=== PATIENT | female | born 1975 ===

== ENCOUNTER 2020-03-14 12:31 | Outpatient (REF) | payer OTHER, MEDICAID, SELFPAY ==
[2020-03-14 14:11] LABS: Basophils Absolute Auto 0.1 X10*3/uL (0.0-0.2); Basophils Percent Auto 1.1 % (0-2); Eosinophils Absolute Auto 0.4 X10*3/uL (0.0-0.4); Hematocrit 39.8 % (37-47); Hemoglobin 12.6 g/dl (12.0-16.0); Imm Gran Abs Auto 0.01 X10*3/uL (0.00-0.03); Imm Gran Pct Auto 0.1 % (0.0-0.4); Lymphocytes Absolute Auto 2.7 X10*3/uL (1.2-4.9); MANUAL DIFF FLAG NO; Mean Corpuscular HGB Conc 31.7 g/dl (31.0-35.0); Mean Corpuscular Hemoglobin 27.7 pg (27.0-33.0); Mean Corpuscular Volume 87.5 fL (80-98); Mean Platelet Volume 11.7 fL (9.4-12.3); Monocytes Absolute Auto 0.7 X10*3/uL (0.1-1.2); Monocytes Percent Auto 9.3 % (2-11); Neutrophils Percent Auto 50.5 % (45-73); Platelet Count 292 X10*3/uL (160-400); Red Blood Count 4.55 X10*6/uL (4.20-5.50); Red Cell Distribution Width 14.6 % (11.0-16.0)
[2020-03-14 14:32] LABS: Estimated Average Glucose 114 mg/dL; Hemoglobin A1c % 5.6 %
[2020-03-14 14:35] LABS: Glucose Urine UA NEG (NEG); Leukocyte Esterase Urine NEG (NEG); Nitrite Urine NEG (NEG); Urine Blood NEG (NEG); Urine Ketones 15 MG/DL (NEG); Urine Protein NEG (NEG-TRACE)
[2020-03-14 14:42] LABS: Appearance Urine HAZY; Color Urine YELLOW
[2020-03-14 14:53] LABS: Alanine Aminotransferase 29 U/L (0-31); Albumin Level 4.5 g/dL (3.5-5.0); Alkaline Phosphatase 71 U/L (39-117); Anion Gap 13 (12-20); Aspartate Amino Transferase 34 U/L (5-31); Bilirubin Total 0.4 mg/dL (0.0-1.0); Blood Urea Nitrogen 17 mg/dL (9-16); Carbon Dioxide 26 mmol/L (22-29); Chloride 104 mmol/L (96-108); Cholesterol 171 mg/dL; Estimated Glomerular Filt Rate > 60; Glucose Fasting 81 mg/dL (60-99); HDL Cholesterol 48 mg/dL; LDL Cholesterol Calculated 111 mg/dl; Potassium 4.1 mmol/l (3.3-5.1); Sodium 139 mmol/L (135-145); Total Protein 7.2 g/dL (6.5-8.0); Triglycerides 61 mg/dL
[2020-03-14 15:16] LABS: TSH reflex Free T4 1.75 mIU/mL (0.32-4.0); Vitamin D 25-OH Total 28.1 ng/mL (>30)
== END 2020-03-14 12:32 | disposition home or self-care (01) ==
LOC: HO.HMGCLDS 12:31
PROVIDERS: PCP Internal Medicine; Visit Provider Internal Medicine
DX: E55.9 Vitamin D deficiency, unspecified (principal); I10 Essential (primary) hypertension; N39.0 Urinary tract infection, site not specified; E66.9 Obesity, unspecified; E78.00 Pure hypercholesterolemia, unspecified; R53.83 Other fatigue; R42 Dizziness and giddiness; F17.200 Nicotine dependence, unspecified, uncomplicated; R73.01 Impaired fasting glucose
CPT/HCPCS: 36415; 80053; 80061; 81003; 82306; 83036; 84443; 85025

== ENCOUNTER 2020-09-14 09:54 | Outpatient (REF) | payer OTHER, MEDICAID, SELFPAY ==
[2020-09-14 11:14] LABS: MANUAL DIFF FLAG NO
[2020-09-14 11:25] LABS: Basophils Absolute Auto 0.1 X10*3/uL (0.0-0.2); Basophils Percent Auto 1.3 % (0-2); Eosinophils Absolute Auto 0.5 X10*3/uL (0.0-0.4); Hematocrit 38.5 % (37-47); Hemoglobin 11.8 g/dl (12.0-16.0); Imm Gran Abs Auto 0.03 X10*3/uL (0.00-0.03); Imm Gran Pct Auto 0.4 % (0.0-0.4); Lymphocytes Absolute Auto 2.5 X10*3/uL (1.2-4.9); Lymphocytes Percent Auto 30.8 % (20-40); Mean Corpuscular HGB Conc 30.6 g/dl (31.0-35.0); Mean Corpuscular Hemoglobin 26.3 pg (27.0-33.0); Mean Corpuscular Volume 85.9 fL (80-98); Mean Platelet Volume 11.9 fL (9.4-12.3); Monocytes Absolute Auto 0.8 X10*3/uL (0.1-1.2); Monocytes Percent Auto 9.8 % (2-11); Neutrophils Absolute Auto 4.1 X10*3/uL (2.0-8.3); Neutrophils Percent Auto 51.7 % (45-73); Platelet Count 270 X10*3/uL (160-400); Red Blood Count 4.48 X10*6/uL (4.20-5.50); Red Cell Distribution Width 15.6 % (11.0-16.0)
[2020-09-14 11:31] LABS: Estimated Average Glucose 117 mg/dL; Glucose Urine UA NEG (NEG); Hemoglobin A1c % 5.7 %; Leukocyte Esterase Urine NEG (NEG); Nitrite Urine NEG (NEG); PH 7.5 (5.0-8.0); Specific Gravity - Urine 1.015 (1.005-1.025); Urine Blood NEG (NEG); Urine Ketones NEG (NEG); Urine Protein NEG (NEG-TRACE)
[2020-09-14 11:43] LABS: Appearance Urine HAZY; Color Urine YELLOW
[2020-09-14 12:17] LABS: Alanine Aminotransferase 20 U/L (0-31); Alkaline Phosphatase 67 U/L (39-117); Anion Gap 13 (12-20); Aspartate Amino Transferase 20 U/L (5-31); Bilirubin Total 0.3 mg/dL (0.0-1.0); Blood Urea Nitrogen 11 mg/dL (9-16); Calcium 8.7 mg/dL (8.4-10.2); Carbon Dioxide 25 mmol/L (22-29); Chloride 108 mmol/L (96-108); Cholesterol 188 mg/dL; Estimated Glomerular Filt Rate > 60; Glucose Fasting 102 mg/dL (60-99); HDL Cholesterol 45 mg/dL; LDL Cholesterol Calculated 125 mg/dl; Potassium 5.1 mmol/L (3.3-5.1); Sodium 141 mmol/L (135-145); Total Protein 6.4 g/dL (6.5-8.0); Triglycerides 94 mg/dL
[2020-09-14 12:25] LABS: TSH reflex Free T4 1.69 uIU/mL (0.32-4.0); Vitamin D 25-OH Total 20.4 ng/mL (>30)
[2020-09-15 23:26] LABS: Insulin Level Total 12.2 uIU/mL
== END 2020-09-14 09:55 | disposition home or self-care (01) ==
LOC: HO.HMGCLDS 09:54
PROVIDERS: PCP Internal Medicine; Visit Provider Internal Medicine
DX: Z00.00 Encounter for general adult medical examination without abnormal findings (principal); E66.01 Morbid (severe) obesity due to excess calories; Z68.42 Body mass index [BMI] 45.0-49.9, adult; E16.2 Hypoglycemia, unspecified; K21.9 Gastro-esophageal reflux disease without esophagitis; E78.00 Pure hypercholesterolemia, unspecified; E55.9 Vitamin D deficiency, unspecified
CPT/HCPCS: 36415; 80053; 80061; 81003; 82306; 83036; 83525; 84443; 85025

== ENCOUNTER 2020-12-01 08:55 | Outpatient (REF) | payer OTHER, MEDICAID, SELFPAY ==
--- NOTE | ~2020-12-01 | XR_ITS ---
EXAMINATION: XR CHEST CLINICAL INFORMATION: Unspecified asthma with acute exacerbation COMPARISON: None TECHNIQUE: 2 views of the chest were obtained. FINDINGS: No significant abnormality is noted involving the heart, lungs, mediastinum, bony thorax or soft tissues. XR/XR chest 2V IMPRESSION: Unremarkable examination.
== END 2020-12-01 08:56 | disposition home or self-care (01) ==
LOC: HO.HMGCX 08:55
PROVIDERS: PCP Internal Medicine; Visit Provider Nurse Practitioner Family
DX: Z13.89 Encounter for screening for other disorder (principal)
CPT/HCPCS: 71046

== ENCOUNTER 2021-06-28 10:54 | Outpatient (REF) | payer OTHER, MEDICAID, SELFPAY ==
[2021-06-28 13:46] LABS: MANUAL DIFF FLAG NO
[2021-06-28 13:48] LABS: Basophils Absolute Auto 0.1 X10*3/uL (0.0-0.2); Basophils Percent Auto 0.3 % (0-2); Eosinophils Percent Auto 0.1 % (0-4); Hematocrit 38.3 % (37.0-47.0); Imm Gran Pct Auto 0.7 % (0.0-0.4); Lymphocytes Absolute Auto 3.5 X10*3/uL (1.2-4.9); Lymphocytes Percent Auto 23.1 % (20-40); Mean Corpuscular HGB Conc 31.3 g/dl (31.0-35.0); Mean Corpuscular Volume 86.3 fL (80.0-98.0); Mean Platelet Volume 12.1 fL (9.4-12.3); Monocytes Percent Auto 6.4 % (2-11); Neutrophils Absolute Auto 10.4 x10*3/uL (2.0-8.3); Neutrophils Percent Auto 69.4 % (45-73); Platelet Count 255 X10*3/uL (160-400); Red Blood Count 4.44 X10*6/uL (4.20-5.50); Red Cell Distribution Width 15.1 % (11.0-16.0)
[2021-06-28 14:08] LABS: Alanine Aminotransferase 28 U/L (0-31); Albumin Level 3.9 g/dL (3.5-5.0); Alkaline Phosphatase 68 U/L (39-117); Anion Gap 11 (12-20); Aspartate Amino Transferase 20 U/L (5-31); Bilirubin Total 0.4 mg/dL (0.0-1.0); Blood Urea Nitrogen 12 mg/dL (9-16); Calcium 9.3 mg/dL (8.4-10.2); Carbon Dioxide 29 mmol/L (22-29); Chloride 104 mmol/L (96-108); Cholesterol 208 mg/dL; Estimated Glomerular Filt Rate > 60; Glucose Fasting 86 mg/dL (60-99); HDL Cholesterol 58 mg/dL; LDL Cholesterol Calculated 134 mg/dl; Sodium 140 mmol/L (135-145); Total Protein 6.5 g/dL (6.5-8.0); Triglycerides 84 mg/dL
[2021-06-28 14:26] LABS: Appearance Urine HAZY; Color Urine YELLOW; Glucose Urine UA NEG (NEG); Leukocyte Esterase Urine NEG (NEG); Nitrite Urine NEG (NEG); PH 6.5 (5.0-8.0); Specific Gravity - Urine >= 1.030 (1.005-1.025); Urine Blood NEG (NEG); Urine Ketones NEG (NEG); Urine Protein NEG (NEG-TRACE)
[2021-06-28 14:30] LABS: TSH reflex Free T4 1.19 uIU/mL (0.32-4.0); Vitamin D 25-OH Total 22.8 ng/mL (>30)
== END 2021-06-28 10:55 | disposition home or self-care (01) ==
LOC: HO.HMGCLDS 10:54
PROVIDERS: PCP Internal Medicine; Visit Provider Internal Medicine
DX: I10 Essential (primary) hypertension (principal); E55.9 Vitamin D deficiency, unspecified; E78.00 Pure hypercholesterolemia, unspecified
CPT/HCPCS: 36415; 80053; 80061; 81003; 82306; 84443; 85025

== ENCOUNTER 2022-01-30 11:11 | Outpatient (REF) | payer OTHER, MEDICAID, SELFPAY ==
[2022-01-30 15:10] LABS: Alanine Aminotransferase 36 U/L (0-31); Albumin Level 4.4 g/dL (3.5-5.0); Alkaline Phosphatase 72 U/L (39-117); Anion Gap 11 (12-20); Aspartate Amino Transferase 33 U/L (5-31); Bilirubin Total 0.4 mg/dL (0.0-1.0); Blood Urea Nitrogen 17 mg/dL (9-16); Calcium 9.4 mg/dL (8.4-10.2); Carbon Dioxide 27 mmol/L (22-29); Chloride 103 mmol/L (96-108); Cholesterol 212 mg/dL; Estimated Glomerular Filt Rate > 60; Glucose Fasting 88 mg/dL (60-99); HDL Cholesterol 57 mg/dL; LDL Cholesterol Calculated 138 mg/dl; Potassium 4.5 mmol/L (3.3-5.1); Sodium 136 mmol/L (135-145); TSH reflex Free T4 2.26 uIU/mL (0.32-4.0); Triglycerides 85 mg/dL; Vitamin D 25-OH Total 25.7 ng/mL (>30)
== END 2022-01-30 11:12 | disposition home or self-care (01) ==
LOC: HO.HMGCLDS 11:11
PROVIDERS: PCP Internal Medicine; Visit Provider Internal Medicine
DX: E55.9 Vitamin D deficiency, unspecified (principal); E78.00 Pure hypercholesterolemia, unspecified
CPT/HCPCS: 36415; 80053; 80061; 82306; 84443

== ENCOUNTER → 2022-02-20 14:09 | Outpatient (BNVA) | payer OTHER, SELFPAY | PROVIDERS: PCP Internal Medicine; Visit Provider Physician Assistant Medical | DX: Z77.21 Contact with and (suspected) exposure to potentially hazardous body fluids (principal) | CPT/HCPCS: 36415; 84450; 84460; 86706; 86803; 87389; 99203 ==

== ENCOUNTER → 2022-03-20 13:18 | Outpatient (REF) | payer OTHER, MEDICAID, SELFPAY ==
--- NOTE | 2022-03-20 13:21 | CA_ITS ---
Transthoracic Echocardiogram Patient (Last, First, Middle): Kimberly Arthur, Gender: Female Date of : 1975 Age: 46 Procedure Date: 03/20/2022 Procedure Type: Transthoracic Echocardiogram Location: OP Height: 170.18 cm Weight: 127.01 kg BSA: 2.33 m2 Heart Rate: bpm BP: 140 / 92 mmHg Feeder/Folder: TO Referring MD: Jermaine Waldron MD Computerized [place] Recorder: Lj Sargent MD Symptoms: R00.2 - Palpitations Study Quality: Adequate ECG Rhythm: Sinus Conclusions: - Essentially normal study Findings Left Ventricle Normal left ventricular size, thickness, and systolic function. The visually estimated ejection fraction is between 60-65%. Spectral Doppler is indicative of a normal filling pattern. Right Ventricle Normal right ventricular cavity size and systolic function. Atria Both atria are normal in size. Interatrial shunt cannot be excluded. Aortic Valve Normal aortic valve structure and function. There is no aortic valve stenosis. There is no aortic valve regurgitation. Mitral Valve Normal mitral valve structure and function. There is trace mitral valve regurgitation. There is no mitral valve stenosis. Pulmonic Valve The pulmonic valve is likely normal. Tricuspid Valve Normal tricuspid valve structure. There is no tricuspid valve regurgitation. The right ventricular systolic pressure is normal. Normal right atrial pressure. There is no evidence of pulmonary hypertension. Great Vessels All visible segments of the aorta are normal in size. The pulmonary artery was not well visualized. Venous The inferior vena cava is normal in size and collapses greater than 50% with inspiration. Pericardium/Pleural There is no evidence of pericardial effusion. Prior Study Comparison No prior study available for comparison. Measurements 2D Linear Measurements IVSd: 1.02 0.6-0.9/0.6-1.0 cm LVIDd: 5.05 3.9-5.3/4.2-5.9 cm LVIDd Index: 2.17 2.4-3.2/2.2-3.1 cm/m2 LVIDs: 2.97 2.0-3.6 cm LVPWd: 0.86 0.7-1.1 cm LA Diam: 4.00 2.7-3.8/3.0-4.0 cm LAIDs Index: 1.72 1.5-2.3 cm/m2 LV Mass: 211.44 67-162/88-224 g LV Mass Index: 90.75 43-95/49-115 g/m2 LVOT Diam: 2.10 3.0+(-)1.3 cm 2D Systolic Function EF 4C: 62.60 >55% EF 2C: 66.60 >55% EF BiP: 64.80 >55% Mitral Valve MV Pk E: 0.90 MV PK A: 0.82 MV Decel Time: 166.00 E/A: 1.10 E'Lateral: 10.30 E'Medial: 8.27 E/E' Med: 10.90 E/E' Lat: 8.70 PHT: 49.00 MVA PHT: 4.49 Decel Nicholas: 5.42 Aortic Valve AoV Pk Cody: 2.05 AoV Mn Cody: 1.43 AoV VTI: 0.42 AoV Pk Grad: 17.00 Aov Mn Grad: 9.00 FREDERICK Cont.VTI: 2.41 LVOT LVOT Pk Cody: 1.43 LVOT Mn Cody: 1.00 LVOT VTI: 0.30 LVOT Pk Grad: 8.00 LVOT Mn Grad: 4.00 LVOT Diam: 2.10 LVOT Area: 3.46 Diastolic Function MV Pk E: 0.90 MV Pk A: 0.82 E/A: 1.10 E'Medial: 8.27 E/E' Med: 10.90 E' Laterial: 10.30 E/E' Lat: 8.70 Right Ventricle TAPSE (mm): 24.80 TVS' Cody: 17.70 Tricuspid Valve TR Pk Cody: 2.67 TR Pk Grad: 29.00 RA Press: 3.00 RVSP: 32.00 Great Vessels Aorta Sinus of Valsalva: 3.19 2.0-3.[address] [place]: 2.40 1.7-3.4 cm Ao Asc: 3.00 2.1-3.4 cm Updated in Other Vendor System with Status of Final Lj Sargent MD electronically signed on 03/20/2022 4:34:57 PM with status of Final
--- NOTE | 2022-03-20 13:21 | HM_ITS ---
* Total monitoring time approximately 3 days. * Underlying rhythm is sinus. Average ventricular rate 83/Min. Range 51 to 132/Min. * Very rare PVCs/PACs. * No significant pauses or AV blocks. * No patient marker or diary. MTDD
== END ==
LOC: HO.CARD 13:18
PROVIDERS: PCP Internal Medicine; Visit Provider Internal Medicine
DX: R06.09 Other forms of dyspnea (principal); R00.2 Palpitations
CPT/HCPCS: 93242; 93306

== ENCOUNTER → 2022-04-03 12:23 | Outpatient (BNVA) | payer OTHER, SELFPAY | PROVIDERS: PCP Internal Medicine | DX: Z77.21 Contact with and (suspected) exposure to potentially hazardous body fluids (principal) | CPT/HCPCS: 36415; 84450; 84460; 87389 ==

== ENCOUNTER → 2022-04-03 12:42 | Outpatient (REF) | payer OTHER, SELFPAY ==
--- NOTE | 2022-04-03 13:16 | HM_ITS ---
* Total monitoring time 3 days. * Underlying rhythm is sinus. Average ventricular rate 82/Min. Range 65 to 136/Min. * Minimal PAC/PVC burden. 6 PACs and 1 PVC. * No sustained arrhythmias. * No significant pauses or AV block. * Palpitations in diary correlates with sinus rhythm and artifact. MTDD
== END ==
LOC: HO.CARD 12:42
PROVIDERS: Visit Provider Internal Medicine
DX: R00.2 Palpitations (principal)
CPT/HCPCS: 93242

== ENCOUNTER → 2022-06-04 10:55 | Outpatient (BNVA) | payer OTHER, SELFPAY | PROVIDERS: PCP Internal Medicine | DX: Z77.21 Contact with and (suspected) exposure to potentially hazardous body fluids (principal) | CPT/HCPCS: 36415; 80053; 80061; 86706; 86803; 87389; 99211 ==

== ENCOUNTER 2022-07-05 10:50 | Outpatient (REF) | payer OTHER, MEDICAID, SELFPAY ==
[2022-07-05 11:04] LABS: MANUAL DIFF FLAG NO
[2022-07-05 11:53] LABS: Basophils Absolute Auto 0.1 X10*3/uL (0.0-0.2); Basophils Percent Auto 1.3 % (0-2); Eosinophils Absolute Auto 0.4 X10*3/uL (0.0-0.4); Eosinophils Percent Auto 4.8 % (0-4); Hematocrit 41.5 % (37.0-47.0); Hemoglobin 12.8 g/dl (12.0-16.0); Imm Gran Abs Auto 0.03 X10*3/uL (0.00-0.03); Imm Gran Pct Auto 0.4 % (0.0-0.4); Lymphocytes Absolute Auto 2.7 X10*3/uL (1.2-4.9); Lymphocytes Percent Auto 35.4 % (20-40); Mean Corpuscular HGB Conc 30.8 g/dl (31.0-35.0); Mean Corpuscular Hemoglobin 27.1 pg (27.0-33.0); Mean Corpuscular Volume 87.9 fL (80.0-98.0); Mean Platelet Volume 12.3 fL (9.4-12.3); Monocytes Absolute Auto 0.7 X10*3/uL (0.1-1.2); Monocytes Percent Auto 9.2 % (2-11); Neutrophils Absolute Auto 3.8 x10*3/uL (2.0-8.3); Neutrophils Percent Auto 48.9 % (45-73); Platelet Count 250 X10*3/uL (160-400); Red Blood Count 4.72 X10*6/uL (4.20-5.50); Red Cell Distribution Width 14.9 % (11.0-16.0); White Blood Count 7.8 X10*3/uL (4.8-10.8)
[2022-07-05 12:30] LABS: Alanine Aminotransferase 36 U/L (0-31); Aspartate Amino Transferase 32 U/L (5-31)
[2022-07-05 12:37] LABS: Alanine Aminotransferase 37 U/L (0-31); Albumin Level 4.1 g/dL (3.5-5.0); Alkaline Phosphatase 63 U/L (39-117); Anion Gap 13 (12-20); Aspartate Amino Transferase 32 U/L (5-31); Bilirubin Total 0.4 mg/dL (0.0-1.0); Blood Urea Nitrogen 13 mg/dL (9-16); Calcium 9.3 mg/dL (8.4-10.2); Carbon Dioxide 24 mmol/L (22-29); Chloride 107 mmol/L (96-108); Estimated Glomerular Filt Rate > 60; Glucose Random 86 mg/dL (60-115); Lipase 22 U/L (8-78); Potassium 4.5 mmol/L (3.3-5.1); Sodium 139 mmol/L (135-145); Total Protein 6.7 g/dL (6.5-8.0)
== END 2022-07-05 10:51 | disposition home or self-care (01) ==
LOC: HO.LAB 10:50
PROVIDERS: Internal Medicine; PCP Internal Medicine; Visit Provider Internal Medicine
DX: R79.89 Other specified abnormal findings of blood chemistry (principal); Z77.21 Contact with and (suspected) exposure to potentially hazardous body fluids
CPT/HCPCS: 36415; 80053; 83690; 84450; 84460; 85025

== ENCOUNTER → 2022-08-22 10:53 | Outpatient (BNVA) | payer OTHER, SELFPAY | PROVIDERS: PCP Internal Medicine | DX: Z77.21 Contact with and (suspected) exposure to potentially hazardous body fluids (principal) | CPT/HCPCS: 36415; 80053; 80061; 81003; 82306; 84443; 84450; 84460; 85025; 86803; 87389; 99211 ==

== ENCOUNTER 2022-11-14 09:57 | Outpatient (AMB) | payer OTHER, MEDICAID, SELFPAY ==
[2022-11-14 09:58] VITALS: BP 142/86; PULSE 84; O2SAT 100; BMI 46.4
--- NOTE | 2022-11-14 09:58 | A.OFFPC_ITS ---
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 Allergies atorvastatin Allergy (Unknown, Verified 11/14/22 10:22) chest pain Medication List - Last Reconciled 11/14/22 by JOVI Ochoa albuterol sulfate 90 mcg/actuation (ProAir HFA) 2 puffs inhalation Q4-6H PRN 30 days budesonide-formoterol 160-4.5 mcg/actuation (Symbicort) 2 puffs inhalation BID 30 days bupropion HCl 300 mg PO QAM bupropion HCl 150 mg PO QAM cholecalciferol (vitamin D3) 50 mcg PO DAILY 90 days clonazepam 1/2 to 1 tablet orally once a day as needed for anxiety; 30 days fluoxetine 20 mg PO QAM 90 days loratadine 10 mg PO DAILY PRN 90 days metoprolol succinate ER 25 mg PO DAILY 90 days Mounjaro (tirzepatide) 2.5 mg (0.5 mL) subcut QWEEK 4 weeks NS omeprazole 40 mg PO DAILY rosuvastatin 5 mg PO DAILY 90 days semaglutide (weight loss) (Wegovy) 0.25 mg (0.5 mL) subcut QWEEK Tobacco use date assessed: 11/14/22 Dental Screening Dental Screen Date: 11/14/22 Did you have a dental visit in the last 12 months?: Yes Did you have a dental problem in the last 6 months where you did not have access to dental care?: No Was dental information given to patient?: Patient has dentist HPI ED f/u for palpitations HPI Details Patient is a 47-year-old female presents today to follow-up after emergency department visit [facility] 11/13/2022 due to palpitations for the past [address] Waldron. Medical history significant for hypercholesterolemia, asthma, GERD, insomnia, smoker, anxiety, depression, intermittent palpitations among others. In ED on monitor her heart rate is normal. X-ray, EKG, troponin, CBC and electrolytes are all normal. Patient has been normal sinus rhythm. Patient was instructed to follow-up with her PCP for another Holter monitor. Today, patient reports almost constant palpitations, she reports them in the past as well. Reports intermittent lightheadedness. She reports drinking coffee and smoking 3-5 cigarettes per day. No shortness of breath or chest pain. 03/2022 * Total monitoring time 3 days. * Underlying rhythm is sinus. Average ventricular rate 82/Min. Range 65 to 136/Min. * Minimal PAC/PVC burden. 6 PACs and 1 PVC. * No sustained arrhythmias. * No significant pauses or AV block. * Palpitations in diary correlates with sinus rhythm and artifact. [facility] Medical History Elevated LFTs Morbid obesity with BMI of 40.0-44.9, adult Depression Anxiety Morbid obesity with BMI of 45.0-49.9, adult Hypoglycemia Recurrent urinary tract infection Smoker Insomnia Fatigue GERD without esophagitis Vitamin D deficiency Asthma Pure hypercholesterolemia Dizziness Surgical History History of use of contraceptive intrauterine device (IUD) Family History Father Hypertension Mother Diabetes Sister Cervical cancer Social History Housing: House Alcohol intake: current Alcohol intake frequency: holidays/special occasions only Patient Tobacco Use Status: Current everyday Tobacco user Tobacco use type: Cigarette Cigarettes Per Day: 4 e-Cigarette/Vaping Use: Never Used Second Hand Smoke Exposure: Yes service: No Current occupational status: employed Cognitive needs: No Hearing needs: No Vision needs: No Questionnaire Thrive Questionnaire Date Thrive assessed: 07/05/22 AUDIT C Alcohol Use Questionnaire (AUDIT-C) 1. How often do you have a drink containing alcohol?: Never 3. How often do you have six or more drinks on one occasion?: Never Total Score: 0 Score Reviewed/Action Taken: No CHARO-7 AMB Questionnaire CHARO-7 Date CHARO - 7 assessed: 07/05/22 Source: Developed by Kathy KayeW. Simeon, Jason Harper and colleagues, with an educational mani from [employer]. Review of Systems Const Denies body aches, Denies chills, Denies fever(s) and Denies headache(s) Eyes Denies change in vision ENT Denies dizziness, Denies otalgia, Denies headache(s), Denies nasal discharge, Denies sinus pain and Denies sore throat Card Details: Palpitations Denies chest pain, Denies edema, Denies lightheadedness and Denies dyspnea Resp Denies cough, Denies dyspnea and Denies wheezing GI Denies abdominal pain Denies dysuria Musc Denies myalgias Skin/Breast Denies rash Neuro Denies dizziness and Denies headache(s) Aller/Immun Denies wheezing Physical exam (Primary Care) Vital Signs: Last Vital Signs Pulse 84 11/14/22 09:58 BP 142/86 H 11/14/22 09:58 Pulse Ox 100 11/14/22 09:58 Oxygen Delivery Method Room Air 11/14/22 09:58 BMI result Body Mass Index 46.4 Tobacco/Smoking Status: Tobacco use Status Tobacco use date assessed 11/14/22 11/14/22 10:00 Patient Tobacco Use Status Current everyday Tobacco 11/14/22 09:59 Tobacco use type Cigarette 11/14/22 09:59 e-Cigarette/Vaping Use Never Used 11/14/22 09:59 Thrive Assessment: Date of Thrive Assessment Date Thrive assessed 07/05/22 11/14/22 09:59 Const General: cooperative and no acute distress Orientation/consciousness: patient oriented x3 HENMT Head: Yes normocephalic and Yes atraumatic Face and sinus: Yes sinuses nontender Mouth: oropharynx normal and moist mucous membranes Throat: Yes posterior oropharynx normal Eyes General: appearance normal, both eyes and all related structures Pupils: Equal, round and reactive pupils present Neck Neck: Yes normal visual inspection, Yes full ROM and Yes no lymphadenopathy Thyroid: Thyroid normal Resp Effort & Inspection: normal respiratory effort and able to speak in complete sentences Auscultation: clear to auscultation bilaterally, no crackles, no rales, no rhonchi and no wheezes Cardio Rate: regular rate Rhythm: regular rhythm Heart sounds: S1 normal heart sound present, S2 normal heart sound present and no murmurs GI Auscultation: normal bowel sounds Skin General skin exam: no rashes or lesions noted Neuro General: patient oriented x3 Cranial nerves: Yes Equal, round and reactive pupils present Gait exam (Neuro): Normal gait present Extrem General: Yes full ROM Assessment and Plan Assessment & Plan (1) Intermittent palpitations: Code(s): R00.2 - Palpitations Plan: Patient with almost constant palpitations for the past 4 days. Was seen in the emergency department no acute findings. Will check thyroid blood work. Will obtain Holter monitor. Will refer to Cardiology for an evaluation and treat ment. Signs and symptoms reviewed to notify provider or go to the emergency department. Patient agreed with the plan. Orders: Orders TSH reflex Free T4 Today R00.2 - Palpitations ECG 3 day holter monitor Today R00.2 - Palpitations Referrals Cardiology Referral R00.2 - Palpitations Coding Level of Care Code Est Pt Level 3 (46771) Diagnoses Intermittent palpitations R00.2
[2022-11-14 10:39] VITALS: BP 126/84
== END 2022-11-14 10:41 | disposition home or self-care (01) ==
PROVIDERS: PCP Internal Medicine; Visit Provider Nurse Practitioner Family
DX: R00.2 Palpitations (principal)
CPT/HCPCS: 99213

== ENCOUNTER → 2022-11-19 09:23 | Outpatient (REF) | payer OTHER, SELFPAY ==
--- NOTE | 2022-11-19 09:26 | HM_ITS ---
Conclusion: 1. Patient was monitored for total period of 2 days and 12 hours 2. Baseline was normal sinus rhythm with average heart of 84 beats per minute 3. No significant pauses noted 4. No significant arrhythmias noted 5. No patient reported events MTDD
== END ==
LOC: HO.CARD 09:23
PROVIDERS: PCP Internal Medicine; Visit Provider Nurse Practitioner Family
DX: R00.2 Palpitations (principal)
CPT/HCPCS: 93242

== ENCOUNTER → 2022-11-19 09:26 | Outpatient (BNV) | payer OTHER, SELFPAY | PROVIDERS: PCP Internal Medicine; Visit Provider Internal Medicine Cardiovascular Disease | DX: R00.2 Palpitations (principal) | CPT/HCPCS: 93244 ==

== ENCOUNTER → 2022-11-22 08:47 | Outpatient (BNVA) | payer OTHER, SELFPAY | PROVIDERS: PCP Internal Medicine | DX: Z77.21 Contact with and (suspected) exposure to potentially hazardous body fluids (principal) | CPT/HCPCS: 99211 ==

== ENCOUNTER → 2022-12-21 10:41 | Outpatient (BNVA) | payer OTHER, SELFPAY | PROVIDERS: PCP Internal Medicine; Visit Provider Physician Assistant Surgical ==

== ENCOUNTER 2022-12-27 11:19 | Outpatient (AMB) | payer OTHER, MEDICAID, SELFPAY ==
[2022-12-27 11:21] VITALS: BP 118/80; PULSE 87; O2SAT 98
--- NOTE | 2022-12-27 11:21 | MHC.PC.OV ---
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 Required: No Accompanied by: Self / Same As Patient Allergies atorvastatin Allergy (Unknown, Verified 12/27/22 11:37) chest pain Medication List - Last Reconciled 12/27/22 by Jermaine Waldron MD albuterol sulfate 90 mcg/actuation (ProAir HFA) 2 puffs inhalation Q4-6H PRN 30 days budesonide-formoterol 160-4.5 mcg/actuation (Symbicort) 2 puffs inhalation BID 30 days bupropion HCl 300 mg PO QAM bupropion HCl 150 mg PO QAM cholecalciferol (vitamin D3) 50 mcg PO DAILY 90 days clonazepam 1/2 to 1 tablet orally once a day as needed for anxiety; 30 days fluoxetine 20 mg PO QAM 90 days loratadine 10 mg PO DAILY PRN 90 days metoprolol succinate ER 25 mg PO DAILY 90 days omeprazole 40 mg PO DAILY rosuvastatin 5 mg PO DAILY 90 days semaglutide (weight loss) (Wegovy) 0.25 mg (0.5 mL) subcut QWEEK Tobacco use date assessed: 12/27/22 Dental Screening Dental Screen Date: 12/27/22 Did you have a dental visit in the last 12 months?: No Did you have a dental problem in the last 6 months where you did not have access to dental care?: No Was dental information given to patient?: No HPI Papitations HPI Details Patient comes in today for her follow up visit States that she is still experiencing on and off palpitations Patient went to the ER last month when she started feeling sensations of palpitations again - recalls feeling like her heart was beating irregularly and was going to come out of her chest at the time Work ups done in the ER again all came out negative She had an echocardiogram done back in March that came out completely normal She also had a 3 day Holter done back in November that came out normal - baseline was normal sinus rhythm with an average heart rate of 84 beats per minute, with no significant pauses or arrhythmias noted She has been referred to Cardiology and is scheduled to be seen in February 2023 States that she went to [place] and was seen by a fan blade truer there recently as she could not wait until February to get seen - was advised that she may need to get at least a 7-day Holter monitor to hopefully catch her arrhythmia when it is ongoing She currently denies any dizziness or headaches but reports feeling fatigued often for a few months now, irregardless of how much sleep she gets States that she also often feels like she can use a nap during the day due to her increased fatigue Has been told that she snores heavily when sleeping at night Denies any chest pains, no shortness of breath No nausea/vomiting, no abdominal pain No change in bowel habits noted Adds that she has been experiencing increased pain in her right shoulder lately; does not recall any recent injury or trauma to her shoulder States that her weight was at 293 lbs when she checked it yesterday and did not want to be weighed again today [facility] Medical History (Updated 12/27/22 @ 22:56 by Jermaine Waldron MD) Elevated LFTs Morbid obesity with BMI of 40.0-44.9, adult Depression Anxiety Morbid obesity with BMI of 45.0-49.9, adult Hypoglycemia Recurrent urinary tract infection Smoker Insomnia Fatigue GERD without esophagitis Vitamin D deficiency Asthma Pure hypercholesterolemia Dizziness Surgical History History of use of contraceptive intrauterine device (IUD) Family History Father Hypertension Mother Diabetes Sister Cervical cancer Social History Housing: House Alcohol intake: current Alcohol intake frequency: holidays/special occasions only Patient Tobacco Use Status: Current everyday Tobacco user Tobacco use type: Cigarette Cigarettes Per Day: 4 e-Cigarette/Vaping Use: Never Used Second Hand Smoke Exposure: Yes service: No Current occupational status: employed Cognitive needs: No Hearing needs: No Vision needs: No Questionnaire PHQ-9 Over the last 2 weeks, how often have you been bothered by any of the following problems? 1. Little interest or pleasure in doing things: several days 2. Feeling down, depressed, or hopeless: several days 3. Trouble falling or staying asleep, or sleeping too much: several days 4. Feeling tired or having little energy: several days 5. Poor appetite or overeating: several days 6. Feeling bad about yourself - or that you are a failure or have let yourself or your family down: not at all 7. Trouble concentrating on things, such as reading the newspaper or watching television: not at all 8. Moving or speaking so slowly that other people could have noticed. Or the opposite - being so fidgety or restless that you have been moving around a lot more than usual: not at all 9. Thoughts that you would be better off or of hurting yourself in some way: not at all Total score: 5 Depression Screening Interpretation: Positive Depression Screening Follow-up: Existing condition and In treatment Depression Screening Done: Yes 59526 - PHQ-9 Billing: Yes Source: Developed by Drs. Froylan Marie, Kathy Hendrix, Jason Harper and colleagues, with an educational mani from [employer]. Thrive Questionnaire Date Thrive assessed: 12/27/22 I am a: Patient What is your living situation today?: I have a steady place to live Within the past 12 months, did the food you bought not last and you didn't have the money to get more?: Never true Within the past 12 months, did you worry whether your food would run out before you got money to buy more?: Never true Do you have trouble paying for medicines?: No Do you have trouble getting transportation to medical appointments?: No Do you have trouble paying your heating and electricity bill?: No Do you have trouble taking care of your child, family member or friend?: No Do you have trouble with day-to-day activities such as bathing, preparing meals, shopping, managing finances, etc.?: No Are you currently unemployed and looking for a job?: No Are you interested in more education?: No Please select the resources that you would like help with: None Currently or been in a relationship where the following occur: no concerns reported AUDIT C Alcohol Use Questionnaire (AUDIT-C) 1. How often do you have a drink containing alcohol?: Never 3. How often do you have six or more drinks on one occasion?: Never Total Score: 0 Score Reviewed/Action Taken: Yes CHARO-7 AMB Questionnaire CHARO-7 Date CHARO - 7 assessed: 12/27/22 Feeling nervous, anxious, or on edge: 0 = Not at all Not being able to stop or control worryin = Not at all Worrying too much about different things: 0 = Not at all Trouble relaxin = Not at all Being so restless that it is hard to sit still: 0 = Not at all Becoming easily annoyed or irritable: 0 = Not at all Feeling afraid as if something awful might happen: 0 = Not at all Total CHARO-7 score (0-4 normal; 5-9 mild; 10-14 moderate; 15-21 severe): 0 Source: Developed by Drs. Froylan Marie, Kathy Hendrix, Jason Harper and colleagues, with an educational mani from [employer]. Review of Systems Const Reports daytime sleepiness, Reports fatigue (increased lately), Denies fever(s), Denies headache(s) and Reports snoring (heavily) ENT Denies dysphagia, Denies dizziness, Denies otalgia, Denies headache(s), Denies odynophagia and Denies sore throat Card Details: occasional palpitations Denies chest pain, Reports palpitations (on and off) and Denies dyspnea Resp Denies cough, Denies dyspnea and Reports snoring (heavily) GI Denies abdominal pain, Denies constipation, Denies dysphagia, Denies heartburn, Denies diarrhea, Denies nausea, Denies odynophagia and Denies vomiting Denies difficulty voiding, Denies nocturia and Denies dysuria Musc Reports arthralgias (in the right shoulder) Neuro Denies dizziness and Denies headache(s) Psych Reports anxiety Endo Reports fatigue (increased lately) and Reports palpitations (on and off) Physical exam (Primary Care) Vital Signs: Last Vital Signs Pulse 87 12/27/22 11:21 BP 118/80 12/27/22 11:21 Pulse Ox 98 12/27/22 11:21 Oxygen Delivery Method Room Air 12/27/22 11:21 Tobacco/Smoking Status: Tobacco use Status Tobacco use date assessed 12/27/22 12/27/22 11:26 Patient Tobacco Use Status Current everyday Tobacco 12/27/22 11:26 Tobacco use type Cigarette 12/27/22 11:26 e-Cigarette/Vaping Use Never Used 12/27/22 11:26 PHQ-9: PHQ-9 Score PHQ-9: Total score 5 12/27/22 11:43 Depression Screening Interpretation: Positive Depression Screening Follow-up: Existing condition and In treatment Thrive Assessment: Date of Thrive Assessment Date Thrive assessed 12/27/22 12/27/22 11:26 Currently or been in a relationship where the following occur: no concerns reported Const General: no acute distress and alert HENMT Throat: Yes posterior oropharynx normal and Yes tonsils normal (no TP congestion) Neck Neck: Yes no lymphadenopathy and Yes supple Resp Auscultation: clear to auscultation bilaterally, no rales and no wheezes Cardio Rate: regular rate Rhythm: regular rhythm Heart sounds: no murmurs GI Palpation (GI): Soft to palpation and nontender Auscultation: normal bowel sounds Skin Rashes: no rashes Extrem General: Yes no clubbing, cyanosis or edema Right upper extremity: shoulder/upper arm Details: tenderness Location: of the A-C joint Assessment and Plan Assessment & Plan (1) Heart palpitations: Code(s): R00.2 - Palpitations Plan: Continue Metoprolol ER 25 mg QD for now Patient had an echocardiogram done earlier this year that came out normal 3-day Holter monitor done last month also came out normal She is scheduled to see Cardiology in February 2023 for further evaluation but she went out on her own and so a fan blade truer in [place] recently as she did not want to wait until February - was reportedly advised that she should try to get at least a 7 day Holter monitor to hopefully catch her arrhythmia when it occurs Will go ahead and send her for a 7 day Holter monitor for further evaluation Will also send her for some additional labs MARIELENA for further evaluation She is advised to keep her cardiology appointment in February 2023 (2) Fatigue: Code(s): R53.83 - Other fatigue Qualifiers: Fatigue type: unspecified Qualified Code(s): R53.83 - Other fatigue Plan: Due to her recently increased fatigue, daytime somnolence, and other ongoing symptoms, will refer her to Sleep Medicine MARIELENA for further evaluation Discussed with patient that a sleep study might be in order to further evaluate her symptoms and to check her out for potential sleep apnea, which if she has, should be treated (3) Pure hypercholesterolemia: Code(s): E78.00 - Pure hypercholesterolemia, unspecified Plan: Reinforced low cholesterol diet Continue Rosuvastatin 5 mg QD (4) Asthma: Code(s): J45.909 - Unspecified asthma, uncomplicated Qualifiers: Asthma severity: mild Asthma persistence: intermittent Asthma complication type: uncomplicated Qualified Code(s): J45.20 - Mild intermittent asthma, uncomplicated Plan: Continue Symbicort 160-4.5 mcg 2 inhalations BID and Albuterol HFA 2 inhalations every 6 hours as needed (5) Right shoulder pain: Code(s): M25.511 - Pain in right shoulder Qualifiers: Chronicity: unspecified Qualified Code(s): M25.511 - Pain in right shoulder Plan: Will send her for right shoulder x-rays for further evaluation (6) Anxiety: Code(s): F41.9 - Anxiety disorder, unspecified Plan: Continue Clonazepam 0.5 mg 1/2 to 1 tablet once a day as needed and Fluoxetine 20 mg QD She has been referred to psychiatry and also for counseling and therapy (7) Depression: Code(s): F32.9 - Major depressive disorder, single episode, unspecified Qualifiers: Depression Type: unspecified Qualified Code(s): F32.9 - Major depressive disorder, single episode, unspecified Plan: Continue Bupropion ER 450 mg once a day and Fluoxetine 20 mg QD She has been referred to psychiatry for further evaluation and management (8) Smoker: Code(s): F17.200 - Nicotine dependence, unspecified, uncomplicated Plan: Counseled again on smoking cessation (9) Morbid obesity with BMI of 45.0-49.9, adult: Code(s): E66.01 - Morbid (severe) obesity due to excess calories; Z68.42 - Body mass index [BMI] 45.0-49.9, adult Plan: Reinforced diet/exercise as tolerated/lose weight Plan Follow up as scheduled in February 2023 Orders: Orders XR shoulder RT min 2V Today M25.511 - Pain in right shoulder Magnesium Today E83.42 - Hypomagnesemia, M25.511 - Pain in right shoulder, R00.2 - Palpitations ECG 7 day holter monitor Today R00.2 - Palpitations Complete Blood Count Auto Diff Today I10 - Essential (primary) hypertension, M25.511 - Pain in right shoulder, R00.2 - Palpitations Comprehensive Met. Panel Today M25.511 - Pain in right shoulder, R00.2 - Palpitations TSH reflex Free T4 Today E78.00 - Pure hypercholesterolemia, unspecified, M25.511 - Pain in right shoulder, R00.2 - Palpitations Erythrocyte Sedimentation Rate Today M25.511 - Pain in right shoulder, M79.7 - Fibromyalgia, R00.2 - Palpitations C Reactive Protein Today M25.511 - Pain in right shoulder, R00.2 - Palpitations Referrals Sleep Medicine Referral E66.01 - Morbid (severe) obesity due to excess calories, R00.2 - Palpitations, R06.83 - Snoring, R40.0 - Somnolence, R53.83 - Other fatigue, Z68.42 - Body mass index [BMI] 45.0-49.9, adult Coding Level of Care Code Est Pt Level 4 (46373) Diagnoses Heart palpitations R00.2 Fatigue, unspecified type R53.83 Fatigue type: unspecified Pure hypercholesterolemia E78.00 Mild intermittent asthma without complication J45.20 Asthma severity: mild Asthma persistence: intermittent Asthma complication type: uncomplicated Right shoulder pain, unspecified chronicity M25.511 Chronicity: unspecified Anxiety F41.9 Depression, unspecified depression type F32.9 Depression Type: unspecified Smoker F17.200 Morbid obesity with BMI of 45.0-49.9, adult E66.01; Z68.42
== END 2022-12-27 11:52 | disposition home or self-care (01) ==
PROVIDERS: PCP Internal Medicine; Visit Provider Internal Medicine
DX: R00.2 Palpitations (principal); R53.83 Other fatigue; E66.01 Morbid (severe) obesity due to excess calories; Z68.42 Body mass index [BMI] 45.0-49.9, adult; J45.20 Mild intermittent asthma, uncomplicated; E78.00 Pure hypercholesterolemia, unspecified; M25.511 Pain in right shoulder; F41.9 Anxiety disorder, unspecified; F32.9 Major depressive disorder, single episode, unspecified; F17.210 Nicotine dependence, cigarettes, uncomplicated
CPT/HCPCS: 99214

== ENCOUNTER 2023-01-18 08:14 | Outpatient (AMB) | payer OTHER, MEDICAID, SELFPAY ==
--- NOTE | 2023-01-18 11:10 | MHC.OFFVISWM ---
Intake VS Expanded 01/18/23 11:27 Height 5 ft 7.5 in Weight 293 lb BMI 45.2 Body Fat % 51.1 Body Fat Mass 149.6 Fat Free Mass 143.4 Visceral Fat Rating 17 Body Water % 34.9 Body Water Mass 102.2 Basal Metabolic Rate/Score 2,070 Intake Visit Reasons: TV [facility] BMI 45.2 Allergies atorvastatin Allergy (Unknown, Verified 01/18/23 11:10) chest pain Medication List - Last Reconciled 01/18/23 by Marin Beal MD albuterol sulfate 90 mcg/actuation (ProAir HFA) 2 puffs inhalation Q4-6H PRN 30 days budesonide-formoterol 160-4.5 mcg/actuation (Symbicort) 2 puffs inhalation BID 30 days bupropion HCl 300 mg PO QAM bupropion HCl 150 mg PO QAM cholecalciferol (vitamin D3) 50 mcg PO DAILY 90 days clonazepam 1/2 to 1 tablet orally once a day as needed for anxiety; 30 days fluoxetine 20 mg PO QAM 90 days loratadine 10 mg PO DAILY PRN 90 days metoprolol succinate ER 25 mg PO DAILY 90 days omeprazole 40 mg PO DAILY rosuvastatin 5 mg PO DAILY 90 days HPI TV [facility] BMI 45.2 HPI Details Start time: 11.07am, End time: 11.52am ?I spent 40 minutes speaking with the patient on the phone plus an additional 5 minutes reviewing and updating records for a total of 45 minutes HPI Comments History of Present Illness Details Previous weight loss efforts: low carb diet, [employer] protein shakes Wakes up: 6am, Sleeps: 11pm Breakfast: skips Lunch: 12-1pm (fast food) Dinner: 6pm (rice, meat, vegetables) Snacks: Donut occasionally at 10am, 2-3 times after dinner and even in the middle of the night (donuts, chips Exercise: none, has a treadmill Fluids: Coffee: 2 cups per day (sugar and cream), tea: none, soda: Coke regular (2 cans), juice: none, ETOH: a few times per year PFS Medical History (Updated 01/18/23 @ 11:18 by Marin Beal MD) Hyperlipidemia Hypertension Morbid obesity Elevated LFTs Morbid obesity with BMI of 40.0-44.9, adult Depression Anxiety Morbid obesity with BMI of 45.0-49.9, adult Hypoglycemia Recurrent urinary tract infection Smoker Insomnia Fatigue GERD without esophagitis Vitamin D deficiency Asthma Pure hypercholesterolemia Dizziness Surgical History History of use of contraceptive intrauterine device (IUD) Family History Father Hypertension Mother Diabetes Sister Cervical cancer Social History Housing: House Alcohol intake: current Alcohol intake frequency: holidays/special occasions only Patient Tobacco Use Status: Current everyday Tobacco user Tobacco use type: Cigarette Cigarettes Per Day: 4 e-Cigarette/Vaping Use: Never Used Second Hand Smoke Exposure: Yes service: No Current occupational status: employed Cognitive needs: No Hearing needs: No Vision needs: No Assessment & Plan Assessment & Plan (1) Heart palpitations: Code(s): R00.2 - Palpitations (2) GERD without esophagitis: Code(s): K21.9 - Gastro-esophageal reflux disease without esophagitis (3) Asthma: Code(s): J45.909 - Unspecified asthma, uncomplicated Qualifiers: Asthma severity: mild Asthma persistence: intermittent Asthma complication type: uncomplicated Qualified Code(s): J45.20 - Mild intermittent asthma, uncomplicated (4) Morbid obesity: Code(s): E66.01 - Morbid (severe) obesity due to excess calories Plan: 1.? Plan for lap sleeve gastrectomy. If diaphragmatic or ventral hernias are present at time of surgery, these will be repaired laparoscopically as well. Risks and complications were discussed in detail including possible conversion to an open procedure, anastomotic leak, bleeding requiring transfusion, small bowel obstruction, , DVT and pulmonary embolism, cardiac, or pulmonary complications, as custodial complications such as anastomotic ulcer, insufficient weight loss and vitamin deficiencies. I emphasized the importance of close follow-up, adherence to instructions and good communication. 2. Nutritional counseling. Start with 2 CELEBRATE REBUILD protein (buy at [facility]) shakes (ONE scoop EACH in 8oz low fat unsweetened almond milk each) at 7am-9am and 10am-12pm, 2 protein bars (CELEBRATE protein bars, buy at [facility]) at 1pm-3pm and 4pm-6pm, dinner at 7pm (10 forks of protein and 10 forks of salad/vegetables) AND one more protein bar after dinner at 9pm-11pm. So you do 2 protein shakes, 3 protein bars and one meal per day. Meal to include lean meat (beef, fish, pork, turkey, chicken), or [place] yogurt, or egg whites, or beans with a salad with olive oil and fruits (berries, pears, apples, kiwi). Avoid salt, breads, potatoes, rice, pasta, desserts. 3. Each shake would be drunk slowly, like coffee in a period of 2 hours. May add your coffee into your shakes, if flavors match. 4. Cut each bar in 4 pieces and eat each piece in 30min ?to make each bar last 2 hours. 5. I emphasized the importance of measuring accurately the food portion and measure it when serving the food in plate 6. The meal portions include 10 full-size forks of meat and 10 full-size forks of salad. You always eat the meat portion but you can replace up to 5 forks for salad/vegetables with rice, potatoes or pasta, or a fruit ?if you like. The less you do it the better weight loss will be. 7. One full-size fork is what it can be scooped on the fork without falling aside and not what can be bit with the fork. Use regular forks like those you find in a typical restaurant. 8.? Please send me weight measurements as soon as possible and then once a week. Always include your diet and exercise plan. 9. Start treadmill with an incline of 2.0 and speed of 3.0. Increase incline by 1 every 3 min to a max incline of 8.0, stay 3min at 8.0 and then return to 2.0 and repeat same steps until calorie goal is met. Goal is to burn 2000 calories per week on exercise, which means either 300 calories daily, or 400 calories 5 days per week, or 500 calories 4 days per week, or 650 calories 3 days per week. 10.?It is important of avoiding and for at least 18 months postoperatively and has been discussed at the infosession. 11. Goal is to lose at least 1.5-2lbs per week 12. Goal to lose 10% of your weight before surgery, which is about 29lbs. Ultimate weight goal: 264lbs before surgery 13. Please follow the diet plan exactly without any change. If you don't like something about the plan or you feel hungry you need to communicate with me so I can help you revise the plan. You should not change the plan yourself. (5) Hypertension: Code(s): I10 - Essential (primary) hypertension (6) Hyperlipidemia: Code(s): E78.5 - Hyperlipidemia, unspecified (7) Depression: Code(s): F32.9 - Major depressive disorder, single episode, unspecified Qualifiers: Depression Type: unspecified Qualified Code(s): F32.9 - Major depressive disorder, single episode, unspecified (8) Anxiety: Code(s): F41.9 - Anxiety disorder, unspecified Orders: Orders Insulin Today E66.01 - Morbid (severe) obesity due to excess calories, E78.5 - Hyperlipidemia, unspecified, I10 - Essential (primary) hypertension, J45.909 - Unspecified asthma, uncomplicated, K21.9 - Gastro-esophageal reflux disease without esophagitis, R00.2 - Palpitations Complete Blood Count Auto Diff Today E66.01 - Morbid (severe) obesity due to excess calories, E78.5 - Hyperlipidemia, unspecified, I10 - Essential (primary) hypertension, J45.909 - Unspecified asthma, uncomplicated, K21.9 - Gastro-esophageal reflux disease without esophagitis, R00.2 - Palpitations Vitamin B12 and Folate Today E66.01 - Morbid (severe) obesity due to excess calories, E78.5 - Hyperlipidemia, unspecified, I10 - Essential (primary) hypertension, J45.909 - Unspecified asthma, uncomplicated, K21.9 - Gastro-esophageal reflux disease without esophagitis, R00.2 - Palpitations Zinc Today E66.01 - Morbid (severe) obesity due to excess calories, E78.5 - Hyperlipidemia, unspecified, I10 - Essential (primary) hypertension, J45.909 - Unspecified asthma, uncomplicated, K21.9 - Gastro-esophageal reflux disease without esophagitis, R00.2 - Palpitations Vitamin A Today E66.01 - Morbid (severe) obesity due to excess calories, E78.5 - Hyperlipidemia, unspecified, I10 - Essential (primary) hypertension, J45.909 - Unspecified asthma, uncomplicated, K21.9 - Gastro-esophageal reflux disease without esophagitis, R00.2 - Palpitations C Reactive Protein Today E66.01 - Morbid (severe) obesity due to excess calories, E78.5 - Hyperlipidemia, unspecified, I10 - Essential (primary) hypertension, J45.909 - Unspecified asthma, uncomplicated, K21.9 - Gastro-esophageal reflux disease without esophagitis, R00.2 - Palpitations PTHI Today E66.01 - Morbid (severe) obesity due to excess calories, E78.5 - Hyperlipidemia, unspecified, I10 - Essential (primary) hypertension, J45.909 - Unspecified asthma, uncomplicated, K21.9 - Gastro-esophageal reflux disease without esophagitis, R00.2 - Palpitations TSH reflex Free T4 Today E66.01 - Morbid (severe) obesity due to excess calories, E78.5 - Hyperlipidemia, unspecified, I10 - Essential (primary) hypertension, J45.909 - Unspecified asthma, uncomplicated, K21.9 - Gastro-esophageal reflux disease without esophagitis, R00.2 - Palpitations H Pylori Breath Test Today E66.01 - Morbid (severe) obesity due to excess calories, E78.5 - Hyperlipidemia, unspecified, I10 - Essential (primary) hypertension, J45.909 - Unspecified asthma, uncomplicated, K21.9 - Gastro-esophageal reflux disease without esophagitis, R00.2 - Palpitations Vitamin D 25-OH Total Today E66.01 - Morbid (severe) obesity due to excess calories, E78.5 - Hyperlipidemia, unspecified, I10 - Essential (primary) hypertension, J45.909 - Unspecified asthma, uncomplicated, K21.9 - Gastro-esophageal reflux disease without esophagitis, R00.2 - Palpitations Hemoglobin A1c Today E66.01 - Morbid (severe) obesity due to excess calories, E78.5 - Hyperlipidemia, unspecified, I10 - Essential (primary) hypertension, J45.909 - Unspecified asthma, uncomplicated, K21.9 - Gastro-esophageal reflux disease without esophagitis, R00.2 - Palpitations XR chest 2V Today E66.01 - Morbid (severe) obesity due to excess calories, E78.5 - Hyperlipidemia, unspecified, I10 - Essential (primary) hypertension, J45.909 - Unspecified asthma, uncomplicated, K21.9 - Gastro-esophageal reflux disease without esophagitis, R00.2 - Palpitations ECG 12 lead EKG Today E66.01 - Morbid (severe) obesity due to excess calories, E78.5 - Hyperlipidemia, unspecified, I10 - Essential (primary) hypertension, J45.909 - Unspecified asthma, uncomplicated, K21.9 - Gastro-esophageal reflux disease without esophagitis, R00.2 - Palpitations FL upper GI w air Today E66.01 - Morbid (severe) obesity due to excess calories, E78.5 - Hyperlipidemia, unspecified, I10 - Essential (primary) hypertension, J45.909 - Unspecified asthma, uncomplicated, K21.9 - Gastro-esophageal reflux disease without esophagitis, R00.2 - Palpitations Lipid Panel Today E66.01 - Morbid (severe) obesity due to excess calories, E78.5 - Hyperlipidemia, unspecified, I10 - Essential (primary) hypertension, J45.909 - Unspecified asthma, uncomplicated, K21.9 - Gastro-esophageal reflux disease without esophagitis, R00.2 - Palpitations IRON PROFILE Today E66.01 - Morbid (severe) obesity due to excess calories, E78.5 - Hyperlipidemia, unspecified, I10 - Essential (primary) hypertension, J45.909 - Unspecified asthma, uncomplicated, K21.9 - Gastro-esophageal reflux disease without esophagitis, R00.2 - Palpitations Comprehensive Met. Panel Today E66.01 - Morbid (severe) obesity due to excess calories, E78.5 - Hyperlipidemia, unspecified, I10 - Essential (primary) hypertension, J45.909 - Unspecified asthma, uncomplicated, K21.9 - Gastro-esophageal reflux disease without esophagitis, R00.2 - Palpitations Vitamin B1 Today E66.01 - Morbid (severe) obesity due to excess calories, E78.5 - Hyperlipidemia, unspecified, I10 - Essential (primary) hypertension, J45.909 - Unspecified asthma, uncomplicated, K21.9 - Gastro-esophageal reflux disease without esophagitis, R00.2 - Palpitations Ferritin Today E66.01 - Morbid (severe) obesity due to excess calories, E78.5 - Hyperlipidemia, unspecified, I10 - Essential (primary) hypertension, J45.909 - Unspecified asthma, uncomplicated, K21.9 - Gastro-esophageal reflux disease without esophagitis, R00.2 - Palpitations US abdomen comp w elastography Today E66.01 - Morbid (severe) obesity due to excess calories, E78.5 - Hyperlipidemia, unspecified, I10 - Essential (primary) hypertension, J45.909 - Unspecified asthma, uncomplicated, K21.9 - Gastro-esophageal reflux disease without esophagitis, R00.2 - Palpitations Referrals Nutrition/Dietitian Referral E66.01 - Morbid (severe) obesity due to excess calories, E78.5 - Hyperlipidemia, unspecified, I10 - Essential (primary) hypertension, J45.909 - Unspecified asthma, uncomplicated, K21.9 - Gastro-esophageal reflux disease without esophagitis, R00.2 - Palpitations Behavioral Health Referral E66.01 - Morbid (severe) obesity due to excess calories, E78.5 - Hyperlipidemia, unspecified, I10 - Essential (primary) hypertension, J45.909 - Unspecified asthma, uncomplicated, K21.9 - Gastro-esophageal reflux disease without esophagitis, R00.2 - Palpitations Telehealth Telehealth Location of provider rendering services: practice address Location of patient: address on file Patient Identification confirmed using: Name, : Yes Telehealth method: voice only Patient verbally consented to treatment: Yes Patient verbally consented to billing insurance company: Yes Patient informed of any privacy concerns related to visit: Yes Minutes spent on Phone/Video with Pt.: 45 Coding Level of Care Code Tele [facility] Pt Level 4 (17153) Diagnoses Heart palpitations R00.2 GERD without esophagitis K21.9 Mild intermittent asthma without complication J45.20 Asthma severity: mild Asthma persistence: intermittent Asthma complication type: uncomplicated Morbid obesity E66.01 Hypertension I10 Hyperlipidemia E78.5 Depression, unspecified depression type F32.9 Depression Type: unspecified Anxiety F41.9 Time Spent (min) 45
[2023-01-18 11:27] VITALS: BMI 45.2
== END 2023-01-18 11:53 | disposition home or self-care (01) ==
PROVIDERS: PCP Internal Medicine; Visit Provider Surgery
DX: E66.01 Morbid (severe) obesity due to excess calories (principal); Z68.42 Body mass index [BMI] 45.0-49.9, adult; R00.2 Palpitations; K21.9 Gastro-esophageal reflux disease without esophagitis
CPT/HCPCS: 99443

== ENCOUNTER → 2023-01-18 08:14 | Outpatient (BNVA) | payer OTHER, MEDICAID, SELFPAY | PROVIDERS: PCP Internal Medicine; Visit Provider Surgery ==

== ENCOUNTER → 2023-02-20 10:36 | Outpatient (REF) | payer OTHER, MEDICAID, SELFPAY ==
--- NOTE | 2023-02-20 10:50 | HM_ITS ---
* Total monitoring time 4 days. * Underlying rhythm is sinus with an average rate of 87/Min. Range 50 to 135/Min. * About 20% the time, rate > 100/Min- Sinus tachycardia. * Rare supraventricular and ventricular ectopy. * No significant pauses or AV blocks. * No patient markers or events in diary. MTDD
[2023-02-20 11:04] LABS: MANUAL DIFF FLAG NO
[2023-02-20 13:03] LABS: Basophils Absolute Auto 0.1 X10*3/uL (0.0-0.2); Basophils Percent Auto 1.1 % (0-2); Eosinophils Absolute Auto 0.4 X10*3/uL (0.0-0.4); Eosinophils Percent Auto 5.6 % (0-4); Hematocrit 41.2 % (37.0-47.0); Hemoglobin 12.8 g/dl (12.0-16.0); Imm Gran Abs Auto 0.01 X10*3/uL (0.00-0.03); Imm Gran Pct Auto 0.1 % (0.0-0.4); Lymphocytes Absolute Auto 2.2 X10*3/uL (1.2-4.9); Mean Corpuscular HGB Conc 31.1 g/dl (31.0-35.0); Mean Corpuscular Hemoglobin 25.9 pg (27.0-33.0); Mean Corpuscular Volume 83.2 fL (80.0-98.0); Monocytes Absolute Auto 0.7 X10*3/uL (0.1-1.2); Monocytes Percent Auto 9.9 % (2-11); Neutrophils Absolute Auto 3.8 x10*3/uL (2.0-8.3); Neutrophils Percent Auto 52.3 % (45-73); Platelet Count 268 X10*3/uL (160-400); Red Blood Count 4.95 X10*6/uL (4.20-5.50); Red Cell Distribution Width 16.4 % (11.0-16.0); White Blood Count 7.2 X10*3/uL (4.8-10.8)
[2023-02-20 13:40] LABS: Erythrocyte Sedimentation Rate 8 MM/HR (0-20)
[2023-02-20 13:45] LABS: Appearance Urine Turbid; Color Urine Yellow; Glucose Urine UA Negative (Negative); Leukocyte Esterase Urine Small (1+) (Negative); Nitrite Urine Negative (Negative); PH 5.5 (5.0-9.0); Specific Gravity - Urine >= 1.030 (1.005-1.025); UMIC TRIGGER UACC YES; Urine Blood Negative (Negative); Urine Ketones Negative (Negative); Urine Protein Trace mg/dL (Neg-Trace)
[2023-02-20 13:55] LABS: Alanine Aminotransferase 50 U/L (0-31); Albumin Level 4.4 g/dL (3.5-5.0); Alkaline Phosphatase 64 U/L (39-117); Anion Gap 13 (12-20); Aspartate Amino Transferase 45 U/L (5-31); Bilirubin Total 0.4 mg/dL (0.0-1.0); Blood Urea Nitrogen 13 mg/dL (9-16); C Reactive Protein 0.78 mg/dL (< or = 0.50); Calcium 9.3 mg/dL (8.4-10.2); Carbon Dioxide 23 mmol/L (22-29); Chloride 106 mmol/L (96-108); Cholesterol 186 mg/dL (<200); Estimated Glomerular Filt Rate > 60; Glucose Fasting 103 mg/dL (60-99); Glucose Random 102 mg/dL (60-115); HDL Cholesterol 54 mg/dL (>40); LDL Cholesterol Calculated 118 mg/dL (<100); Magnesium 2.1 mg/dL (1.6-2.6); Potassium 4.1 mmol/L (3.3-5.1); Sodium 138 mmol/L (135-145); Total Protein 7.5 g/dL (6.5-8.0); Triglycerides 73 mg/dL (<150)
[2023-02-20 14:10] LABS: Bacteria Urine 4+ (None Seen); Squamous Epithelial Cell Urine >20 /HPF (0-2); UACC Culture Trigger YES
[2023-02-20 14:16] LABS: TSH reflex Free T4 1.27 uIU/mL (0.32-4.0); Vitamin D 25-OH Total 23.4 ng/mL (>30)
== END ==
LOC: HO.CARD 10:36
PROVIDERS: Visit Provider Internal Medicine
DX: R00.2 Palpitations (principal); E55.9 Vitamin D deficiency, unspecified; I10 Essential (primary) hypertension; M25.511 Pain in right shoulder; M79.7 Fibromyalgia; E78.00 Pure hypercholesterolemia, unspecified; R82.90 Unspecified abnormal findings in urine
CPT/HCPCS: 36415; 80053; 80061; 81001; 82306; 83735; 84443; 85025; 85652; 86140; 87086; 93242

== ENCOUNTER → 2023-02-20 10:50 | Outpatient (BNV) | payer OTHER, MEDICAID, SELFPAY | PROVIDERS: Visit Provider Internal Medicine | DX: I47.10 Supraventricular tachycardia, unspecified (principal) | CPT/HCPCS: 93244 ==

== ENCOUNTER 2023-03-01 15:48 | Outpatient (AMB) | payer OTHER, MEDICAID, SELFPAY ==
--- NOTE | 2023-03-01 15:58 | MHC.PC.OV ---
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 Accompanied by: Self / Same As Patient Allergies atorvastatin Allergy (Unknown, Verified 03/01/23 16:30) chest pain Medication List - Last Reconciled 03/01/23 by Jermaine Waldron MD albuterol sulfate 90 mcg/actuation (ProAir HFA) 2 puffs inhalation Q4-6H PRN 30 days budesonide-formoterol 160-4.5 mcg/actuation (Symbicort) 2 puffs inhalation BID 30 days bupropion HCl 300 mg PO QAM bupropion HCl 150 mg PO QAM cholecalciferol (vitamin D3) 50 mcg PO DAILY 90 days clonazepam 1/2 to 1 tablet orally once a day as needed for anxiety; 30 days fluoxetine 20 mg PO QAM 90 days loratadine 10 mg PO DAILY PRN 90 days metoprolol succinate ER 25 mg PO DAILY 90 days omeprazole 40 mg PO DAILY rosuvastatin 5 mg PO DAILY 90 days Tobacco use date assessed: 12/27/22 Dental Screening Dental Screen Date: 03/01/23 Did you have a dental visit in the last 12 months?: Yes Did you have a dental problem in the last 6 months where you did not have access to dental care?: No Was dental information given to patient?: Patient has dentist HPI 6 month f/u HPI Details Patient comes in today for her follow up visit States that she feels okay She denies any headaches or dizziness Denies any chest pains, no shortness of breath No nausea/vomiting, no abdominal pain No change in bowel habits noted Had her follow-up labs done last week - to discuss her results States that she was seen by weight management recent - states that her original intent was to just see the medical weight management program but somehow ended up being seen by Dr. Beal and he has discussed the option of a sleeve gastrectomy with her and wanted her to schedule this as soon as possible States that she felt quite scared by what Dr. Beal explained to her and is leaning towards holding off on this and going back to just the medical side of weight management for now [facility] Medical History Hyperlipidemia Hypertension Morbid obesity Elevated LFTs Morbid obesity with BMI of 40.0-44.9, adult Depression Anxiety Morbid obesity with BMI of 45.0-49.9, adult Hypoglycemia Recurrent urinary tract infection Smoker Insomnia Fatigue GERD without esophagitis Vitamin D deficiency Asthma Pure hypercholesterolemia Dizziness Surgical History History of use of contraceptive intrauterine device (IUD) Family History Father Hypertension Mother Diabetes Sister Cervical cancer Social History Housing: House Alcohol intake: current Alcohol intake frequency: holidays/special occasions only Patient Tobacco Use Status: Current everyday Tobacco user Tobacco use type: Cigarette Cigarettes Per Day: 4 e-Cigarette/Vaping Use: Never Used Second Hand Smoke Exposure: Yes service: No Current occupational status: employed Cognitive needs: No Hearing needs: No Vision needs: No Questionnaire Thrive Questionnaire Date Thrive assessed: 12/27/22 CHARO-7 AMB Questionnaire CHARO-7 Date CHARO - 7 assessed: 12/27/22 Source: Developed by Drs. Froylan Marie, Kathy Hendrix, Jason Harper and colleagues, with an educational mani from [employer]. Review of Systems Const Denies chills, Reports fatigue, Denies fever(s) and Denies headache(s) ENT Denies dysphagia, Denies dizziness, Denies otalgia, Denies headache(s), Denies odynophagia and Denies sore throat Card Details: occasional palpitations Denies chest pain, Reports palpitations (occasional) and Denies dyspnea Resp Denies cough and Denies dyspnea GI Denies abdominal pain, Denies constipation, Denies dysphagia, Denies heartburn, Denies diarrhea, Denies nausea, Denies odynophagia and Denies vomiting Denies difficulty voiding, Denies nocturia and Denies dysuria Musc Denies arthralgias Skin/Breast Denies rash Neuro Denies dizziness and Denies headache(s) Psych Reports anxiety Endo Reports fatigue and Reports palpitations (occasional) Physical exam (Primary Care) Vital Signs: Last Vital Signs Pulse 81 03/01/23 15:59 BP 140/90 H 03/01/23 16:49 Pulse Ox 96 03/01/23 15:59 Oxygen Delivery Method Room Air 03/01/23 15:59 BMI result Body Mass Index 46.1 Tobacco/Smoking Status: Tobacco use Status Tobacco use date assessed 12/27/22 03/01/23 15:59 Patient Tobacco Use Status Current everyday Tobacco 03/01/23 15:59 Tobacco use type Cigarette 03/01/23 15:59 e-Cigarette/Vaping Use Never Used 03/01/23 15:59 Thrive Assessment: Date of Thrive Assessment Date Thrive assessed 12/27/22 03/01/23 15:59 Const General: no acute distress and alert HENMT Ears: TM's normal bilaterally and EAC's normal Throat: Yes posterior oropharynx normal and Yes tonsils normal (no TP congestion) Neck Neck: Yes no lymphadenopathy and Yes supple Thyroid: Thyroid normal Resp Auscultation: clear to auscultation bilaterally, no rales and no wheezes Cardio Rate: regular rate Rhythm: regular rhythm Heart sounds: no murmurs GI Palpation (GI): Soft to palpation and nontender Auscultation: normal bowel sounds Skin Rashes: no rashes Extrem General: Yes no clubbing, cyanosis or edema Results Reviewed Results Reviewed: Laboratory Tests 07/05/22 02/20/23 11:02 11:02 WBC 7.8 7.2 Hgb 12.8 12.8 Hct 41.5 41.2 Plt Count 250 268 ESR 8 Sodium 139 138 Potassium 4.5 4.1 Creatinine 0.75 0.80 Estimated GFR > 60 > 60 Random Glucose 86 Fasting Glucose 103 H Calcium 9.3 9.3 Magnesium 2.1 AST 32 H 45 H ALT 37 H 50 H C-Reactive Protein 0.78 H Triglycerides 73 Cholesterol 186 LDL Cholesterol, Calc 118 H HDL Cholesterol 54 Lipase 22 25-OH Vitamin D Total 23.4 L TSH 1.27 Urine pH 5.5 Ur Specific [place] >= 1.030 H Urine Protein Trace Urine Glucose (UA) Negative Urine Blood Negative Urine Nitrite Negative Ur Leukocyte Esterase Small (1+) H Assessment and Plan Assessment & Plan (1) Heart palpitations: Code(s): R00.2 - Palpitations Plan: Continue Metoprolol ER 25 mg QD for now Patient had an echocardiogram and 3-day Holter monitor done a few months ago that came out normal She was scheduled to see Cardiology at [facility] in February 2023 for further evaluation but she went out on her own and saw a licensed club manager in [place] a couple of months ago as she did not want to wait until February - was reportedly advised that she should try to get at least a 7 day Holter monitor to hopefully catch her arrhythmia when it occurs She just had her 7 day Holter monitoring done and turned in her monitor a few days ago - report is not yet available at this time Follow up with cardiology as scheduled (2) Fatigue: Code(s): R53.83 - Other fatigue Qualifiers: Fatigue type: unspecified Qualified Code(s): R53.83 - Other fatigue Plan: She was previously referred to Sleep Medicine for further evaluation and to help r/o KATINA but she has not yet been seen (3) Pure hypercholesterolemia: Code(s): E78.00 - Pure hypercholesterolemia, unspecified Plan: Results of her labs done last week reviewed and discussed with patient Reinforced low cholesterol diet Continue Rosuvastatin 5 mg QD Will recheck her labs and fasting lipids in 4 months for follow up (4) Asthma: Code(s): J45.909 - Unspecified asthma, uncomplicated Qualifiers: Asthma complication type: uncomplicated Asthma persistence: intermittent Asthma severity: mild Qualified Code(s): J45.20 - Mild intermittent asthma, uncomplicated Plan: Continue Symbicort 160-4.5 mcg 2 inhalations BID and Albuterol HFA 2 inhalations every 6 hours as needed (5) Elevated LFTs: Code(s): R79.89 - Other specified abnormal findings of blood chemistry Plan: Have advised patient that her LFTs are again elevated on her recent labs and is most likely due to her weight Will continue to monitor her LFTs regularly/closely (6) Anxiety: Code(s): F41.9 - Anxiety disorder, unspecified Plan: Continue Clonazepam 0.5 mg 1/2 to 1 tablet once a day as needed and Fluoxetine 20 mg QD She has been referred to psychiatry and also for counseling and therapy (7) Depression: Code(s): F32.9 - Major depressive disorder, single episode, unspecified Qualifiers: Depression Type: unspecified Qualified Code(s): F32.9 - Major depressive disorder, single episode, unspecified Plan: Continue Bupropion ER 450 mg once a day and Fluoxetine 20 mg QD She has been referred to psychiatry for further evaluation and management (8) Smoker: Code(s): F17.200 - Nicotine dependence, unspecified, uncomplicated Plan: Counseled again on smoking cessation (9) Morbid obesity with BMI of 45.0-49.9, adult: Code(s): E66.01 - Morbid (severe) obesity due to excess calories; Z68.42 - Body mass index [BMI] 45.0-49.9, adult Plan: Reinforced diet/exercise as tolerated/lose weight She was referred to Weight Management previously - was only interested in the medical side of weight management before but she somehow ended up being seen and considered for bariatric surgery Was seen via telehealth by Dr. Beal recently and recommended sleeve gastrectomy, which she feels anxious about at this time Have advised patient that she should speak again to weight management and let them know about her fears and concerns and as to whether she plans to proceed with gastric bypass surgery or not Plan Follow up in 4 months Orders: Orders Complete Blood Count Auto Diff 4 Months I10 - Essential (primary) hypertension Comprehensive Grant. Panel Fast 4 Months E78.00 - Pure hypercholesterolemia, unspecified UA CC w/rflx Micro + Cult 4 Months R30.0 - Dysuria Vitamin D 25-OH Total 4 Months E55.9 - Vitamin D deficiency, unspecified Lipid Panel 4 Months E78.00 - Pure hypercholesterolemia, unspecified TSH reflex Free T4 4 Months E78.00 - Pure hypercholesterolemia, unspecified Liver Fibrosis Pnl 4 Months R79.89 - Other specified abnormal findings of blood chemistry Coding Level of Care Code Est Pt Level 4 (38244) Diagnoses Heart palpitations R00.2 Fatigue, unspecified type R53.83 Fatigue type: unspecified Pure hypercholesterolemia E78.00 Mild intermittent asthma without complication J45.20 Asthma complication type: uncomplicated Asthma persistence: intermittent Asthma severity: mild Elevated LFTs R79.89 Anxiety F41.9 Depression, unspecified depression type F32.9 Depression Type: unspecified Smoker F17.200 Morbid obesity with BMI of 45.0-49.9, adult E66.01; Z68.42
[2023-03-01 15:59] VITALS: BP 140/88; PULSE 81; O2SAT 96; BMI 46.1
[2023-03-01 16:49] VITALS: BP 140/90
== END 2023-03-01 16:50 | disposition home or self-care (01) ==
PROVIDERS: PCP Internal Medicine; Visit Provider Internal Medicine
DX: R00.2 Palpitations (principal); R53.83 Other fatigue; Z68.42 Body mass index [BMI] 45.0-49.9, adult; E66.01 Morbid (severe) obesity due to excess calories; E78.00 Pure hypercholesterolemia, unspecified; J45.20 Mild intermittent asthma, uncomplicated; R79.89 Other specified abnormal findings of blood chemistry; F41.9 Anxiety disorder, unspecified; F32.9 Major depressive disorder, single episode, unspecified; F17.200 Nicotine dependence, unspecified, uncomplicated
CPT/HCPCS: 99214

== ENCOUNTER 2023-06-25 12:55 | Outpatient (AMB) | payer OTHER, MEDICAID, SELFPAY ==
[2023-06-25 13:08] VITALS: BP 126/80; PULSE 73; BMI 45.9
--- NOTE | 2023-06-25 13:08 | A.OFFVIS_ITS ---
Vital Signs 06/25/23 13:08 Height 5 ft 7.5 in Weight 297 lb 9.985 oz BMI 45.9 BP 126/80 Blood Pressure Location Lt brachial Position Sitting Pulse 73 Intake Visit Reasons: new patient dx palpitations Content Producer Required: No Accompanied by: Self / Same As Patient Allergies atorvastatin Allergy (Unknown, Verified 03/01/23 16:30) chest pain Medication List - Last Reconciled 06/25/23 by Shravan Bolton MD albuterol sulfate 90 mcg/actuation (ProAir HFA) 2 puffs inhalation Q4-6H PRN 30 days budesonide-formoterol 160-4.5 mcg/actuation (Symbicort) 2 puffs inhalation BID 30 days bupropion HCl XL 150 mg PO QAM bupropion HCl XL 300 mg PO QAM clonazepam 1/2 to 1 tablet orally once a day as needed for anxiety; 30 days fluoxetine 20 mg PO QAM 90 days loratadine 10 mg PO DAILY PRN 90 days metoprolol succinate ER 25 mg PO DAILY 90 days omeprazole 40 mg PO DAILY HPI Comments Details: Kimberly is here for consultation regarding palpitations. She has been having palpitations for quite some time. She states that she used to weigh only around 180 lb or so but over time has gained almost 100 lb or so. Her palpitations are more frequent some days but not otherwise. She has had numerous Holter but essentially unremarkable apart from some sinus tachycardia. Rare ectopy. No other cardiac complaints. No known coronary disease or myocardial infarction or cardiomyopathy. [facility] Medical History Hyperlipidemia Hypertension Morbid obesity Elevated LFTs Morbid obesity with BMI of 40.0-44.9, adult Depression Anxiety Morbid obesity with BMI of 45.0-49.9, adult Hypoglycemia Recurrent urinary tract infection Smoker Insomnia Fatigue GERD without esophagitis Vitamin D deficiency Asthma Pure hypercholesterolemia Dizziness Surgical History History of use of contraceptive intrauterine device (IUD) Family History Father Hypertension Mother Diabetes Sister Cervical cancer Social History Housing: House Alcohol intake: current Alcohol intake frequency: holidays/special occasions only Patient Tobacco Use Status: Current everyday Tobacco user Tobacco use type: Cigarette Cigarettes Per Day: 4 e-Cigarette/Vaping Use: Never Used Second Hand Smoke Exposure: Yes service: No Current occupational status: employed Cognitive needs: No Hearing needs: No Vision needs: No Review of Systems Const Denies chills, Denies fatigue, Denies fever(s), Denies frequent falls, Denies weakness, Denies weight gain and Denies weight loss ENT Denies dizziness Card Denies chest pain, Denies leg edema, Denies lightheadedness, Denies palpitations, Denies dyspnea, Denies dyspnea on exertion and Denies orthopnea Resp Denies cough, Denies dyspnea and Denies dyspnea on exertion GI Denies bloating and Denies change in bowel habits Musc Denies muscle weakness, Denies numbness and Denies tingling Neuro Denies dizziness, Denies frequent falls, Denies numbness, Denies tingling and Denies weakness Endo Denies fatigue and Denies palpitations Physical Exam Vital Signs: Last Vital Signs Pulse 73 06/25/23 13:08 BP 126/80 06/25/23 13:08 BMI result Body Mass Index 45.9 Const General: comfortable and no acute distress Orientation/consciousness: patient oriented x3 HEENT Other: Unremarkable Head: Yes normal to inspection Neck Neck: Yes normal visual inspection Chest Chest palpation & inspection: normal inspection of the chest Resp Auscultation: clear to auscultation bilaterally Cardio Palpation: normal PMI Heart sounds: S1 normal heart sound present, S2 normal heart sound present, no gallops, no murmurs and no rubs GI Palpation (GI): Soft to palpation Back/Spine/Pelvis Other: unremarkable Skin General skin exam: no rashes or lesions noted Neuro General: patient oriented x3 Extrem General: Yes normal to inspection Psych Mental Status: mental status grossly normal Office Procedures EKG Details: EKG with sinus rhythm at 73/Min; no significant ST-T changes and otherwise unremarkable. [place]. [id number], Complete Assessment & Plan Assessment & Plan (1) Intermittent palpitations: Code(s): R00.2 - Palpitations Category: Medical (2) PVC (premature ventricular contraction): Code(s): I49.3 - Ventricular premature depolarization Category: Medical Plan Echocardiogram with normal LVEF, 60-65% and otherwise unremarkable. She has had numerous Holter monitors. Essentially, underlying sinus rhythm with rare ectopy. Some sinus tachycardia. Also reviewed tracing from her phone during palpitations and that shows isolated PVCs. Symptoms could be related to the PVCs. Overall, main issue seems to be obesity. Strongly advised to lose that and palpitations should improve. She also has obstructive sleep apnea and that also contributes palpitations. Otherwise, PCP had given her beta-blockers to try. If palpitations too bothersome, may take as needed. Otherwise, they would likely improve once she started losing weight. Coding Level of Care Code New Pt Level 3 (70754) Diagnoses Intermittent palpitations R00.2 PVC (premature ventricular contraction) I49.3 CPT Codes EKG - CPT: [id number], Complete ([id number])
== END 2023-06-25 13:34 | disposition home or self-care (01) ==
PROVIDERS: PCP Internal Medicine; Visit Provider Internal Medicine
DX: R00.2 Palpitations (principal); I49.3 Ventricular premature depolarization
CPT/HCPCS: 93010; 99213

== ENCOUNTER → 2023-06-25 12:55 | Outpatient (BNVA) | payer OTHER, MEDICAID, SELFPAY | PROVIDERS: PCP Internal Medicine; Visit Provider Internal Medicine | DX: R00.2 Palpitations (principal); I49.3 Ventricular premature depolarization | CPT/HCPCS: 93005 ==

== ENCOUNTER 2023-07-05 16:00 | Outpatient (AMB) | payer OTHER, MEDICAID, SELFPAY ==
--- NOTE | 2023-07-05 16:01 | A.OFFPC_ITS ---
Vital Signs 07/05/23 16:03 Height 5 ft 7.5 in Weight 292 lb 2 oz BMI 45.1 BP 122/72 Blood Pressure Location Lt brachial Position Sitting Pulse 85 Pulse Source Pulse Oximeter Pulse Oximetry (%) 98 Oxygen Delivery Method Room Air Intake Visit Reasons: 4M follow up Intake Note: Patient is here to follow up on HTN, HLD, Asthma. Registered Respiratory Therapist Required: No Hvac Technician Residential: Present Accompanied by: Daughter Allergies atorvastatin Allergy (Unknown, Verified 07/05/23 16:26) chest pain Medication List - Last Reconciled 07/05/23 by Jermaine Waldron MD albuterol sulfate 90 mcg/actuation (ProAir HFA) 2 puffs inhalation Q4-6H PRN 30 days budesonide-formoterol 160-4.5 mcg/actuation (Symbicort) 2 puffs inhalation BID 30 days bupropion HCl XL 300 mg PO QAM bupropion HCl XL 150 mg PO QAM clonazepam 1/2 to 1 tablet orally once a day as needed for anxiety; 30 days fluoxetine 20 mg PO QAM 90 days loratadine 10 mg PO DAILY PRN 90 days metoprolol succinate ER 25 mg PO DAILY 90 days omeprazole 40 mg PO DAILY Tobacco use date assessed: 07/05/23 Dental Screening Dental Screen Date: 07/05/23 Did you have a dental visit in the last 12 months?: No Did you have a dental problem in the last 6 months where you did not have access to dental care?: No Was dental information given to patient?: No HPI 4M follow up HPI Details Patient comes in today for his follow up visit States that was able to lose some weight (about 5 pounds) on her own in the past month or so Was seen at the weight management clinic a few weeks ago but she is very scared about going for bariatric surgery to help her lose weight Adds that she stopped taking her Rosuvastatin about a month ago - states that she became very concerned after reading the potential side effects associated with the Rx, including the risk for liver problems, myalgia and possible dementia risks for those taking statins She continues to feel fatigued and short-winded constantly and states that she can hardly do anything lately as she gets tired easily States that she can also hardly walk or do any exercises as she gets SOB even with just minimal exertion She denies any headaches or dizziness Denies any exertional chest pains She was seen by cardiology for follow up last week and advised that her recent cardiac work ups were all mostly normal for her palpitations and that she can just take her Metoprolol ER as needed if she wants to help control her palpitations better She recalls taking Propranolol in the past and is wondering if she can be prescribed Propranolol instead of Metoprolol ER as she is concerned about how Metoprolol ER can affect her (again) after reading the potential side effects of Metoprolol ER No nausea/vomiting but relates that her stomach feels bloated sometimes as she continues to struggle with constipation Recalls that she used to take a combination of Senna and Colace (Senokot) that used to work well for her and would like to try being prescribed this She needs several of her Rx refilled today Was not able to get her follow up labs done prior to her visit today [facility] Medical History (Updated 07/07/23 @ 06:33 by Jermaine Waldron MD) Constipation Hyperlipidemia Hypertension Morbid obesity Elevated LFTs Morbid obesity with BMI of 40.0-44.9, adult Depression Anxiety Morbid obesity with BMI of 45.0-49.9, adult Hypoglycemia Recurrent urinary tract infection Smoker Insomnia Fatigue GERD without esophagitis Vitamin D deficiency Asthma Pure hypercholesterolemia Dizziness Surgical History History of use of contraceptive intrauterine device (IUD) Family History Father Hypertension Mother Diabetes Sister Cervical cancer Social History Housing: House Alcohol intake: current Alcohol intake frequency: holidays/special occasions only Patient Tobacco Use Status: Current everyday Tobacco user Tobacco use type: Cigarette Cigarette Packs Per Day: 0.25 Cigarettes Per Day: 5 e-Cigarette/Vaping Use: Never Used Second Hand Smoke Exposure: Yes service: No Current occupational status: employed Cognitive needs: No Hearing needs: No Vision needs: No Questionnaire PHQ-9 Over the last 2 weeks, how often have you been bothered by any of the following problems? 1. Little interest or pleasure in doing things: nearly every day 2. Feeling down, depressed, or hopeless: several days 3. Trouble falling or staying asleep, or sleeping too much: nearly every day 4. Feeling tired or having little energy: nearly every day 5. Poor appetite or overeating: several days 6. Feeling bad about yourself - or that you are a failure or have let yourself or your family down: not at all 7. Trouble concentrating on things, such as reading the newspaper or watching television: several days 8. Moving or speaking so slowly that other people could have noticed. Or the opposite - being so fidgety or restless that you have been moving around a lot more than usual: not at all 9. Thoughts that you would be better off or of hurting yourself in some way: not at all Total score: 12 Depression Screening Interpretation: Positive Depression Screening Follow-up: Existing condition and In treatment Depression Screening Done: Yes 80344 - PHQ-9 Billing: Yes Source: Developed by Drs. Froylan Marie, Kathy Hendrix, Jason Harper and colleagues, with an educational mani from [employer]. Thrive Questionnaire Date Thrive assessed: 07/05/23 I am a: Patient What is your living situation today?: I have a steady place to live Within the past 12 months, did the food you bought not last and you didn't have the money to get more?: Never true Within the past 12 months, did you worry whether your food would run out before you got money to buy more?: Never true Do you have trouble paying for medicines?: No Do you have trouble getting transportation to medical appointments?: No Do you have trouble paying your heating and electricity bill?: No Do you have trouble taking care of your child, family member or friend?: No Do you have trouble with day-to-day activities such as bathing, preparing meals, shopping, managing finances, etc.?: No Are you currently unemployed and looking for a job?: No Are you interested in more education?: No Currently or been in a relationship where the following occur: no concerns reported THRIVE Score: 0 AUDIT C Alcohol Use Questionnaire (AUDIT-C) 1. How often do you have a drink containing alcohol?: Never 3. How often do you have six or more drinks on one occasion?: Never Total Score: 0 Score Reviewed/Action Taken: Yes CHARO-7 AMB Questionnaire CHARO-7 Date CHARO - 7 assessed: 07/05/23 Feeling nervous, anxious, or on edge: 3 = Nearly every day Not being able to stop or control worryin = Several days Worrying too much about different things: 1 = Several days Trouble relaxin = Several days Being so restless that it is hard to sit still: 0 = Not at all Becoming easily annoyed or irritable: 3 = Nearly every day Feeling afraid as if something awful might happen: 1 = Several days Total CHARO-7 score (0-4 normal; 5-9 mild; 10-14 moderate; 15-21 severe): 10 Source: Developed by Drs. Froylan Marie, Kathy Hendrix, Jason Harper and colleagues, with an educational mani from [employer]. Review of Systems Const Denies chills, Reports fatigue, Denies fever(s) and Denies headache(s) ENT Denies dysphagia, Denies dizziness, Denies otalgia, Denies headache(s), Denies odynophagia and Denies sore throat Card Details: occasional palpitations Denies chest pain, Reports palpitations (occasionally) and Reports dyspnea on exertion Resp Denies cough and Reports dyspnea on exertion GI Denies abdominal pain, Reports constipation, Denies dysphagia, Denies heartburn, Denies diarrhea, Denies nausea, Denies odynophagia and Denies vomiting Denies difficulty voiding, Denies nocturia, Denies dysuria and Denies urinary urgency Musc Reports back pain (on and off) and Denies arthralgias Skin/Breast Denies rash Neuro Denies dizziness and Denies headache(s) Psych Reports anxiety Endo Reports fatigue and Reports palpitations (occasionally) Physical exam (Primary Care) Vital Signs: Last Vital Signs Pulse 85 07/05/23 16:03 BP 122/72 07/05/23 16:03 Pulse Ox 98 07/05/23 16:03 Oxygen Delivery Method Room Air 07/05/23 16:03 BMI result Body Mass Index 45.1 Tobacco/Smoking Status: Tobacco use Status Tobacco use date assessed 07/05/23 07/05/23 16:05 Patient Tobacco Use Status Current everyday Tobacco 07/05/23 16:05 Tobacco use type Cigarette 07/05/23 16:05 e-Cigarette/Vaping Use Never Used 07/05/23 16:05 PHQ-9: PHQ-9 Score PHQ-9: Total score 12 07/05/23 16:27 Depression Screening Interpretation: Positive Depression Screening Follow-up: Existing condition and In treatment Thrive Assessment: Date of Thrive Assessment Date Thrive assessed 07/05/23 07/05/23 16:05 Currently or been in a relationship where the following occur: no concerns reported Const General: no acute distress and alert Nutritional Appearance: obese morbidly obese HENMT Ears: TM's normal bilaterally and EAC's normal Throat: Yes posterior oropharynx normal and Yes tonsils normal (no TP congestion) Neck Neck: Yes no lymphadenopathy and Yes supple Thyroid: Thyroid normal Resp Auscultation: clear to auscultation bilaterally, no rales and no wheezes Cardio Rate: regular rate Rhythm: regular rhythm Heart sounds: no murmurs GI Palpation (GI): Soft to palpation and nontender Auscultation: normal bowel sounds General: Yes no CVA tenderness Back/Spine/Pelvis Back: no CVA tenderness Thoracic/Lumbar Spine: No lumbar spinal tenderness Skin Rashes: no rashes Extrem General: Yes no clubbing, cyanosis or edema Assessment and Plan Assessment & Plan (1) Heart palpitations: Code(s): R00.2 - Palpitations Plan: Continue Metoprolol ER 25 mg QD Have discussed with patient that with her asthma, Metoprolol ER is a better option for her than Propranolol as Metoprolol is a more cardioselective beta carissa compared to Propranolol and should have very little impact on her asthma compared to Propranolol Patient had cardiac work ups done recently, including echocardiogram, 3-day Holter monitor and 7 day Holter monitor, all of which came back normal She was scheduled to see Cardiology at [facility] in February 2023 for further evaluation but she went out on her own and saw a industrial service technician in [place] a couple of months ago as she did not want to wait until February - was reportedly advised that she should try to get at least a 7 day Holter monitor to hopefully catch her arrhythmia when it occurs She was eventually seen by cardiology here at [facility] and was advised that all of her tests came out okay Was advised to continue Metoprolol ER (can take PRN) for symptomatic control/relief and reminded that losing weight can help alleviate or address her symptoms as well (2) Fatigue: Code(s): R53.83 - Other fatigue Qualifiers: Fatigue type: unspecified Qualified Code(s): R53.83 - Other fatigue Plan: She was previously referred to Sleep Medicine for further evaluation and to help r/o KATINA but it looks like she was never scheduled for an appointment Have offered to redo her referral but patient requested to hold off on this for now (3) Pure hypercholesterolemia: Code(s): E78.00 - Pure hypercholesterolemia, unspecified Plan: She was not able to get her follow up labs done prior to her visit today To make matters worse, she also stopped taking her Rx (Rosuvastatin 5 mg) a month ago, as she supposedly got very worried about the medication after reading all of the potential side effects associated with the Rx Have advised her to try getting her follow up labs done MARIELENA to see how her cholesterol numbers are currently since she has been off her Rx Reinforced low cholesterol diet Will recheck her labs and fasting lipids again in 4 months for follow up (4) Asthma: Code(s): J45.909 - Unspecified asthma, uncomplicated Qualifiers: Asthma severity: mild Asthma persistence: intermittent Asthma complication type: uncomplicated Qualified Code(s): J45.20 - Mild intermittent asthma, uncomplicated Plan: Continue Symbicort 160-4.5 mcg 2 inhalations BID and Albuterol HFA 2 inhalations every 6 hours as needed (5) Vitamin D deficiency: Code(s): E55.9 - Vitamin D deficiency, unspecified Plan: Will start her on Vitamin D3 2000 units QD Patient states that she does not recall ever being prescribed Vitamin D supplements in the past - advised that as this is available OTC, it is likely that her insurance did not cover the Rx (6) Elevated LFTs: Code(s): R79.89 - Other specified abnormal findings of blood chemistry Plan: Have reminded patient that her LFTs were elevated on her previous labs (most likely due to her weight) and she should get her follow up labs done MARIELENA Will continue to monitor her LFTs regularly/closely (7) Constipation: Code(s): K59.00 - Constipation, unspecified Qualifiers: Constipation type: unspecified constipation type Qualified Code(s): K59.00 - Constipation, unspecified Plan: Reinforced increased oral fluids and dietary fiber Per request, will start her on Senokot-S Q HS PRN (8) Anxiety: Code(s): F41.9 - Anxiety disorder, unspecified Plan: Continue Clonazepam 0.5 mg 1/2 to 1 tablet once a day as needed and Fluoxetine 20 mg QD She has been referred to psychiatry and also for counseling and therapy (9) Depression: Code(s): F32.9 - Major depressive disorder, single episode, unspecified Qualifiers: Depression Type: unspecified Qualified Code(s): F32.9 - Major depressive disorder, single episode, unspecified Plan: Continue Bupropion ER 450 mg once a day and Fluoxetine 20 mg QD She has been referred to psychiatry for further evaluation and management (10) Smoker: Code(s): F17.200 - Nicotine dependence, unspecified, uncomplicated Plan: Counseled again on smoking cessation (11) Morbid obesity with BMI of 45.0-49.9, adult: Code(s): E66.01 - Morbid (severe) obesity due to excess calories; Z68.42 - Body mass index [BMI] 45.0-49.9, adult Plan: Reinforced diet/exercise as tolerated/lose weight She was referred to Weight Management previously - was only interested in the medical side of weight management before but she somehow ended up being seen and considered for bariatric surgery Was seen via telehealth by Dr. Beal recently and recommended sleeve gastrectomy, which she continues to feel anxious about She has since been able to lose 5 pounds in the past month and expressed interest in continuing with her current attempts to lose weight on her own for now Plan Follow up in 4 months Orders: Orders UA CC w/rflx Micro + Cult 4 Months R30.0 - Dysuria Vitamin D 25-OH Total 4 Months E55.9 - Vitamin D deficiency, unspecified Comprehensive [place]. Panel Fast 4 Months E78.00 - Pure hypercholesterolemia, unspecified Lipid Panel 4 Months E78.00 - Pure hypercholesterolemia, unspecified Complete Blood Count Auto Diff 4 Months D64.9 - Anemia, unspecified TSH reflex Free T4 4 Months E78.00 - Pure hypercholesterolemia, unspecified Medications: New cholecalciferol (vitamin D3) 50 mcg PO DAILY 90 days 90 caps 3RF E55.9 - Vitamin D deficiency, unspecified sennosides-docusate sodium 8.6-50 mg (Senokot-S) 1 tab-cap PO BEDTIME 90 days 90 tabs 1RF Refilled clonazepam 1/2 to 1 tablet orally once a day as needed for anxiety; 30 days 30 tabs 0RF anxiety bupropion HCl XL 150 mg PO QAM 90 tabs 1RF loratadine 10 mg PO DAILY 90 days PRN 90 tabs 3RF allergy symptoms metoprolol succinate ER 25 mg PO DAILY 90 days 90 tabs 1RF omeprazole 40 mg PO DAILY 90 caps 1RF Coding Level of Care Code Est Pt Level 4 (03318) Diagnoses Heart palpitations R00.2 Fatigue, unspecified type R53.83 Fatigue type: unspecified Pure hypercholesterolemia E78.00 Mild intermittent asthma without complication J45.20 Asthma severity: mild Asthma persistence: intermittent Asthma complication type: uncomplicated Vitamin D deficiency E55.9 Elevated LFTs R79.89 Constipation, unspecified constipation type K59.00 Constipation type: unspecified constipation type Anxiety F41.9 Depression, unspecified depression type F32.9 Depression Type: unspecified Smoker F17.200 Morbid obesity with BMI of 45.0-49.9, adult E66.01; Z68.42
[2023-07-05 16:03] VITALS: BP 122/72; PULSE 85; O2SAT 98; BMI 45.1
== END 2023-07-05 16:43 | disposition home or self-care (01) ==
PROVIDERS: PCP Internal Medicine; Visit Provider Internal Medicine
DX: R00.2 Palpitations (principal); R53.83 Other fatigue; E78.00 Pure hypercholesterolemia, unspecified; J45.20 Mild intermittent asthma, uncomplicated; E55.9 Vitamin D deficiency, unspecified; R79.89 Other specified abnormal findings of blood chemistry; K59.00 Constipation, unspecified; F41.9 Anxiety disorder, unspecified; F32.9 Major depressive disorder, single episode, unspecified; F17.200 Nicotine dependence, unspecified, uncomplicated
CPT/HCPCS: 99214

== ENCOUNTER 2023-07-11 09:42 | Outpatient (REF) | payer OTHER, MEDICAID, SELFPAY ==
[2023-07-11 13:26] LABS: Appearance Urine Cloudy; Color Urine Yellow; Glucose Urine UA Negative (Negative); Leukocyte Esterase Urine Moderate (2+) (Negative); Nitrite Urine Negative (Negative); PH 6.5 (5.0-9.0); UMIC TRIGGER UACC YES; Urine Blood Negative (Negative); Urine Ketones Negative (Negative); Urine Protein Trace mg/dL (Neg-Trace)
[2023-07-11 13:40] LABS: MANUAL DIFF FLAG NO
[2023-07-11 13:46] LABS: Bacteria Urine 3+ (None Seen); Hyaline Casts Urine 0-2 /LPF (0-2); RBC Urine 0-2 /HPF (0-2); UACC Culture Trigger YES
[2023-07-11 13:49] LABS: Basophils Absolute Auto 0.1 X10*3/uL (0.0-0.2); Basophils Percent Auto 1.2 % (0-2); Eosinophils Absolute Auto 0.4 X10*3/uL (0.0-0.4); Eosinophils Percent Auto 5.1 % (0-4); Hematocrit 38.9 % (37.0-47.0); Hemoglobin 12.5 g/dl (12.0-16.0); Imm Gran Abs Auto 0.01 X10*3/uL (0.00-0.03); Imm Gran Pct Auto 0.1 % (0.0-0.4); Lymphocytes Absolute Auto 2.6 X10*3/uL (1.2-4.9); Lymphocytes Percent Auto 37.5 % (20-40); Mean Corpuscular HGB Conc 32.1 g/dl (31.0-35.0); Mean Corpuscular Hemoglobin 26.3 pg (27.0-33.0); Mean Corpuscular Volume 81.9 fL (80.0-98.0); Mean Platelet Volume 11.9 fL (9.4-12.3); Monocytes Absolute Auto 0.6 X10*3/uL (0.1-1.2); Monocytes Percent Auto 9.2 % (2-11); Neutrophils Absolute Auto 3.2 x10*3/uL (2.0-8.3); Neutrophils Percent Auto 46.9 % (45-73); Platelet Count 237 X10*3/uL (160-400); Red Blood Count 4.75 X10*6/uL (4.20-5.50); White Blood Count 6.8 X10*3/uL (4.8-10.8)
[2023-07-11 14:25] LABS: Alanine Aminotransferase 32 U/L (0-31); Albumin Level 4.1 g/dL (3.5-5.0); Alkaline Phosphatase 58 U/L (39-117); Anion Gap 14 (12-20); Aspartate Amino Transferase 29 U/L (5-31); Bilirubin Total 0.3 mg/dL (0.0-1.0); Blood Urea Nitrogen 12 mg/dL (9-16); Calcium 9.1 mg/dL (8.4-10.2); Carbon Dioxide 22 mmol/L (22-29); Chloride 107 mmol/L (96-108); Cholesterol 235 mg/dL (<200); Estimated Glomerular Filt Rate > 60; Glucose Fasting 108 mg/dL (60-99); HDL Cholesterol 45 mg/dL (>40); LDL Cholesterol Calculated 172 mg/dL (<100); Sodium 139 mmol/L (135-145); Total Protein 7.1 g/dL (6.5-8.0); Triglycerides 92 mg/dL (<150); Vitamin D 25-OH Total 22.9 ng/mL (>30)
[2023-07-23 17:17] LABS: FIB-ALT 29 U/L (6-29); FIB-Alpha-2-Macroglobulin 131 mg/dL (106-279); FIB-Apolipoprotein A1 131 mg/dL (101-198); FIB-GGT 19 U/L (3-55); FIB-Haptoglobin 153 mg/dL (43-212); FIB-Total Bilirubin 0.3 mg/dL (0.2-1.2); Liver Fibrosis Score 0.05; Liver Fibrosis Stage F0; Nec Inflam Act Grade A0
== END 2023-07-11 09:43 | disposition home or self-care (01) ==
LOC: HO.HMGCLDS 09:42
PROVIDERS: PCP Internal Medicine; Visit Provider Internal Medicine
DX: I10 Essential (primary) hypertension (principal); E55.9 Vitamin D deficiency, unspecified; E78.00 Pure hypercholesterolemia, unspecified; R79.89 Other specified abnormal findings of blood chemistry; R30.0 Dysuria
CPT/HCPCS: 36415; 80053; 80061; 81001; 81596; 82306; 84443; 85025; 87086

== ENCOUNTER 2023-11-11 09:33 | Outpatient (REF) | payer OTHER, MEDICAID, SELFPAY ==
[2023-11-11 13:19] LABS: MANUAL DIFF FLAG NO
[2023-11-11 13:25] LABS: Basophils Absolute Auto 0.1 X10*3/uL (0.0-0.2); Basophils Percent Auto 1.5 % (0-2); Eosinophils Absolute Auto 0.4 X10*3/uL (0.0-0.4); Eosinophils Percent Auto 5.6 % (0-4); Hematocrit 39.8 % (37.0-47.0); Hemoglobin 12.8 g/dl (12.0-16.0); Imm Gran Abs Auto 0.02 X10*3/uL (0.00-0.03); Imm Gran Pct Auto 0.3 % (0.0-0.4); Lymphocytes Absolute Auto 2.4 X10*3/uL (1.2-4.9); Lymphocytes Percent Auto 31.6 % (20-40); Mean Corpuscular HGB Conc 32.2 g/dl (31.0-35.0); Mean Corpuscular Hemoglobin 26.5 pg (27.0-33.0); Mean Corpuscular Volume 82.4 fL (80.0-98.0); Mean Platelet Volume 12.5 fL (9.4-12.3); Monocytes Absolute Auto 0.7 X10*3/uL (0.1-1.2); Monocytes Percent Auto 9.3 % (2-11); Neutrophils Absolute Auto 3.9 x10*3/uL (2.0-8.3); Neutrophils Percent Auto 51.7 % (45-73); Platelet Count 242 X10*3/uL (160-400); Red Blood Count 4.83 X10*6/uL (4.20-5.50); Red Cell Distribution Width 15.3 % (11.0-16.0); White Blood Count 7.4 X10*3/uL (4.8-10.8)
[2023-11-11 13:26] LABS: Appearance Urine Cloudy; Color Urine Yellow; Glucose Urine UA Negative (Negative); Leukocyte Esterase Urine Negative (Negative); Nitrite Urine Negative (Negative); Specific Gravity - Urine 1.025 (1.005-1.025); Urine Blood Negative (Negative); Urine Ketones Negative (Negative); Urine Protein Trace mg/dL (Neg-Trace)
[2023-11-11 13:50] LABS: Alanine Aminotransferase 39 U/L (0-31); Alkaline Phosphatase 60 U/L (39-117); Anion Gap 11 (12-20); Aspartate Amino Transferase 35 U/L (5-31); Bilirubin Total 0.4 mg/dL (0.0-1.0); Blood Urea Nitrogen 11 mg/dL (9-16); Calcium 9.2 mg/dL (8.4-10.2); Carbon Dioxide 25 mmol/L (22-29); Chloride 108 mmol/L (96-108); Cholesterol 207 mg/dL (<200); Estimated Glomerular Filt Rate > 60; Glucose Fasting 107 mg/dL (60-99); HDL Cholesterol 43 mg/dL (>40); LDL Cholesterol Calculated 147 mg/dL (<100); Potassium 4.2 mmol/L (3.3-5.1); Sodium 140 mmol/L (135-145); Total Protein 6.9 g/dL (6.5-8.0); Triglycerides 85 mg/dL (<150)
[2023-11-11 14:07] LABS: TSH reflex Free T4 2.17 uIU/mL (0.32-4.0); Vitamin D 25-OH Total 34.6 ng/mL (>30)
== END 2023-11-11 09:34 | disposition home or self-care (01) ==
LOC: HO.HMGCLDS 09:33
PROVIDERS: PCP Internal Medicine; Visit Provider Internal Medicine
DX: R30.0 Dysuria (principal); E78.00 Pure hypercholesterolemia, unspecified; D64.9 Anemia, unspecified; E55.9 Vitamin D deficiency, unspecified
CPT/HCPCS: 36415; 80053; 80061; 81003; 82306; 84443; 85025

== ENCOUNTER 2023-11-15 15:32 | Outpatient (AMB) | payer OTHER, MEDICAID, SELFPAY ==
--- NOTE | 2023-11-15 15:35 | MHC.PC.OV ---
Vital Signs 11/15/23 15:36 Height 5 ft 7.5 in Weight 291 lb BMI 44.9 BP 114/80 Blood Pressure Location Lt brachial Position Sitting Pulse 75 Pulse Source Pulse Oximeter Pulse Oximetry (%) 98 Oxygen Delivery Method Room Air Intake Visit Reasons: hyperlipidemia, elevated LFTs, palpitations [employer] Required: No Accompanied by: Self / Same As Patient Allergies atorvastatin Allergy (Unknown, Verified 11/15/23 15:59) chest pain Medication List - Last Reconciled 11/15/23 by Jermaine Waldron MD albuterol sulfate 90 mcg/actuation (ProAir HFA) 2 puffs inhalation Q4-6H PRN 30 days budesonide-formoterol 160-4.5 mcg/actuation (Symbicort) 2 puffs inhalation BID 30 days bupropion HCl XL 300 mg PO QAM bupropion HCl XL 150 mg PO QAM cholecalciferol (vitamin D3) 50 mcg PO DAILY 90 days clonazepam 1/2 to 1 tablet orally once a day as needed for anxiety; 30 days fluoxetine 20 mg PO QAM 90 days loratadine 10 mg PO DAILY PRN 90 days metoprolol succinate ER 25 mg PO DAILY 90 days omeprazole 40 mg PO DAILY sennosides-docusate sodium 8.6-50 mg (Senokot-S) 1 tab-cap PO BEDTIME 90 days Tobacco use date assessed: 11/15/23 Dental Screening Dental Screen Date: 11/15/23 Did you have a dental visit in the last 12 months?: No Did you have a dental problem in the last 6 months where you did not have access to dental care?: No Was dental information given to patient?: No HPI hyperlipidemia, elevated LFTs, palpitations HPI Details Patient comes in today for her follow up visit States that she feels okay She denies any headaches or dizziness Denies any chest pains; still has occasional palpitations but feels that her current Rx (Metoprolol) is helping to keep these in check She denies any increased SOB but still has COLLAZO that is likely related to her weight She also still feels bloated at times but states that Senokot-S has been working better for her with regards to her constipation Denies any nausea/vomiting or abdominal pain lately Feels that she has been doing as much as she can in terms of watching her diet and staying active and is frustrated that she has not lost more than a couple of pounds on her weight since her last visit Needs a few of her Rx refilled She had her follow up labs done a few days ago - to discuss her results [facility] Medical History Constipation Hyperlipidemia Hypertension Morbid obesity Elevated LFTs Morbid obesity with BMI of 40.0-44.9, adult Depression Anxiety Morbid obesity with BMI of 45.0-49.9, adult Hypoglycemia Recurrent urinary tract infection Smoker Insomnia Fatigue GERD without esophagitis Vitamin D deficiency Asthma Pure hypercholesterolemia Dizziness Surgical History History of use of contraceptive intrauterine device (IUD) Family History Father Hypertension Mother Diabetes Sister Cervical cancer Social History Housing: House Alcohol intake: current Alcohol intake frequency: holidays/special occasions only Patient Tobacco Use Status: Current everyday Tobacco user Tobacco use type: Cigarette Cigarette Packs Per Day: 0.25 Cigarettes Per Day: 5 e-Cigarette/Vaping Use: Never Used Second Hand Smoke Exposure: Yes service: No Current occupational status: employed Cognitive needs: No Hearing needs: No Vision needs: No Questionnaire PHQ-9 Over the last 2 weeks, how often have you been bothered by any of the following problems? 1. Little interest or pleasure in doing things: nearly every day 2. Feeling down, depressed, or hopeless: several days 3. Trouble falling or staying asleep, or sleeping too much: nearly every day 4. Feeling tired or having little energy: nearly every day 5. Poor appetite or overeating: several days 6. Feeling bad about yourself - or that you are a failure or have let yourself or your family down: not at all 7. Trouble concentrating on things, such as reading the newspaper or watching television: several days 8. Moving or speaking so slowly that other people could have noticed. Or the opposite - being so fidgety or restless that you have been moving around a lot more than usual: not at all 9. Thoughts that you would be better off or of hurting yourself in some way: not at all Total score: 12 Depression Screening Interpretation: Positive Depression Screening Follow-up: Existing condition and In treatment Depression Screening Done: Yes 16836 - PHQ-9 Billing: Yes Source: Developed by Drs. Froylan Marie, Kathy Hendrix, Jason Harper and colleagues, with an educational mani from [employer]. Thrive Questionnaire Date Thrive assessed: 11/15/23 I am a: Patient What is your living situation today?: I have a steady place to live Within the past 12 months, did the food you bought not last and you didn't have the money to get more?: Never true Within the past 12 months, did you worry whether your food would run out before you got money to buy more?: Never true Do you have trouble paying for medicines?: No Do you have trouble getting transportation to medical appointments?: No Do you have trouble paying your heating and electricity bill?: No Do you have trouble taking care of your child, family member or friend?: No Do you have trouble with day-to-day activities such as bathing, preparing meals, shopping, managing finances, etc.?: No Are you currently unemployed and looking for a job?: No Are you interested in more education?: No Please select the resources that you would like help with: None Currently or been in a relationship where the following occur: No concerns reported THRIVE Score: 0 AUDIT C Alcohol Use Questionnaire (AUDIT-C) 1. How often do you have a drink containing alcohol?: Never 3. How often do you have six or more drinks on one occasion?: Never Total Score: 0 Score Reviewed/Action Taken: Yes CHARO-7 AMB Questionnaire CHARO-7 Date CHARO - 7 assessed: 11/15/23 Feeling nervous, anxious, or on edge: 3 = Nearly every day Not being able to stop or control worryin = Several days Worrying too much about different things: 1 = Several days Trouble relaxin = Several days Being so restless that it is hard to sit still: 0 = Not at all Becoming easily annoyed or irritable: 3 = Nearly every day Feeling afraid as if something awful might happen: 1 = Several days Total CHARO-7 score (0-4 normal; 5-9 mild; 10-14 moderate; 15-21 severe): 10 Source: Developed by Drs. Froylan Marie, Kathy Hendrix, Jason Harper and colleagues, with an educational mani from [employer]. Review of Systems Const Denies chills, Reports fatigue, Denies fever(s) and Denies headache(s) ENT Denies dysphagia, Denies dizziness, Denies otalgia, Denies headache(s), Denies neck pain, Denies odynophagia and Denies sore throat Card Details: occasional palpitations Denies chest pain, Denies chest pain with activity, Reports palpitations (occasionally) and Reports dyspnea on exertion (mild) Resp Denies chest congestion, Denies cough and Reports dyspnea on exertion (mild) GI Denies abdominal pain, Reports bloating (occasionally), Reports constipation (better controlled lately with Rx), Denies dysphagia, Denies heartburn, Denies diarrhea, Denies nausea, Denies odynophagia and Denies vomiting Denies difficulty voiding, Denies nocturia, Denies dysuria and Denies urinary urgency Musc Reports back pain (on and off), Denies arthralgias and Denies neck pain Skin/Breast Denies rash Neuro Denies dizziness and Denies headache(s) Psych Reports anxiety Endo Reports fatigue and Reports palpitations (occasionally) Physical exam (Primary Care) Vital Signs: Last Vital Signs Pulse 75 11/15/23 15:36 BP 114/80 11/15/23 15:36 Pulse Ox 98 11/15/23 15:36 Oxygen Delivery Method Room Air 11/15/23 15:36 BMI result Body Mass Index 44.9 Tobacco/Smoking Status: Tobacco use Status Tobacco use date assessed 11/15/23 11/15/23 15:42 Patient Tobacco Use Status Current everyday Tobacco 11/15/23 15:36 Tobacco use type Cigarette 11/15/23 15:36 e-Cigarette/Vaping Use Never Used 11/15/23 15:36 PHQ-9: PHQ-9 Score PHQ-9: Total score 12 11/15/23 16:02 Depression Screening Interpretation: Positive Depression Screening Follow-up: Existing condition and In treatment Thrive Assessment: Date of Thrive Assessment Date Thrive assessed 11/15/23 11/15/23 15:42 Currently or been in a relationship where the following occur: No concerns reported Const General: no acute distress and alert Nutritional Appearance: obese morbidly obese [facility] Ears: TM's normal bilaterally and EAC's normal Throat: Yes posterior oropharynx normal and Yes tonsils normal (no TP congestion) Neck Neck: Yes no lymphadenopathy and Yes supple Thyroid: Thyroid normal Resp Auscultation: clear to auscultation bilaterally, no rales and no wheezes Cardio Rate: regular rate Rhythm: regular rhythm Heart sounds: no murmurs GI Palpation (GI): Soft to palpation and nontender Auscultation: normal bowel sounds General: Yes no CVA tenderness Back/Spine/Pelvis Back: no CVA tenderness Thoracic/Lumbar Spine: No lumbar spinal tenderness Skin Rashes: no rashes Extrem General: Yes no clubbing, cyanosis or edema Results Reviewed Results Reviewed: Laboratory Tests 11/11/23 11/11/23 09:40 09:50 WBC 7.4 Hgb 12.8 Hct 39.8 Plt Count 242 Sodium 140 Potassium 4.2 Creatinine 0.72 Estimated GFR > 60 Fasting Glucose 107 H Calcium 9.2 AST 35 H ALT 39 H Triglycerides 85 Cholesterol 207 H LDL Cholesterol, Calc 147 H HDL Cholesterol 43 25-OH Vitamin D Total 34.6 TSH 2.17 Ur Specific [place] 1.025 Urine Protein Trace Urine Glucose (UA) Negative Urine Blood Negative Urine Nitrite Negative Ur Leukocyte Esterase Negative Assessment and Plan Assessment & Plan (1) Heart palpitations: Code(s): R00.2 - Palpitations Plan: Cardiac work ups done, including echocardiogram, 3-day Holter monitor and 7 day Holter monitor, were all normal She was seen by cardiology and was advised to continue Metoprolol ER 25 mg QD (can take PRN) for symptomatic control/relief and reminded that losing weight can help alleviate or address her symptoms as well (2) Fatigue: Code(s): R53.83 - Other fatigue Qualifiers: Fatigue type: unspecified Qualified Code(s): R53.83 - Other fatigue Plan: She was previously referred to Sleep Medicine for further evaluation and to help r/o KATINA but it looks like she was never scheduled for an appointment Have offered to redo her referral but patient requested to hold off on this for now Have also advised patient that her fatigue can improve if she is able to eventually lose some weight (3) Pure hypercholesterolemia: Code(s): E78.00 - Pure hypercholesterolemia, unspecified Plan: Results of her labs done a few days ago reviewed and discussed with patient - is advised that her total and LDL cholesterol levels have improved slightly from previous and they are now down to 207 mg/dl (previously at 235 mg/dl) and 147 mg/dl (previously at 172 mg/dl) respectively She was supposed to be on Rosuvastatin 5 mg QD but she self-discontinued her Rx a few months ago as she supposedly was very worried about the potential side effects associated with the Rx Reinforced low cholesterol diet Patient would like to continue with diet modification for now as she has been able to get her numbers better over the past few months without any Rx Will recheck her labs and fasting lipids again in 4 months for follow up (4) Elevated LFTs: Code(s): R79.89 - Other specified abnormal findings of blood chemistry Plan: Have advised patient that her LFTs were still slightly elevated on her recent labs, most likely due to her weight Will continue to monitor her LFTs regularly/closely (5) Asthma: Code(s): J45.909 - Unspecified asthma, uncomplicated Qualifiers: Asthma complication type: uncomplicated Asthma persistence: intermittent Asthma severity: mild Qualified Code(s): J45.20 - Mild intermittent asthma, uncomplicated Plan: Continue Symbicort 160-4.5 mcg 2 inhalations BID and Albuterol HFA 2 inhalations every 6 hours as needed (6) Constipation: Code(s): K59.00 - Constipation, unspecified Qualifiers: Constipation type: unspecified constipation type Qualified Code(s): K59.00 - Constipation, unspecified Plan: Reinforced increased oral fluids and dietary fiber Continue Senokot-S Q HS PRN - states that this seems to be working better for her than any other Rx that she has tried in the past to help with her bowel movements (7) Vitamin D deficiency: Code(s): E55.9 - Vitamin D deficiency, unspecified Plan: Corrected - continue Vitamin D3 2000 units QD (8) Anxiety: Code(s): F41.9 - Anxiety disorder, unspecified Plan: Continue Clonazepam 0.5 mg 1/2 to 1 tablet once a day as needed and Fluoxetine 20 mg QD She has been referred to psychiatry and also for counseling and therapy (9) Depression: Code(s): F32.9 - Major depressive disorder, single episode, unspecified Qualifiers: Depression Type: unspecified Qualified Code(s): F32.9 - Major depressive disorder, single episode, unspecified Plan: Continue Bupropion ER 450 mg QD and Fluoxetine 20 mg QD - Rx refilled She has been referred to psychiatry for further evaluation and management (10) Smoker: Code(s): F17.200 - Nicotine dependence, unspecified, uncomplicated Plan: Counseled again on smoking cessation (11) Morbid obesity with BMI of 40.0-44.9, adult: Code(s): E66.01 - Morbid (severe) obesity due to excess calories; Z68.41 - Body mass index [BMI] 40.0-44.9, adult Plan: Reinforced diet/exercise as tolerated/lose weight She was referred to Weight Management previously - states that she was only interested in the medical weight management aspect but she somehow ended up being seen and considered for bariatric surgery She was recommended to undergo sleeve gastrectomy, which she continues to feel anxious about and has now decided that she does not want to have bariatric surgery done States that she would like to continue with her current attempts to lose weight on her own for now Plan Follow up in 4 months Orders: Orders Complete Blood Count Auto Diff 4 Months D64.9 - Anemia, unspecified TSH reflex Free T4 4 Months E78.00 - Pure hypercholesterolemia, unspecified Vitamin D 25-OH Total 4 Months E55.9 - Vitamin D deficiency, unspecified Vitamin B12 and Folate 4 Months E53.8 - Deficiency of other specified B group vitamins Hemoglobin A1c 4 Months R73.9 - Hyperglycemia, unspecified Comprehensive [place]. Panel Fast 4 Months E78.00 - Pure hypercholesterolemia, unspecified Lipid Panel 4 Months E78.00 - Pure hypercholesterolemia, unspecified UA CC w/rflx Micro + Cult 4 Months R30.0 - Dysuria Medications: Changed From albuterol sulfate 90 mcg/actuation (ProAir HFA) 2 puffs inhalation Q4-6H 30 days PRN 8.5 grams 5RF shortness of breath or wheezing J45.909 - Unspecified asthma, uncomplicated To albuterol sulfate 90 mcg/actuation 2 puffs inhalation Q4-6H 30 days PRN 8.5 grams 5RF shortness of breath or wheezing J45.909 - Unspecified asthma, uncomplicated Refilled sennosides-docusate sodium 8.6-50 mg (Senokot-S) 1 tab-cap PO BEDTIME 90 days 90 tabs 1RF fluoxetine 20 mg PO QAM 90 days 90 caps 1RF clonazepam 1/2 to 1 tablet orally once a day as needed for anxiety; 30 days 30 tabs 0RF anxiety bupropion HCl XL 150 mg PO QAM 90 tabs 1RF bupropion HCl XL 300 mg PO QAM 90 tabs 1RF omeprazole 40 mg PO DAILY 90 caps 1RF metoprolol succinate ER 25 mg PO DAILY 90 days 90 tabs 1RF Coding Level of Care Code Est Pt Level 4 (64946) Diagnoses Heart palpitations R00.2 Fatigue, unspecified type R53.83 Fatigue type: unspecified Pure hypercholesterolemia E78.00 Elevated LFTs R79.89 Mild intermittent asthma without complication J45.20 Asthma complication type: uncomplicated Asthma persistence: intermittent Asthma severity: mild Constipation, unspecified constipation type K59.00 Constipation type: unspecified constipation type Vitamin D deficiency E55.9 Anxiety F41.9 Depression, unspecified depression type F32.9 Depression Type: unspecified Smoker F17.200 Morbid obesity with BMI of 40.0-44.9, adult E66.01; Z68.41
[2023-11-15 15:36] VITALS: BP 114/80; PULSE 75; O2SAT 98; BMI 44.9
== END 2023-11-15 16:19 | disposition home or self-care (01) ==
PROVIDERS: PCP Internal Medicine; Visit Provider Internal Medicine
DX: R00.2 Palpitations (principal); R53.83 Other fatigue; E78.00 Pure hypercholesterolemia, unspecified; R79.89 Other specified abnormal findings of blood chemistry; J45.20 Mild intermittent asthma, uncomplicated; K59.00 Constipation, unspecified; E55.9 Vitamin D deficiency, unspecified; F41.9 Anxiety disorder, unspecified; F32.9 Major depressive disorder, single episode, unspecified; F17.200 Nicotine dependence, unspecified, uncomplicated
CPT/HCPCS: 99214

== ENCOUNTER → 2024-03-18 10:50 | Outpatient (REF) | payer OTHER, MEDICAID, SELFPAY ==
--- OUTSIDE RECORDS SUMMARY | 2024-03-18 12:45 | XMS_ITS | Continuity of Care Document ---
Author Organization [facility] Address [address] [place] [address] Phone Care Team Providers Care Web Consultant Name Role Phone Dimitrios Galvan MD Unavailable Unavailable Allergies, Adverse Reactions, Alerts Substance Reaction Status Criticality No Known Allergies Active No Inform ation Medications Medication Instructions Dosage Effective Dates (start - stop) Status Comments No Drug Therapy Prescribed Problems Condition Type Effective Dates (start - stop) Clini kina Status Comments No Known Problems Procedures Procedure Date OV, Estab Pt, Level III Diagnostic Nasal Endoscopy Tympanometry Comp Audiometry Threshold Eval 20 Diagnostic Nasal Endoscopy Removal Impacted Cerumen Req Instrumenta tion OV, Estab Pt, Level III Consult, Level III / Office Removal Impacted Cerumen Req Instrumenta tion Advance Directives Directive Yes / No Effective Date File Name No Information Encounters Encounter Description Practice Location Reason(s) For Visit Diagnoses Date Provider Providers Copied on Encounter OV, Estab Pt, Level III [facility], [address], [place], [place], [id number] , [place] tel:[phone] [facility] Follow-up on throat symptoms (chief complaint)S inus infection (chief complaint)e ar fullness (chief complaint) Laryngopharyngeal reflux (LPR)Chronic rhinitisAcute maxillary sinusitis, unspecifiedNasal congestionEncounter for exam of ears and hearing w/o abnormal findings 0 Cole Plunkett. [address] [facility] [facility], [place], [place], [id number], [place]. tel:[phone] OV, Estab Pt, Level III [facility], [address], [place], [place], [id number] , [place] tel: [phone] [facility] Evaluation of throat (chief complaint)n vashti congestion (chief complaint) Laryngopharyngeal reflux (LPR)Chronic rhinitisImpacted cerumen, bilateralDeviated nasal septum 0 Cole Plunkett. [address] [facility] [facility], [place], [place], [id number], [place]. tel:[phone] Consult, Level III / Office [facility], [address], [place], [place], [id number] , [place] tel: [phone] [facility] ear fullness (chief complaint) Impacted cerumen, left ear 8 Flori Gann. [address], [place], [place], [id number], [place]. tel:[phone] Family History Family Member Type Diagnosis Age At Onset Mother Problem (finding) diabetes melli tus in first degree relative Mother Problem (finding) Allergies Immunizations Vaccine Date Status Comments Influenza unspecified formulation completed Note: patient only r eported on this date, was given elsewhere ; Source: Source Unspecified Payers Payer name Insurance type Covered alliance [id number] Social History Type Description Quantity Date Captured Comments Alcohol Use Details No Caffeine Use Details Tobacco Use Status No Information Smoking Status Never smoker Non-Smoking Tobacco Use Details : No Details Available : No Details Available Sex Female Chief Complaint And Reason For Visit From encounter dated '04/13/2019 16:30'. Follow-up on throat symptoms (chief complaint). Description: Notes from March 16, 2019 - She is [id number] female who comes in today for evaluation of her throat. She is complaining of a globus sensation. She does have a history of reflux. She reports on Saturday she opened up a disposable knifefork and straw packet that was wrapped in plastic. She feels that some of the plastic from the wrapper was on the straw and that she swallowed some of the plastic. She is not having any throat pain but she does have a globus, or foreign body sensation in her throat. Her voice is normal. She is not having any dysphasia. She used to take Nexium for reflux but she is not currently taking anything.Notes from April 13, 2019 - I saw her last visit I felt that her throat symptoms were likely related to reflux. She is been working on reflux behavior modifications and her throat is feeling much better. The globus sensation and the foreign body sensation has greatly improved. Sinus infection (chief complaint). Description: She has a history of allergic rhinitis and nasal congestion. About 2 weeks ago she developed a upper restaurant tract infection which was followed by facial pressure and purulent drainage. She was seen in urgent care and treated with amoxicillin for 10 days for an acute sinus infection. She feels that the antibiotic has helped. I did place her on a nasal steroid spray last visit but she stopped using this. ear fullness (chief complaint). Description: Associated symptoms include fullness in ears. Additional information: Her ear fullness resolved removal of cerumen impaction. She had a normal audiogram today. Reason For Referral Reason For Referral No Information History Of Present Illness Encounter Date Complaint History Of Prese nt Illness ear fullness Associated sympt oms include fullness in ears. Additional information: Her ear fullness resolved removal of cerumen impaction. She had a normal audiogram today. Follow-up on throat symptoms Not es from March 16, 2019 - She is a 43-year-old female who comes in today for evaluation of her throat. She is complaining of a globus sensation. She does have a history of reflux. She reports on Saturday she opened up a disposable knife fork and straw packet that was wrapped in plastic. She feels that some of the plastic from the wrapper was on the straw and that she swallowed some of the plastic. She is not having any throat pain but she does have a globus, or foreign body sensation in her throat. Her voice is normal. She is not having any dysphasia. She used to take Nexium for reflux but she is not currently taking anything.Notes from April 13, 2019 - I saw her last visit I felt that her throat symptoms were likely related to reflux. She is been working on reflux behavior modifications and her throat is feeling much better. The globus sensation and the foreign body sensation has greatly improved. Sinus infection She has a histor y of allergic rhinitis and nasal congestion. About 2 weeks ago she developed a upper restaurant tract infection which was followed by facial pressure and purulent drainage. She was seen in urgent care and treated with amoxicillin for 10 days for an acute sinus infection. She feels that the antibiotic has helped. I did place her on a nasal steroid spray last visit but she stopped using this. Evaluation of throat She is a 43 -year-old female who comes in today for evaluation of her throat. She is complaining of a globus sensation. She does have a history of reflux. She reports on Saturday she opened up a disposable knife fork and straw packet that was wrapped in plastic. She feels that some of the plastic from the wrapper was on the straw and that she swallowed some of the plastic. She is not having any throat pain but she does have a globus, or foreign body sensation in her throat. Her voice is normal. She is not having any dysphasia. She used to take Nexium for reflux but she is not currently taking anything. nasal congestion Onset: gradual. It occurs in both nostrils. The patient describes it as partial. It occurs continuously. The problem fluctuates. Context: seasonal and with allergies. Relieving factors include antihistamines. Associated symptoms include nasal congestion, nasal drainage (clear) and seasonal allergies. Additional information: She has a history of seasonal allergies. Worse in the spring. She takes Kathie which helps. ear fullness Onset: 1 month a go. Severity level is moderate. Duration: 1 Month. The patient states it is in both ears and L>R. Associated symptoms include fullness in ears and hearing deficit. Pertinent negatives include congestion (nasal), cough, ear pain, fever, nausea and vomiting. Functional Status Date Functional Assessmen t No Information Medications Administered Medication Instructions Dosage Effective Dates (start - stop) Status Comments No Drug Therapy Prescribed Instructions Date Instruction Additional Infor sheila I suspect that your throat problems are likely at least partially secondary to Laryngopharyngeal Acid Reflux (LPR) which is also known as silent reflux because patients are often not aware that they have acid reflux. Reflux to the throat can often cause one or more of the following symptoms; a lump or foreign body sensation, frequent throat clearing, throat irritation or discomfort, trouble swallowing, and a hoarse voice. You should avoid caffeine, tomato based products, chocolate, fatty foods, skipping meals, and eating within 3 hours of going to bed. Related to Laryngopharyngeal reflux (LPR) Debrox, 6 drops each ear weekly Related to Impacted cerumen, left ear Assessments Type Assessment Date assessment Laryngopharyngeal reflux (LPR) F assessment Chronic rhinitis impression Her throat symptoms are greatly improved with reflux Behavioral modifications. She has less posterior laryngeal edema on today's Laryngoscopy. Recommend she continue to follow reflux Behavioral modifications. impression The sinus infection has resolved with antibiotics. Recommend she continue to use a nasal steroid spray daily when congested. Mental Status Date Cognitive Assessment Orientation - [place] ed to time, place, person, situation. Patient Care Teams Name Effective Dates (start - stop) Status Members No Information
== END ==
LOC: HO.CARD 10:50
PROVIDERS: PCP Internal Medicine
DX: R00.2 Palpitations (principal)
CPT/HCPCS: 93242

== ENCOUNTER → 2024-03-18 10:53 | Outpatient (BNV) | payer OTHER, MEDICAID, SELFPAY | PROVIDERS: PCP Internal Medicine; Visit Provider Internal Medicine Cardiovascular Disease | DX: I49.3 Ventricular premature depolarization (principal) | CPT/HCPCS: 93244 ==

== ENCOUNTER 2024-03-27 08:06 | Outpatient (AMB) | payer OTHER, MEDICAID, SELFPAY ==
--- NOTE | 2024-03-27 13:58 | A.OFFVIS_ITS ---
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 [facility] Allergies atorvastatin Allergy (Unknown, Verified 03/27/24 13:58) chest pain Medication List - Last Reconciled 03/27/24 by Marin Beal MD albuterol sulfate 90 mcg/actuation 2 puffs inhalation Q4-6H PRN 30 days budesonide-formoterol 160-4.5 mcg/actuation (Symbicort) 2 puffs inhalation BID 30 days bupropion HCl XL 150 mg PO QAM bupropion HCl XL 300 mg PO QAM cholecalciferol (vitamin D3) 50 mcg PO DAILY 90 days clonazepam 1/2 to 1 tablet orally once a day as needed for anxiety; 30 days fluoxetine 20 mg PO QAM 90 days loratadine 10 mg PO DAILY PRN 90 days metoprolol succinate ER 25 mg PO DAILY 90 days omeprazole 40 mg PO DAILY sennosides-docusate sodium 8.6-50 mg (Senokot-S) 1 tab-cap PO BEDTIME 90 days HPI HPI 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 [facility]: Details: Start time: 1.45pm, End time: 2.40pm ?I spent 50 minutes speaking with the patient on the phone plus an additional 5 minutes reviewing and updating records for a total of 55 minutes HPI Comments Details: Previous weight loss efforts: Herbalife shakes (20lbs) Wakes up: 6.30am, Sleeps: 11pm Breakfast: skips Lunch: skips Dinner: 6pm (rice, meat, chicken, pork) Snacks: 12pm (cheese and crackers), 3pm (chips), 8pm (chips, sweets) Exercise: has stationary bike and elliptical Fluids: Coffee: 1-2 large Chance Donuts, tea: none, soda: Regular Coke (1-2 cans/day), juice: none, ETOH: none PFSH Medical History Constipation Hyperlipidemia Hypertension Morbid obesity Elevated LFTs Morbid obesity with BMI of 40.0-44.9, adult Depression Anxiety Morbid obesity with BMI of 45.0-49.9, adult Hypoglycemia Recurrent urinary tract infection Smoker Insomnia Fatigue GERD without esophagitis Vitamin D deficiency Asthma Pure hypercholesterolemia Dizziness Surgical History History of use of contraceptive intrauterine device (IUD) Family History Father Hypertension Mother Diabetes Sister Cervical cancer Social History Housing: House Alcohol intake: current Alcohol intake frequency: holidays/special occasions only Patient Tobacco Use Status: Current everyday Tobacco user Tobacco use type: Cigarette Cigarette Packs Per Day: 0.25 Cigarettes Per Day: 5 e-Cigarette/Vaping Use: Never Used Second Hand Smoke Exposure: Yes service: No Current occupational status: employed Cognitive needs: No Hearing needs: No Vision needs: No Telehealth Telehealth Telehealth Platform: Telephone Location of provider rendering services: practice address Location of patient: address on file Patient Identification confirmed using: Name, : Yes Telehealth method: voice only Patient verbally consented to treatment: Yes Patient verbally consented to billing insurance company: Yes Patient informed of any privacy concerns related to visit: Yes Minutes spent on Phone/Video with Pt.: 55 Assessment & Plan Assessment & Plan (1) Morbid obesity with BMI of 45.0-49.9, adult: Code(s): E66.01 - Morbid (severe) obesity due to excess calories; Z68.42 - Body mass index [BMI] 45.0-49.9, adult Category: Medical Plan: 1. You will receive a link of our software abelino to generate an individualized nutritional and exercise plan specific for you. Please send me a screenshot of the plans you will generate Meal to include lean meat (beef, fish, pork, turkey, chicken), or maori yogurt, or egg whites, or beans with a salad with olive oil and fruits (berries, pears, apples, kiwi). Avoid salt, breads, potatoes, rice, pasta, desserts. ?2. If you choose shakes, each shake would be drunk slowly, like coffee in a period of 2 hours. ?3. If you choose bars, cut each bar in 4 pieces and eat each piece in 30min ?to make each bar last 2 hours. ?4. I emphasized the importance of measuring accurately the food portion and measure it when serving the food in plate ?5. The meal portions include a specific number of forks of meat and salad. You always eat the meat portion but you can replace up to half of salad/vegetables portion with rice, potatoes or pasta, or a fruit ?if you like. The less you do it the better weight loss will be. ?6. One full-size fork is what it can be scooped on the fork without falling aside and not what can be bit with the fork. Use regular forks like those you find in a typical restaurant. ?7.? Please send me weight measurements as soon as possible and then once a week. Always include your diet and exercise plan. ?8. Goal is to lose at least 1.5-2lbs per week ?9. Goal to lose 10% at least of your weight, which is about 30lbs. Ultimate weight goal: 270lbs before surgery 10. Please follow the diet plan exactly without any change. If you don't like something about the plan or you feel hungry you need to communicate with me so I can help you revise the plan. You should not change the plan yourself.
[2024-03-27 14:22] VITALS: BMI 46.3
== END 2024-03-27 14:40 | disposition home or self-care (01) ==
LOC: HO.HBS 08:06
PROVIDERS: PCP Internal Medicine; Visit Provider Surgery
DX: E66.01 Morbid (severe) obesity due to excess calories (principal); Z68.42 Body mass index [BMI] 45.0-49.9, adult
CPT/HCPCS: 98014

== ENCOUNTER 2024-04-22 11:47 | Outpatient (AMB) | payer OTHER, MEDICAID, SELFPAY ==
--- NOTE | 2024-04-22 11:53 | A.OFFPC_ITS ---
Vital Signs 04/22/24 11:54 Height 5 ft 7.5 in BP 130/88 Blood Pressure Location Lt brachial Position Sitting Pulse 98 Pulse Source Pulse Oximeter Temp 97.8 F Temp Source Temporal Artery Scan Pulse Oximetry (%) 97 Oxygen Delivery Method Room Air Intake Visit Reasons: she is having a hard time breathing Allergies atorvastatin Allergy (Unknown, Verified 04/22/24 12:01) chest pain Medication List - Last Reconciled 04/22/24 by Chris Herbert PA-C albuterol sulfate 90 mcg/actuation 2 puffs inhalation Q4-6H PRN 30 days budesonide-formoterol 160-4.5 mcg/actuation (Symbicort) 2 puffs inhalation BID 30 days bupropion HCl XL 150 mg PO QAM bupropion HCl XL 300 mg PO QAM cholecalciferol (vitamin D3) 50 mcg PO DAILY 90 days clonazepam 1/2 to 1 tablet orally once a day as needed for anxiety; 30 days fluoxetine 20 mg PO QAM 90 days loratadine 10 mg PO DAILY PRN 90 days metoprolol succinate ER 25 mg PO DAILY 90 days omeprazole 40 mg PO DAILY sennosides-docusate sodium 8.6-50 mg (Senokot-S) 1 tab-cap PO BEDTIME 90 days Tobacco use date assessed: 11/15/23 Dental Screening Dental Screen Date: 11/15/23 HPI she is having a hard time breathing HPI Details The patient is a 48-year-old female presenting with breathing difficulty and chronic cough exacerbation. She reports a persistent cough that has been troubling her for several days, particularly exacerbating at night when lying down. This has been accompanied by severe discomfort in the lungs, described as a feeling of pain and a fear of coughing up blood due to the severity. The patient has a history of asthma and describes the current symptoms as aligned with previous asthma exacerbations. She has visited urgent care where lungs were reported clear, and she was prescribed Tessalon Perles, nasal spray, and an inhaler, none of which provided symptom relief. Despite possessing a nebulizer, the treatment has not improved her condition. She acknowledges a decreased smoking frequency, ceasing entirely four days prior to the visit. No prior hospitalization for asthma exacerbations was noted. [facility]LY [facility], [facility] Medical History Constipation Hyperlipidemia Hypertension Morbid obesity Elevated LFTs Morbid obesity with BMI of 40.0-44.9, adult Depression Anxiety Morbid obesity with BMI of 45.0-49.9, adult Hypoglycemia Recurrent urinary tract infection Smoker Insomnia Fatigue GERD without esophagitis Vitamin D deficiency Asthma Pure hypercholesterolemia Dizziness Surgical History History of use of contraceptive intrauterine device (IUD) Family History Father Hypertension Mother Diabetes Sister Cervical cancer Social History Housing: House Alcohol intake: current Alcohol intake frequency: holidays/special occasions only Patient Tobacco Use Status: Current everyday Tobacco user Tobacco use type: Cigarette Cigarette Packs Per Day: 0.25 Cigarettes Per Day: 5 e-Cigarette/Vaping Use: Never Used Second Hand Smoke Exposure: Yes service: No Current occupational status: employed Cognitive needs: No Hearing needs: No Vision needs: No Questionnaire PHQ-9 Over the last 2 weeks, how often have you been bothered by any of the following problems? 14128 - PHQ-9 Billing: Patient declined-do not bill Source: Developed by Drs. Froylan Marie, Kathy Hendrix, Jason Harper and colleagues, with an educational mani from [employer]. Thrive Questionnaire Date Thrive assessed: 04/22/24 I am a: Patient What is your living situation today?: I have a steady place to live Within the past 12 months, did the food you bought not last and you didn't have the money to get more?: Never true Within the past 12 months, did you worry whether your food would run out before you got money to buy more?: Never true Do you have trouble paying for medicines?: No Do you have trouble getting transportation to medical appointments?: No Do you have trouble paying your heating and electricity bill?: No Do you have trouble taking care of your child, family member or friend?: No Do you have trouble with day-to-day activities such as bathing, preparing meals, shopping, managing finances, etc.?: No Are you currently unemployed and looking for a job?: No Are you interested in more education?: No Please select the resources that you would like help with: None Currently or been in a relationship where the following occur: No concerns reported THRIVE Score: 0 CHARO-7 AMB Questionnaire CHARO-7 Date CHARO - 7 assessed: 11/15/23 Source: Developed by Drs. Froylan Marie, Kathy Hendrix, Jason Harper and colleagues, with an educational mani from [employer]. Review of Systems Const Denies headache(s) Eyes Denies loss of vision ENT Denies vertigo, Denies dizziness, Denies headache(s) and Denies sore throat Card Denies chest pain, Denies leg edema, Denies lightheadedness and Reports dyspnea Resp Reports cough, Denies hemoptysis, Reports dyspnea and Denies wheezing GI Denies abdominal pain, Denies melena, Denies constipation, Denies diarrhea and Denies vomiting Denies urinary frequency, Denies dysuria and Denies urinary urgency Musc Denies arthralgias, Denies joint swelling, Denies numbness and Denies tingling Neuro Denies Abnormal speech present, Denies behavioral changes, Denies vertigo, Denies dizziness, Denies headache(s), Denies loss of vision, Denies memory loss, Denies numbness and Denies tingling Psych Denies anxiety, Denies behavioral changes, Denies depression, Denies memory loss and Denies panic attacks Kush/Lymph Denies easy bleeding and Denies easy bruising Aller/Immun Denies wheezing Physical exam (Primary Care) Vital Signs: Last Vital Signs Temp 97.8 F 04/22/24 11:54 Pulse 98 04/22/24 11:54 BP 130/88 04/22/24 11:54 Pulse Ox 97 04/22/24 11:54 Oxygen Delivery Method Room Air 04/22/24 11:54 Tobacco/Smoking Status: Tobacco use Status Tobacco use date assessed 11/15/23 04/22/24 11:53 Patient Tobacco Use Status Current everyday Tobacco 04/22/24 11:53 Tobacco use type Cigarette 04/22/24 11:53 e-Cigarette/Vaping Use Never Used 04/22/24 11:53 Thrive Assessment: Date of Thrive Assessment Date Thrive assessed 04/22/24 04/22/24 11:58 Currently or been in a relationship where the following occur: No concerns reported Const General: healthy appearing, no acute distress, alert and awake Nutritional Appearance: well nourished Orientation/consciousness: oriented to person, oriented to place and oriented to time HENMT Ears: TM's normal bilaterally General nose exam: Normal nasal mucous membranes and turbinates present Eyes Conjunctivae: conjunctivae normal Sclerae: sclerae normal Pupils: Equal, round and reactive pupils present Neck Neck: Yes no lymphadenopathy and Yes no JVD Thyroid: Thyroid normal Carotids: no bruits Resp Other: MILD RHONCHI RIGHT POSTERIOR LUNG AGUILAR Effort & Inspection: normal respiratory effort and not tachypneic Auscultation: no crackles, no rales, no rhonchi and no wheezes Cardio Rate: regular rate Rhythm: regular rhythm Heart sounds: no murmurs and normal S1 and S2 GI Palpation (GI): Soft to palpation, nontender, no hepatomegaly and no splenomegaly Auscultation: normal bowel sounds Skin General skin exam: no rashes or lesions noted and dry skin Neuro General: oriented to person, oriented to place and oriented to time Cranial nerves: Yes Equal, round and reactive pupils present Speech: No Abnormal speech present Gait exam (Neuro): Normal gait present Motor exam (neuro): no tremor noted Extrem Right upper extremity: full ROM Left upper extremity: full ROM Right lower extremity: full ROM; no edema Left lower extremity: full ROM; no edema Psych Mental Status: mental status grossly normal Speech and movement: Normal speech and movement present Affect: normal affect Attitude: cooperative Thought process: Normal thought process present Coding Level of Care Code Est Pt Level 3 (84448) Diagnoses Moderate persistent asthma with exacerbation J45.41 Asthma severity: moderate Asthma persistence: persistent Assessment & Plan Assessment & Plan (1) Asthma exacerbation: Code(s): J45.901 - Unspecified asthma with (acute) exacerbation Category: Medical Qualifiers: Asthma severity: moderate Asthma persistence: persistent Qualified Code(s): J45.41 - Moderate persistent asthma with (acute) exacerbation Plan: I discussed with the patient that her respiratory symptoms likely represent an asthma exacerbation, possibly triggered by an upper respiratory infection. I explained the plan to manage this with a prednisone taper and the possibility of antibiotics if symptoms worsen, providing anticipatory guidance for signs of secondary infection. Initiate prednisone taper for asthma exacerbation. - Prescribe antibiotic to prepare for potential infectious complications such as pneumonia. - Provide a medicated cough syrup containing codeine for nighttime cough suppression. Medications: New prednisone Take 3 tablets x3 days, 2 tablets x3 days, 1 tablet x3 days 10 mg PO DIRECTED 9 days 18 tabs 0RF J45.41 - Moderate persistent asthma with (acute) exacerbation codeine-guaifenesin 10-100 mg/5 mL 5 mL PO Q6H 5 days PRN 120 mL 0RF cough J45.41 - Moderate persistent asthma with (acute) exacerbation azithromycin For 250 mg dose pack: take 500 mg today (day 1), then 250 mg for 4 days (days 2-5) PO 6 tabs 0RF J45.41 - Moderate persistent asthma with (acute) exacerbation
[2024-04-22 11:54] VITALS: BP 130/88; PULSE 98; TEMP 36.6; O2SAT 97
--- OUTSIDE RECORDS SUMMARY | 2024-04-22 12:21 | XMS_ITS | Clinical Summary ---
Author Organization [place] [address] [address] [facility] Building Address [facility] [place] [address] Phone Care Team Providers Care Head Of Housekeeping Name Role Phone Mg Wright DO Primary Care Provider [phone] Allergies No known active allergies Medications dicyclomine (BENTYL) 10 mg capsule 2 Active famciclovir (FAMVIR) 250 mg tablet Take 1 tablet (250 mg total) by mouth 2 (two) times a day. 1 Active rosuvastatin (CRESTOR) 5 mg tablet Take 1 tablet (5 mg total) by mouth 1 (one) time each day. 0 Active FLUoxetine (PROzac) 10 mg capsule Take 1 capsule (10 mg total) by mouth 1 (one) time each day in the morning. 0 Active omeprazole (PriLOSEC) [address] capsule TK 1 C PO QD 0 Active SENNA LEAF EXTRACT ORAL by Does not apply route as needed. Active buPROPion XL (WELLBUTRIN XL) 300 mg 24 hr tablet Take 450 mg by mouth every morning. Active levonorgestreL (MIRENA) 21 mcg/24hr (up to 8 yrs) 52 mg IUD 1 Each by Intrauterine route once. Active clonazePAM (KlonoPIN) 0.5 mg tablet Take 0.5 mg by mouth daily as needed. Active albuterol HFA (PROAIR HFA ; PROVENTIL HFA ; VENTOLIN HFA) 90 mcg/actuation inhaler Inhale 2 Puffs into the lungs every 4 hours as needed. 2 puffs as needed Active Active Problems Problem Noted Date Diagnosed Date Anxiety 03/30/2008 Depression 03/30/2008 Immunizations Name Administration Dates Next Due Influenza trivalent, 0.5mL, preservative free (Fluarix; FluLaval; Fluzone) ages 6mo and older (Afluria) 3 years and older 12/23/2007 Surgical History Surgery Date Site/Laterality Comments OTHER SURGICAL HISTORY 10/23/12 PROCEDURE: LEVONORGESTREL IU 52 MG Medical History Medical History Date Comments Anxiety and depression DX:Anxiet y and depression Obesity DX:Obesity Asthma DX:Asthma GERD (gastroesophageal reflux disease) DX:GERD (gastroesophageal reflux disease) Family History Medical History Relation Name Comments Cervical cancer Sister ? endometria l-had cone bx-had hyst Breast cancer Neg Hx Colon cancer Neg Hx Ovarian cancer Neg Hx Relation Name Status Comments Father Alive Mother Alive Sister Social History Tobacco Use Types Packs/Day Years Used Date Smoking Tobacco: Every Day Cigarettes Smokeless Tobacco: Never Alcohol Use Standard Drinks/Week Comments Yes 0 (1 standard drink = 0.6 oz pur e alcohol) Housing Instability Answer Date Recorde d Are you worried that in the next 2 months you may not have stable housing? No 02/14/2024 Food Access & Nutrition Answer Date Rec orded Do you have access to a vari ety of food including fruits and vegetables? Yes 02/14/2024 Health Literacy Answer Date Recorded How often do you need to hav e someone help you when you read instructions, pamphlets, or other written material from your doctor or pharmacy? Never 02/14/2024 Caregiver: How often do you need to have someone help you when you read instructions, pamphlets, or other written material from your doctor or pharmacy? Not on file 02/14/2024 Financial Risk Answer Date Recorded How hard is it for you to pa y for the very basics like food, housing, medical care, and air conditioning / heating? Somewhat hard 02/14/2024 Transportation Answer Date Recorded Has the lack of transportati on kept you from meetings, work, or from getting things needed for daily living? No Has the lack of transportati on kept you from medical appointments or from getting medications? No 02/14/2024 Social Isolation Answer Date Recorded How often do you feel lonely or isolated from those around you? Sometimes 02/14/2024 Food Risk Answer Date Recorded Within the past 12 months we worried whether our food would run out before we got money to buy more. Never true 02/14/2024 Within the past 12 months th e food we bought just didn't last and we didn't have money to get more. Never true 02/14/2024 Dependent Care Answer Date Recorded Do you need help finding or paying for care for your loved ones. For example, salesperson children's shoes or elderly care for an older adult? No 02/14/2024 Education Answer Date Recorded Do you think completing more education or training, like finishing a GED, going to college, or learning a trade, would be helpful for you? Yes 02/14/2024 Employment and Income Answer Date Recor ded During the last four weeks, have you been actively looking for work? No 02/14/2024 Living Situation Answer Date Recorded What is your living situation? 1 04/16/2023 Comments Unknown Sex and Gender Information Value Date Recorded Sex Assigned at Not on file Legal Sex Female 9:00 AM EST Gender Identity Not on file Sexual Orientation Not on file Obstetrics History Last Filed Vital Signs Vital Sign Reading Time Taken Comments Blood Pressure 136/86 12/01/2021 1:34 PM EDT Pulse 86 12/01/2021 1:34 PM EDT Temperature - - Respiratory Rate - - Oxygen Saturation - - Inhaled Oxygen Concentration - - Weight 127 kg (279 lb 12.8 oz) 12/01/2021 1:34 P M EDT Height 170.2 cm (5' 7 ) 12/01/2021 1:34 PM EDT Body Mass Index 43.82 12/01/2021 1:34 PM EDT Plan of Treatment Upcoming Encounters Date Type Department Care Team (Late st Contact Info) Description 05/01/2024 2:45 PM EST Office Visit Obstetrics [facility]necology [facility] [address] [address] [place] [address] Kathy Jefferson, NAYLAM [address] [place] [address] 05/08/2024 2:10 PM EST Appointment Radiology Department [address] [address] Health Maintenance Due Date Last Done Comments DTaP,Tdap,and Td Vaccines (1 - Tdap) 1993 Hepatitis B Vaccines (1 of 3 - 19+ 3-dose series) 1993 Pneumococcal Vaccine: Pediatrics (0 to 5 Years) and At-Risk Patients (6 to 64 Years) (1 of 2 - PCV) 1993 Colorectal Cancer Screening: Colonoscopy 02/10/2022 COVID-19 Vaccine ( season) 2023 Influenza Vaccine (#1) 2023 12/23/2007 Depression Screening 02/13/2025 02/14/2024 Social Influencers of Health Screening 02/13/2025 02/14/2024 Breast Cancer Screening 05/02/2025 05/03/19 24, 05/03/2023, 04/30/2022, Additional history exists Cervical Cancer Screening: HPV 12/01/2026 12/01/2021 Hepatitis C Screening Completed 01/07/2015 HIV Screening Completed 01/13/2016 HIB Vaccines Aged Out No longer eligi ble based on patient's age to complete this topic HPV Vaccines Aged Out No longer eligi ble based on patient's age to complete this topic Hepatitis A Vaccines Aged Out No long er eligible based on patient's age to complete this topic IPV Vaccines Aged Out No longer eligi ble based on patient's age to complete this topic MMR Vaccines Aged Out No longer eligi ble based on patient's age to complete this topic Meningococcal ACWY Vaccine Aged Out N o longer eligible based on patient's age to complete this topic Meningococcal B Vacine Aged Out No lo nger eligible based on patient's age to complete this topic RSV Immunization Patients Under 20 months Aged Out No longer eligible based on patient's age to complete this topic Varicella Vaccines Aged Out No longer eligible based on patient's age to complete this topic Procedures Procedure Name Priority Date/Time Associated Diagnosis Comments SCREENING MAMMOGRAPHY BI 2-VIEW BREAST INC CAD Routine 05/03/2023 2:23 PM EST Encounter for other screening for malignant neoplasm of breast HPV Routine 12/01/2021 HIV SCREENING Routine 01/13/2016 HEPATITIS C SCREENING Routine 01/07/2015 from Last 3 Months or Most Recently Relevant to Health Maintenance Results * SCREENING MAMMOGRAPHY BI 2-VIEW BREAST INC CAD (05/03/2023 2:23 PM EST) Anatomical Region Laterality Modality Radiographic Miracle ging 04/30/2022 2:01 PM EST Narrative 05/04/2023 4:11 PM EST This is a summary report. The complete report is available in the patient's medical record. If you cannot access the medical record, please contact the sending organization for a detailed fax or copy. Full field digital screening 2D C views and tomosynthesis mammography, reviewed with CAD and compared to previous. The breasts are composed of fatty and fibroglandular tissue. ??No suspicious mass, architectural distortion or suspicious calcifications are identified. IMPRESSION: : No mammographic evidence of malignancy. BIRADS 1-Negative; N. 5 year breast cancer risk assessment 0.5 % Lifetime breast cancer risk assessment 5.2 % Breast cancer risk category Low (<15%) Procedure Note Nava Quinones MD - 10/21/2023 This is a summary report. The complete report is available in thepatient's medical record. If you cannot access the medical record, pleasecontact the sending organization for a detailed fax or copy. Full field digital screening 2D C views and tomosynthesis mammography,reviewed with CAD and compared to previous. The breasts are composed offatty and fibroglandular tissue. No suspicious mass, architecturaldistortion or suspicious calcifications are identified. IMPRESSION: : No mammographic evidence of malignancy. BIRADS 1-Negative; N. 5 year breast cancer risk assessment 0.5 % Lifetime breast cancer risk assessment 5.2 % Breast cancer risk category Low (<15%) Paul [facility] IMG XR PROCEDURES Final Result * Cervical Cancer Screening: HPV (12/01/2021) Pathologist [facility] Cervical Cancer Screening: HPV positive,a bstracted Historical Provider HEALTH MAINTENANCE Final Result * HIV Screening (01/13/2016) Pathologist [facility] HIV Screening ABSTRACTED [facility] Provider HEALTH MAINTENANCE Final Result * Hepatitis C Screening (01/07/2015) Pathologist [facility] Hepatitis C Screening ABSTRACTED Historical Provider HEALTH MAINTENANCE Final Result from Last 3 Months or Most Recently Relevant to Health Maintenance Insurance MEDICAID - [place] Care Teams Head Of Housekeeping Relationship Specialty Start Date End Date Mg Wright DO [facility] [address] [address] PCP - General 08/12/03
== END 2024-04-22 12:23 | disposition home or self-care (01) ==
PROVIDERS: PCP Internal Medicine; Visit Provider Physician Assistant
DX: J45.41 Moderate persistent asthma with (acute) exacerbation (principal)

== ENCOUNTER 2024-04-29 14:47 | Outpatient (AMB) | payer OTHER, MEDICAID, SELFPAY ==
[2024-04-29 15:09] VITALS: BP 120/72; PULSE 86; O2SAT 98
--- NOTE | 2024-04-29 15:09 | MHC.PC.OV ---
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 Required: No Accompanied by: Self / Same As Patient Allergies atorvastatin Allergy (Unknown, Verified 04/29/24 15:44) chest pain Medication List - Last Reconciled 04/29/24 by Jermaine Waldron MD albuterol sulfate 90 mcg/actuation 2 puffs inhalation Q4-6H PRN 30 days bupropion HCl XL 150 mg PO QAM bupropion HCl XL 300 mg PO QAM cholecalciferol (vitamin D3) 50 mcg PO DAILY 90 days clonazepam 1/2 to 1 tablet orally once a day as needed for anxiety; 30 days codeine-guaifenesin 10-100 mg/5 mL 5 mL PO Q6H PRN 5 days fluoxetine 20 mg PO QAM 90 days loratadine 10 mg PO DAILY PRN 90 days metoprolol succinate ER 25 mg PO DAILY 90 days omeprazole 40 mg PO DAILY prednisone 10 mg PO DIRECTED 9 days sennosides-docusate sodium 8.6-50 mg (Senokot-S) 1 tab-cap PO BEDTIME 90 days Tobacco use date assessed: 04/29/24 Dental Screening Dental Screen Date: 04/29/24 Did you have a dental visit in the last 12 months?: Yes Did you have a dental problem in the last 6 months where you did not have access to dental care?: No Was dental information given to patient?: Patient has dentist HPI 4 month f/u HPI Details Patient comes in today for her follow up visit She continues to complain of increased chest tightness and congestion with recurrent coughing and SOB - states that she can hardly cough up any phlegm She went to a local urgent care center about a week ago for the same complaints and was tested for influenza, COVID, RSV and strep, all of which came back negative She was sent home with Rx of Duoneb nebulizer solution and Benzonatate for symptomatic relief She came into the office a couple of days later for the same complaints and was started on oral Prednisone taper starting at 30 mg, which patient felt was too low of a dose States that she is more than [place] through her Prednisone taper and has a couple of days of her Rx left but she feels no better than she did last week - still has increased chest congestion and tightness and states that even with her inhaler and nebulizer, she struggles to breathe at times Relates (+) fatigue but she denies any fever, headaches or dizziness Denies any exertional chest pains No nausea/vomiting, no abdominal pain No change in bowel habits noted She was not able to get her follow up labs done prior to her appointment today as she has been sick for over a week now [facility] Medical History Constipation Hyperlipidemia Hypertension Morbid obesity Elevated LFTs Morbid obesity with BMI of 40.0-44.9, adult Depression Anxiety Morbid obesity with BMI of 45.0-49.9, adult Hypoglycemia Recurrent urinary tract infection Smoker Insomnia Fatigue GERD without esophagitis Vitamin D deficiency Asthma Pure hypercholesterolemia Dizziness Surgical History History of use of contraceptive intrauterine device (IUD) Family History Father Hypertension Mother Diabetes Sister Cervical cancer Social History Housing: House Alcohol intake: current Alcohol intake frequency: holidays/special occasions only Patient Tobacco Use Status: Current everyday Tobacco user Tobacco use type: Cigarette Cigarette Packs Per Day: 0.25 Cigarettes Per Day: 5 e-Cigarette/Vaping Use: Never Used Second Hand Smoke Exposure: Yes service: No Current occupational status: employed Cognitive needs: No Hearing needs: No Vision needs: No Questionnaire PHQ-9 Over the last 2 weeks, how often have you been bothered by any of the following problems? 1. Little interest or pleasure in doing things: not at all 2. Feeling down, depressed, or hopeless: not at all 3. Trouble falling or staying asleep, or sleeping too much: not at all 4. Feeling tired or having little energy: not at all 5. Poor appetite or overeating: not at all 6. Feeling bad about yourself - or that you are a failure or have let yourself or your family down: not at all 7. Trouble concentrating on things, such as reading the newspaper or watching television: not at all 8. Moving or speaking so slowly that other people could have noticed. Or the opposite - being so fidgety or restless that you have been moving around a lot more than usual: not at all 9. Thoughts that you would be better off or of hurting yourself in some way: not at all Total score: 0 Depression Screening Interpretation: Negative Depression Screening Done: Yes 34434 - PHQ-9 Billing: Yes Source: Developed by Drs. Froylan Marie, Kathy Hendrix, Jason Harper and colleagues, with an educational mani from [email or web address]. Thrive Questionnaire Date Thrive assessed: 04/29/24 I am a: Patient What is your living situation today?: I have a steady place to live Within the past 12 months, did the food you bought not last and you didn't have the money to get more?: Never true Within the past 12 months, did you worry whether your food would run out before you got money to buy more?: Never true Do you have trouble paying for medicines?: No Do you have trouble getting transportation to medical appointments?: No Do you have trouble paying your heating and electricity bill?: No Do you have trouble taking care of your child, family member or friend?: No Do you have trouble with day-to-day activities such as bathing, preparing meals, shopping, managing finances, etc.?: No Are you currently unemployed and looking for a job?: No Are you interested in more education?: No Please select the resources that you would like help with: None Currently or been in a relationship where the following occur: No concerns reported THRIVE Score: 0 AUDIT C Alcohol Use Questionnaire (AUDIT-C) 1. How often do you have a drink containing alcohol?: Never 3. How often do you have six or more drinks on one occasion?: Never Total Score: 0 Score Reviewed/Action Taken: Yes CHARO-7 AMB Questionnaire CHARO-7 Date CHARO - 7 assessed: 04/29/24 Feeling nervous, anxious, or on edge: 0 = Not at all Not being able to stop or control worryin = Not at all Worrying too much about different things: 0 = Not at all Trouble relaxin = Not at all Being so restless that it is hard to sit still: 0 = Not at all Becoming easily annoyed or irritable: 0 = Not at all Feeling afraid as if something awful might happen: 0 = Not at all Total CHARO-7 score (0-4 normal; 5-9 mild; 10-14 moderate; 15-21 severe): 0 Source: Developed by Drs. Froylan Marie, Kathy Hendrix, Jason Harper and colleagues, with an educational mani from [email or web address]. Review of Systems Const Denies chills, Reports fatigue, Denies fever(s) and Denies headache(s) ENT Denies dysphagia, Denies dizziness, Denies otalgia, Denies headache(s), Denies neck pain, Denies odynophagia and Denies sore throat Card Details: occasional palpitations Denies chest pain, Denies chest pain with activity, Reports palpitations (occasionally) and Reports dyspnea (chest feels tight and congested often lately) Resp Reports chest congestion (chest feels tight often), Reports cough (recurrent), Reports dyspnea (chest feels tight and congested often lately) and Reports wheezing (recurrent) GI Denies abdominal pain, Reports bloating (at times), Reports constipation (better controlled lately with Rx), Denies dysphagia, Denies heartburn, Denies diarrhea, Denies nausea, Denies odynophagia and Denies vomiting Denies difficulty voiding, Denies nocturia, Denies dysuria and Denies urinary urgency Musc Reports back pain (on and off), Denies arthralgias and Denies neck pain Skin/Breast Denies rash Neuro Denies dizziness and Denies headache(s) Psych Reports anxiety Endo Reports fatigue and Reports palpitations (occasionally) Aller/Immun Reports wheezing (recurrent) Physical exam (Primary Care) Vital Signs: Last Vital Signs Pulse 86 04/29/24 15:09 BP 120/72 04/29/24 15:09 Pulse Ox 98 04/29/24 15:09 Oxygen Delivery Method Room Air 04/29/24 15:09 Tobacco/Smoking Status: Tobacco use Status Tobacco use date assessed 04/29/24 04/29/24 15:13 Patient Tobacco Use Status Current everyday Tobacco 04/29/24 15:13 Tobacco use type Cigarette 04/29/24 15:13 e-Cigarette/Vaping Use Never Used 04/29/24 15:13 PHQ-9: PHQ-9 Score PHQ-9: Total score 0 05/01/24 09:52 Depression Screening Interpretation: Negative Thrive Assessment: Date of Thrive Assessment Date Thrive assessed 04/29/24 04/29/24 15:13 Currently or been in a relationship where the following occur: No concerns reported Const General: no acute distress and alert Nutritional Appearance: obese morbidly obese HENMT Ears: TM's normal bilaterally and EAC's normal Throat: Yes posterior oropharynx normal and Yes tonsils normal (no TP congestion) Neck Neck: Yes no lymphadenopathy and Yes supple Thyroid: Thyroid normal Resp Auscultation: clear to auscultation bilaterally, no rales and no wheezes Cardio Rate: regular rate Rhythm: regular rhythm Heart sounds: no murmurs GI Palpation (GI): Soft to palpation and nontender Auscultation: normal bowel sounds General: Yes no CVA tenderness Back/Spine/Pelvis Back: no CVA tenderness Thoracic/Lumbar Spine: No lumbar spinal tenderness Skin Rashes: no rashes Extrem General: Yes no clubbing, cyanosis or edema Coding Level of Care Code Est Pt Level 4 (28153) Diagnoses Moderate persistent asthma with exacerbation J45.41 Asthma persistence: persistent Asthma severity: moderate Heart palpitations R00.2 Pure hypercholesterolemia E78.00 Elevated LFTs R79.89 Vitamin D deficiency E55.9 Constipation, unspecified constipation type K59.00 Constipation type: unspecified constipation type Anxiety F41.9 Depression, unspecified depression type F32.9 Depression Type: unspecified Smoker F17.200 Morbid obesity with BMI of 40.0-44.9, adult E66.01; Z68.41 Additional Codes PHQ-9 - 38839 - PHQ-9 Billing: Yes ([id number]) Assessment & Plan Assessment & Plan (1) Asthma exacerbation: Code(s): J45.901 - Unspecified asthma with (acute) exacerbation Category: Medical Qualifiers: Asthma persistence: persistent Asthma severity: moderate Qualified Code(s): J45.41 - Moderate persistent asthma with (acute) exacerbation Plan: Patient was given an updraft treatment with Albuterol nebulizer solution in the office today, after which she reports (+) significant relief of her symptoms temporarily She now admits that she has not been on Symbicort for a couple of years now and has just been using her Albuterol inhaler PRN lately Will start her again on Symbicort 160-4.5 mcg 2 inahalations BID and she is advised that she needs to use this EVERYDAY irregardless of whether she feels SOB or not as this is her CONTROLLER Rx - she is advised that her asthma is currently NOT controlled at all She can continue on Albuterol HFA 2 inhalations Q 6 hours PRN OR use her nebulizer if she has access to it in place of her Albuterol inhaler when needed - all Rx refilled Will start her as well on oral Prednisone taper but to start at 60 mg and then gradually wean down and titrate herself off this over the next 18 days She is instructed to call at any time if her breathing gets worse despite all of her current Tx (2) Heart palpitations: Code(s): R00.2 - Palpitations Category: Medical Plan: Cardiac work ups done, including echocardiogram, 3-day Holter monitor and 7 day Holter monitor, were all normal She was seen by cardiology and was advised to continue on Metoprolol ER 25 mg QD (can take PRN) for symptomatic control/relief and have reminded her that losing weight can help alleviate or address her symptoms as well Follow up with cardiology as scheduled (3) Pure hypercholesterolemia: Code(s): E78.00 - Pure hypercholesterolemia, unspecified Category: Medical Plan: She was not able to get her follow up labs done prior to her appointment today as she has been sick for the past week and a half now Her total and LDL cholesterol levels were down to 207 mg/dl (previously at 235 mg/dl) and 147 mg/dl (previously at 172 mg/dl) respectively on her most recent labs done a few months ago She was supposed to be on Rosuvastatin 5 mg QD but she self-discontinued her Rx last year as she was supposedly worried about the potential side effects associated with the Rx Reinforced low cholesterol diet She would like to just continue with diet modification for now as she has been able to get her numbers better over the past few months without any Rx Will recheck her labs and fasting lipids in 3 months for follow up - she has been advised to just use her current orders (updated) for her next lab draw (4) Elevated LFTs: Code(s): R79.89 - Other specified abnormal findings of blood chemistry Category: Medical Plan: Her LFTs were still slightly elevated on her most recent labs done a few months ago, most likely due to her weight Will continue to monitor her LFTs regularly/closely (5) Vitamin D deficiency: Code(s): E55.9 - Vitamin D deficiency, unspecified Category: Medical Plan: Corrected Continue Vitamin D3 2000 units QD (6) Constipation: Code(s): K59.00 - Constipation, unspecified Category: Medical Qualifiers: Constipation type: unspecified constipation type Qualified Code(s): K59.00 - Constipation, unspecified Plan: Reinforced increased oral fluids and dietary fiber Continue Senokot-S Q HS PRN - states that this seems to be working better for her than any other Rx that she has tried in the past to help with her bowel movements (7) Anxiety: Code(s): F41.9 - Anxiety disorder, unspecified Category: Medical Plan: Continue Clonazepam 0.5 mg 1/2 to 1 tablet once a day as needed and Fluoxetine 20 mg QD She has been referred to psychiatry and also for counseling and therapy (8) Depression: Code(s): F32.9 - Major depressive disorder, single episode, unspecified Category: Medical Qualifiers: Depression Type: unspecified Qualified Code(s): F32.9 - Major depressive disorder, single episode, unspecified Plan: Continue Bupropion ER 450 mg QD and Fluoxetine 20 mg QD - Rx refilled She has been referred to psychiatry for further evaluation and management (9) Smoker: Code(s): F17.200 - Nicotine dependence, unspecified, uncomplicated Category: Social Hx Plan: Patient is counseled again on smoking cessation (10) Morbid obesity with BMI of 40.0-44.9, adult: Code(s): E66.01 - Morbid (severe) obesity due to excess calories; Z68.41 - Body mass index [BMI] 40.0-44.9, adult Category: Medical Plan: Reinforced diet/exercise as tolerated/lose weight She was referred to Weight Management previously - states that she was only interested in the medical weight management aspect but she somehow ended up being seen and considered for bariatric surgery She was recommended to undergo sleeve gastrectomy, which she continues to feel very anxious about and has eventually decided that she does not want to have bariatric surgery done States that she would like to continue with her current attempts to lose weight on her own for now Plan Follow up in 3 months Orders: Orders AMB Nebulizer Treatment 04/29/24 J45.41 - Moderate persistent asthma with (acute) exacerbation Medications: New prednisone 6 tablets x 3 days, then 5 tablets x 3 days, then 4 tablets x 3 days, then 3 tablet x 3 days, then 2 tablets x 3 days, then 1 tablet x 3 days 18 days 63 ea 0RF J44.1 - Chronic obstructive pulmonary disease with (acute) exacerbation, J45.901 - Unspecified asthma with (acute) exacerbation albuterol sulfate 2.5 mg (3 mL) continuous nebulization QID 30 days PRN 180 mL 3RF shortness of breath or wheezing J45.998 - Other asthma albuterol sulfate 2.5 mg (3 mL) inhalation ONCE 3 mL 0RF J45.41 - Moderate persistent asthma with (acute) exacerbation budesonide-formoterol 160-4.5 mcg/actuation (Symbicort) 2 inhalations inhalation BID 30 days 10.2 grams 5RF J45.998 - Other asthma Refilled clonazepam 1/2 to 1 tablet orally once a day as needed for anxiety; 30 days 30 tabs 0RF anxiety bupropion HCl XL 150 mg PO QAM 90 tabs 1RF metoprolol succinate ER 25 mg PO DAILY 90 days 90 tabs 1RF omeprazole 40 mg PO DAILY 90 caps 1RF bupropion HCl XL 300 mg PO QAM 90 tabs 1RF fluoxetine 20 mg PO QAM 90 days 90 caps 1RF sennosides-docusate sodium 8.6-50 mg (Senokot-S) 1 tab-cap PO BEDTIME 90 days 90 tabs 1RF
--- OUTSIDE RECORDS SUMMARY | 2024-04-29 18:14 | XMS_ITS | Clinical Summary ---
Author Organization [place] [id number] [address] [facility] Building Address [facility] [place] [address] Phone Care Team Providers Care Legal Officer Name Role Phone Mg Wright DO Primary Care Provider [phone] Allergies No known active allergies Medications dicyclomine [...] care for your loved ones. For example, early childhood associate teacher or elderly care for an older adult? [...] Obstetrics and Gynecology - [address] [place] [address] Kathy Jefferson, [address] [place] [address] 05/08/2024 2:10 PM EST Appointment Radiology Department [address] [address] Health Maintenance Due Date Last [...] * Cervical Cancer Screening: HPV (12/01/2021) Pathologist [facility] Cervical Cancer Screening: HPV positive,a bstracted Historical Provider HEALTH MAINTENANCE Final Result * HIV Screening (01/13/2016) Pathologist [facility] HIV Screening ABSTRACTED [facility] Provider HEALTH MAINTENANCE Final Result * Hepatitis C Screening (01/07/2015) Pathologist [facility] Hepatitis C Screening ABSTRACTED Historical Provider HEALTH MAINTENANCE Final Result from Last 3 Months or Most Recently Relevant to Health Maintenance Insurance MEDICAID - [place] Care Teams Legal Officer Relationship Specialty Start Date End Date Mg Wright DO [facility] [address] PCP - General 08/12/03
--- OUTSIDE RECORDS SUMMARY | 2024-04-29 18:14 | XMS_ITS | Continuity of Care Document ---
Author Organization [facility] K[facility]EN archer Address [address] [place] [address] Phone Care Team Providers Care Public Health Nurse Name Role Phone Dimitrios Galvan MD Unavailable [...] Allergy Associate KAREN kohler, [address], [place], [place], [id number] , [place] tel:[phone] [facility] Follow-up on throat symptoms (chief complaint)S inus infection (chief complaint)e ar fullness (chief complaint) Laryngopharyngeal reflux (LPR)Chronic rhinitisAcute maxillary sinusitis, unspecifiedNasal congestionEncounter for exam of ears and hearing w/o abnormal findings 0 Cole Plunkett. [address] [facility] [facility], [place], [place], [id number], [place]. tel:[phone] OV, Estab Pt, Level III [facility], [address], [place], [place], [id number] , [place] tel: [phone] [facility] Evaluation of throat (chief complaint)n vashti congestion (chief complaint) Laryngopharyngeal reflux (LPR)Chronic rhinitisImpacted cerumen, bilateralDeviated nasal septum 0 Cole Plunkett. [address] [facility] [facility], [place], [place], [id number], [place]. tel:[phone] Consult, Level III / Office [facility], [address], [place], [place], [id number] , [place] tel: [phone] [facility] ear fullness (chief complaint) Impacted cerumen, left ear 8 Flori Gann. [address], [place], [place], [id number], [place]. tel:[phone] Family History Family Member Type Diagnosis Age At Onset Mother Problem (finding) diabetes melli tus in first degree relative Mother Problem (finding) Allergies Immunizations Vaccine Date Status Comments Influenza unspecified formulation completed Note: patient only r eported on this date, was given elsewhere ; Source: Source Unspecified Payers Payer name Insurance type Covered green party [id number] Social History Type Description Quantity Date Captured [...] from March 16, 2019 - She is [id number] female who comes in today for evaluation [...] Mental Status Date Cognitive Assessment Orientation - [place] ed to time, place, person, situation. Patient Care Teams Name Effective Dates (start - stop) Status Members No Information
== END 2024-04-29 15:57 | disposition home or self-care (01) ==
PROVIDERS: PCP Internal Medicine; Visit Provider Internal Medicine
DX: J45.41 Moderate persistent asthma with (acute) exacerbation (principal); R00.2 Palpitations; E66.01 Morbid (severe) obesity due to excess calories; Z68.41 Body mass index [BMI] 40.0-44.9, adult; E78.00 Pure hypercholesterolemia, unspecified; R79.89 Other specified abnormal findings of blood chemistry; E55.9 Vitamin D deficiency, unspecified; K59.00 Constipation, unspecified; F41.9 Anxiety disorder, unspecified; F32.9 Major depressive disorder, single episode, unspecified; F17.200 Nicotine dependence, unspecified, uncomplicated

== ENCOUNTER → 2024-04-29 14:47 | Outpatient (BNVA) | payer OTHER, MEDICAID, SELFPAY | PROVIDERS: PCP Internal Medicine; Visit Provider Internal Medicine | DX: J45.41 Moderate persistent asthma with (acute) exacerbation (principal); R00.2 Palpitations; E78.00 Pure hypercholesterolemia, unspecified; R79.89 Other specified abnormal findings of blood chemistry; E55.9 Vitamin D deficiency, unspecified; K59.00 Constipation, unspecified; F41.9 Anxiety disorder, unspecified; F32.9 Major depressive disorder, single episode, unspecified; E66.01 Morbid (severe) obesity due to excess calories; Z68.41 Body mass index [BMI] 40.0-44.9, adult; F17.200 Nicotine dependence, unspecified, uncomplicated; Z79.899 Other long term (current) drug therapy | CPT/HCPCS: 96127 ==

== ENCOUNTER → 2024-06-15 10:52 | Outpatient (REF) | payer OTHER, MEDICAID, SELFPAY ==
--- OUTSIDE RECORDS SUMMARY | 2024-06-15 12:49 | XMS_ITS | Clinical Summary ---
Author Organization [place] [address] [address] [facility] Building Address [facility] [place] [address] Phone Care Team Providers Care Pan Pusher Name Role Phone Mg Wright DO Primary Care Provider [phone] Allergies No known active allergies Medications dicyclomine [...] care for your loved ones. For example, school childcare attendant or elderly care for an older adult? [...] Care Team (Late st Contact Info) Description 07/10/2024 3:45 PM EDT Office Visit Obstetrics and Gynecology - [address] [address] Stacy Angel CNM [address] [place] [address] 09/21/2024 1:10 PM EDT Appointment Radiology Department [address] [place] [address] Health Maintenance Due Date Last Done Comments DTaP,Tdap,and Td Vaccines (1 - Tdap) 1993 Hepatitis B Vaccines (1 of 3 - 19+ 3-dose series) 1993 Pneumococcal Vaccine: Pediatrics (0 to 5 Years) and At-Risk Patients (6 to 64 Years) (1 of 2 - PCV) 1993 Colorectal Cancer Screening: Colonoscopy 02/10/2022 COVID-19 Vaccine ( season) 2023 Influenza Vaccine (Season Ended) 2024 12/23/2007 Depression Screening 02/13/2025 02/14/2024 Social Influencers [...] age to complete this topic Meningococcal B Vaccine Aged Out No l onger eligible based on patient's age to complete [...] * Cervical Cancer Screening: HPV (12/01/2021) Pathologist [facility] Cervical Cancer Screening: HPV positive,a bstracted Historical Provider HEALTH MAINTENANCE Final Result * HIV Screening (01/13/2016) Pathologist [facility] HIV Screening ABSTRACTED [facility] Provider HEALTH MAINTENANCE Final Result * Hepatitis C Screening (01/07/2015) Pathologist [facility] Hepatitis C Screening ABSTRACTED Historical Provider HEALTH MAINTENANCE Final Result from Last 3 Months or Most Recently Relevant to Health Maintenance Insurance [place] - [place] Care Teams Pan Pusher Relationship Specialty Start Date End Date Mg Wright DO [address] [address] PCP - General 08/12/03
== END ==
LOC: HO.SL 10:52
PROVIDERS: PCP Family Medicine
DX: G47.33 Obstructive sleep apnea (adult) (pediatric) (principal)
CPT/HCPCS: 95806

== ENCOUNTER → 2024-06-16 11:34 | Outpatient (BNV) | payer OTHER, MEDICAID, SELFPAY | PROVIDERS: PCP Family Medicine; Visit Provider Internal Medicine | DX: G47.33 Obstructive sleep apnea (adult) (pediatric) (principal) | CPT/HCPCS: 95806 ==

== ENCOUNTER 2024-09-18 13:04 | Outpatient (AMB) | payer OTHER, MEDICAID, SELFPAY ==
[2024-09-18 13:06] VITALS: BP 124/70; PULSE 73; O2SAT 98; BMI 45.5
--- NOTE | 2024-09-18 13:06 | A.OFFPC_ITS ---
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: No Accompanied by: Self / Same As Patient Allergies atorvastatin Allergy (Unknown, Verified 09/18/24 13:43) chest pain Medication List - Last Reconciled 09/18/24 by Jermaine Waldron MD albuterol sulfate 90 mcg/actuation 2 puffs inhalation Q4-6H PRN 30 days albuterol sulfate 2.5 mg (3 mL) continuous nebulization QID PRN 30 days budesonide-formoterol 160-4.5 mcg/actuation (Symbicort) 2 inhalations inhalation BID 30 days bupropion HCl XL 150 mg PO QAM bupropion HCl XL 300 mg PO QAM cholecalciferol (vitamin D3) 50 mcg PO DAILY 90 days clonazepam 1/2 to 1 tablet orally once a day as needed for anxiety; 30 days codeine-guaifenesin 10-100 mg/5 mL 5 mL PO Q6H PRN 5 days fluoxetine 20 mg PO QAM 90 days loratadine 10 mg PO DAILY PRN 90 days metoprolol succinate ER 25 mg PO DAILY 90 days omeprazole 40 mg PO DAILY prednisone 10 mg PO DIRECTED 9 days prednisone 6 tablets x 3 days, then 5 tablets x 3 days, then 4 tablets x 3 days, then 3 tablet x 3 days, then 2 tablets x 3 days, then 1 tablet x 3 days 18 days prednisone 4 tablets x 2 days, then 3 tablets x 2 days, then 2 tablets x 2 days, then 1 tablet x 2 days 8 days sennosides-docusate sodium 8.6-50 mg (Senokot-S) 1 tab-cap PO BEDTIME 90 days Tobacco use date assessed: 09/18/24 Dental Screening Dental Screen Date: 09/18/24 Did you have a dental visit in the last 12 months?: No Did you have a dental problem in the last 6 months where you did not have access to dental care?: No Was dental information given to patient?: No HPI Annual Exam HPI Details Patient comes in today for her annual physical examination States that she continues to struggle with losing weight We have tried starting patient on a GLP-1 medication in the past to help her lose weight but her insurance would not cover the Rx and attempts to convince them to cover the medication through requests for prior authorization were also denied She was therefore referred for weight management and she is currently still under medical supervision for weight loss She was seen by Dr. Beal at [facility] earlier this year and has been drinking their recommended protein shakes for a few months now but does not feel that she is making much progress with weight loss Patient states that she feels okay otherwise She denies any headaches or dizziness Denies any chest pains, no SOB No nausea/vomiting, no abdominal pain No change in bowel habits noted She denies any acute urinary symptoms States that she forgot to do her labs before coming in today and will try to get them done tomorrow morning She is scheduled for her annual mammogram at [place] next week on 09/21/2024 - states that she has no Hx of any abnormal mammograms in the past She has her yearly gynecology appt coming up also at [place] on 11/08/2024 States that she has (+) Hx of abnormal pap about 4 yrs ago but her repeat biopsies reportedly came out normal She has never had a screening colonoscopy done in the past - she recalls that s he had to cancel her procolonoscopy appointment a couple of years ago and never had a chance to reschedule her appointment [facility] Medical History Constipation Hyperlipidemia Hypertension Morbid obesity Elevated LFTs Morbid obesity with BMI of 40.0-44.9, adult Depression Anxiety Morbid obesity with BMI of 45.0-49.9, adult Hypoglycemia Recurrent urinary tract infection Smoker Insomnia Fatigue GERD without esophagitis Vitamin D deficiency Asthma Pure hypercholesterolemia Dizziness Surgical History History of use of contraceptive intrauterine device (IUD) Family History Father Hypertension Mother Diabetes Sister Cervical cancer Social History Housing: House Alcohol intake: current Alcohol intake frequency: holidays/special occasions only Patient Tobacco Use Status: Current everyday Tobacco user Tobacco use type: Cigarette Cigarette Packs Per Day: 0.25 Cigarettes Per Day: 5 e-Cigarette/Vaping Use: Never Used Second Hand Smoke Exposure: Yes service: No Current occupational status: employed Cognitive needs: No Hearing needs: No Vision needs: No Questionnaire PHQ-9 Over the last 2 weeks, how often have you been bothered by any of the following problems? 1. Little interest or pleasure in doing things: not at all 2. Feeling down, depressed, or hopeless: not at all 3. Trouble falling or staying asleep, or sleeping too much: not at all 4. Feeling tired or having little energy: not at all 5. Poor appetite or overeating: not at all 6. Feeling bad about yourself - or that you are a failure or have let yourself or your family down: not at all 7. Trouble concentrating on things, such as reading the newspaper or watching television: not at all 8. Moving or speaking so slowly that other people could have noticed. Or the opposite - being so fidgety or restless that you have been moving around a lot more than usual: not at all 9. Thoughts that you would be better off or of hurting yourself in some way: not at all Total score: 0 Depression Screening Interpretation: Negative Depression Screening Done: Yes 42410 - PHQ-9 Billing: Yes Source: Developed by Drs. Froylan Marie, Kathy Hendrix, Jason Harper and colleagues, with an educational mani from [employer]. Thrive Questionnaire Date Thrive assessed: 09/18/24 I am a: Patient What is your living situation today?: I choose not to answer this question Within the past 12 months, did the food you bought not last and you didn't have the money to get more?: I choose not to answer this question Within the past 12 months, did you worry whether your food would run out before you got money to buy more?: I choose not to answer this question Do you have trouble paying for medicines?: No Do you have trouble getting transportation to medical appointments?: No Do you have trouble paying your heating and electricity bill?: No Do you have trouble taking care of your child, family member or friend?: No Do you have trouble with day-to-day activities such as bathing, preparing meals, shopping, managing finances, etc.?: No Are you currently unemployed and looking for a job?: Yes Are you interested in more education?: No Please select the resources that you would like help with: None Currently or been in a relationship where the following occur: I choose not to answer THRIVE Score: 0 AUDIT C Alcohol Use Questionnaire (AUDIT-C) 1. How often do you have a drink containing alcohol?: Never 3. How often do you have six or more drinks on one occasion?: Never Total Score: 0 Score Reviewed/Action Taken: Yes CHARO-7 AMB Questionnaire CHARO-7 Date CHARO - 7 assessed: 09/18/24 Feeling nervous, anxious, or on edge: 0 = Not at all Not being able to stop or control worryin = Not at all Worrying too much about different things: 0 = Not at all Trouble relaxin = Not at all Being so restless that it is hard to sit still: 0 = Not at all Becoming easily annoyed or irritable: 0 = Not at all Feeling afraid as if something awful might happen: 0 = Not at all Total CHARO-7 score (0-4 normal; 5-9 mild; 10-14 moderate; 15-21 severe): 0 Source: Developed by Drs. Froylan Marie, Kathy Hendrix, Jason Harper and colleagues, with an educational mani from [employer]. Review of Systems Const Denies chills, Denies fatigue, Denies fever(s), Denies headache(s) and Denies malaise Eyes Denies blurry vision, Denies change in vision, Denies irritation and Denies itchy eyes ENT Denies dysphagia, Denies dizziness, Denies otalgia, Denies headache(s), Denies nasal congestion, Denies neck pain, Denies odynophagia, Denies sinus pain and Denies sore throat Card Denies chest pain, Denies rapid heart rate, Denies irregular heart rhythm, Denies palpitations and Denies dyspnea Resp Denies chest congestion, Denies cough, Denies dyspnea and Denies wheezing GI Denies abdominal pain, Denies bloating, Denies constipation, Denies dysphagia, Denies heartburn, Denies diarrhea, Denies nausea, Denies odynophagia and Denies vomiting Denies hematuria, Denies urinary frequency, Denies dysuria, Denies urinary incontinence and Denies urinary urgency Musc Denies back pain, Denies arthralgias, Denies joint swelling, Denies muscle weakness and Denies neck pain Skin/Breast Denies breast pain, Denies breast mass, Denies change in pigmentation, Denies lesions, Denies rash and Denies unusual bruising Neuro Denies dizziness, Denies headache(s) and Denies paresthesias Psych Denies anxiety and Denies depression Endo Denies fatigue and Denies palpitations Kush/Lymph Denies easy bruising Aller/Immun Denies itchy eyes and Denies wheezing Physical exam (Primary Care) Vital Signs: Last Vital Signs Pulse 73 09/18/24 13:06 BP 124/70 09/18/24 13:06 Pulse Ox 98 09/18/24 13:06 Oxygen Delivery Method Room Air 09/18/24 13:06 BMI result Body Mass Index 45.5 Tobacco/Smoking Status: Tobacco use Status Tobacco use date assessed 09/18/24 09/18/24 13:14 Patient Tobacco Use Status Current everyday Tobacco 09/18/24 13:14 Tobacco use type Cigarette 09/18/24 13:14 e-Cigarette/Vaping Use Never Used 09/18/24 13:14 PHQ-9: PHQ-9 Score PHQ-9: Total score 0 09/18/24 18:27 Depression Screening Interpretation: Negative Thrive Assessment: Date of Thrive Assessment Date Thrive assessed 09/18/24 09/18/24 13:14 Currently or been in a relationship where the following occur: I choose not to answer Const General: no acute distress, alert and awake Orientation/consciousness: patient oriented x3 [facility] Head: Yes normocephalic and Yes atraumatic Ears: external ears normal, TM's normal bilaterally and EAC's normal General nose exam: No nasal discharge present Face and sinus: Yes normal facial exam and Yes sinuses nontender Teeth and gingiva: dentition normal Throat: Yes posterior oropharynx normal and Yes tonsils normal (no TP congestion) Eyes Eyelids: Yes eyelids normal Conjunctivae: conjunctivae normal Pupils: Equal, round and reactive pupils present EOM: EOMs intact bilaterally Neck Neck: Yes no lymphadenopathy and Yes supple Thyroid: Thyroid normal Resp Auscultation: clear to auscultation bilaterally, no rales and no wheezes Cardio Rate: regular rate Rhythm: regular rhythm Heart sounds: no murmurs GI Palpation (GI): Soft to palpation, nontender and No hepatosplenomegaly present Auscultation: normal bowel sounds General: Yes no CVA tenderness Back/Spine/Pelvis Back: no CVA tenderness Thoracic/Lumbar Spine: thoracic and lumbar spine normal to inspection Skin Lesions: no lesions Rashes: no rashes Neuro General: patient oriented x3, moves all extremities, no focal motor deficits and CN's II-XI intact bilaterally Cranial nerves: Yes Equal, round and reactive pupils present Cognition (Neuro): normal cognition Gait exam (Neuro): Normal gait present Extrem General: Yes no clubbing, cyanosis or edema Coding Level of Care Code Est Pt Prev Care 40-64y(01728) Diagnoses Annual physical exam Z00.00 Moderate persistent asthma without complication J45.40 Asthma severity: moderate Asthma persistence: persistent Asthma complication type: uncomplicated Heart palpitations R00.2 Pure hypercholesterolemia E78.00 Elevated LFTs R79.89 Vitamin D deficiency E55.9 Constipation, unspecified constipation type K59.00 Constipation type: unspecified constipation type Anxiety F41.9 Depression, unspecified depression type F32.9 Depression Type: unspecified Smoker F17.200 Morbid obesity with BMI of 45.0-49.9, adult E66.01; Z68.42 Colon cancer screening Z12.11 Additional Codes PHQ-9 - 17477 - PHQ-9 Billing: Yes ([id number]) Assessment & Plan Assessment & Plan (1) Annual physical exam: Code(s): Z00.00 - Encounter for general adult medical examination without abnormal findings Category: Medical Plan: Check labs - patient states that she forgot to do her labs before coming in today and will try to get them done tomorrow morning She is up-to-date with her breast and cervical cancer screenings - she is scheduled for her annual mammogram at [facility] [place] next week on 09/21/2024 - states that she has no Hx of any abnormal mammograms in the past She has her yearly gynecology appt coming up also at [place] on 11/08/2024 States that she has (+) Hx of abnormal pap about 4 yrs ago but her repeat biopsies reportedly came out normal She has never had a screening colonoscopy done in the past - she recalls that she had to cancel her procolonoscopy appointment a couple of years ago and never had a chance to reschedule her appointment (2) Asthma: Code(s): J45.909 - Unspecified asthma, uncomplicated Category: Medical Qualifiers: Asthma severity: moderate Asthma persistence: persistent Asthma complication type: uncomplicated Qualified Code(s): J45.40 - Moderate persistent asthma, uncomplicated Plan: Better controlled lately Continue Symbicort 160-4.5 mcg 2 inahalations BID and Albuterol HFA 2 inhalations Q 6 hours PRN (3) Heart palpitations: Code(s): R00.2 - Palpitations Category: Medical Plan: Cardiac work ups done in the past, including echocardiogram, 3-day Holter monitor and 7 day Holter monitor, were all normal She was seen by cardiology and was advised to continue on Metoprolol ER 25 mg QD (can take PRN) for symptomatic control/relief Follow up with cardiology as scheduled (4) Pure hypercholesterolemia: Code(s): E78.00 - Pure hypercholesterolemia, unspecified Category: Medical Plan: Reinforced low cholesterol diet She was again not able to get her follow up labs done prior to her appointment today - states that she will try to get these done tomorrow morning Her total and LDL cholesterol levels were down to 207 mg/dl (previously at 235 mg/dl) and 147 mg/dl (previously at 172 mg/dl) respectively on her most recent labs done last year in November 2023 She was on Rosuvastatin 5 mg QD but she self-discontinued her Rx last year as she was supposedly worried about the potential side effects associated with the Rx and would like to just continue with diet modification for now We will see how her repeat numbers are when she gets her labs done and decide how to best go about this (5) Elevated LFTs: Code(s): R79.89 - Other specified abnormal findings of blood chemistry Category: Medical Plan: Her LFTs were still slightly elevated on her most recent labs done last year, most likely due to her weight Will continue to monitor her LFTs regularly/closely (6) Vitamin D deficiency: Code(s): E55.9 - Vitamin D deficiency, unspecified Category: Medical Plan: Continue Vitamin D3 2000 units QD (7) Constipation: Code(s): K59.00 - Constipation, unspecified Category: Medical Qualifiers: Constipation type: unspecified constipation type Qualified Code(s): K59.00 - Constipation, unspecified Plan: Reinforced increased oral fluids and dietary fiber Continue Senokot-S Q HS PRN - states that this seems to be working better for her than any other Rx that she has tried in the past to help with her bowel movements (8) Anxiety: Code(s): F41.9 - Anxiety disorder, unspecified Category: Medical Plan: Continue Clonazepam 0.5 mg 1/2 to 1 tablet once a day as needed and Fluoxetine 20 mg QD She has been referred to psychiatry and also for counseling and therapy (9) Depression: Code(s): F32.9 - Major depressive disorder, single episode, unspecified Category: Medical Qualifiers: Depression Type: unspecified Qualified Code(s): F32.9 - Major depressive disorder, single episode, unspecified Plan: Continue Bupropion ER 450 mg QD and Fluoxetine 20 mg QD She has been referred to psychiatry for further evaluation and management (10) Smoker: Code(s): F17.200 - Nicotine dependence, unspecified, uncomplicated Category: Social Hx Plan: Patient is counseled again on complete smoking cessation (11) Morbid obesity with BMI of 45.0-49.9, adult: Code(s): E66.01 - Morbid (severe) obesity due to excess calories; Z68.42 - Body mass index [BMI] 45.0-49.9, adult Category: Medical Plan: Reinforced diet/exercise as tolerated/lose weight She was previously referred to Weight Management - patient states that she was interested only in the medical weight management aspect but she somehow ended up being seen and considered for bariatric surgery She was recommended to undergo sleeve gastrectomy, which she continues to feel very anxious about and eventually decided that she does not want to have bariatric surgery done and would like to continue with her current attempts to lose weight Her health insurance has denied all previous attempts to start her on a GLP-1 Rx to help her lose weight She is currently requesting for a referral to weight management at [place] as her current attempts at weight loss do not seem to be producing much results for her at this time - referral placed (12) Colon cancer screening: Code(s): Z12.11 - Encounter for screening for malignant neoplasm of colon Category: Medical Plan: Per request, will refer her to [facility] for screening colonoscopy Plan Follow up in 4 months Orders: Orders Comprehensive [place]. Panel Fast 4 Months E78.00 - Pure hypercholesterolemia, unspecified Lipid Panel 4 Months E78.00 - Pure hypercholesterolemia, unspecified Referrals Gastroenterology Referral Z12.11 - Encounter for screening for malignant neoplasm of colon Medical Weight Management Referral E66.01 - Morbid (severe) obesity due to excess calories, Z68.42 - Body mass index [BMI] 45.0-49.9, adult
--- OUTSIDE RECORDS SUMMARY | 2024-09-18 13:07 | XMS_ITS | Clinical Summary ---
Author Organization [place] [id number] [address] [facility] Building Address [facility] [place] [address] Phone Care Team Providers Care Bilingual Student Tutor Name Role Phone Mg Wright DO Primary Care Provider [phone] Allergies No known active allergies Medications dicyclomine [...] care for your loved ones. For example, assistant child care teacher or elderly care for an older [...] Care Team (Late st Contact Info) Description 09/21/2024 1:10 PM EDT Appointment Radiology Department [address] [id number] 11/13/2024 10:00 AM EDT Office Visit Obstetrics and [facility]necology - [facility] [address] [facility] [place] [address] Jennifer Gaviria, NAYLAM [address] [place] [address] Health Maintenance Due Date Last Done Comments DTaP,Tdap,and Td Vaccines (1 - Tdap) 1993 Hepatitis B Vaccines (1 of 3 - 19+ 3-dose series) 1993 Pneumococcal Vaccine: 50+ Years (1 of 2 - PCV) 1993 Colorectal Cancer Screening: Colonoscopy 02/10/2022 COVID-19 Vaccine ( - season) 2023 Depression Screening 03/04/2024 02/14/2024 Zoster Vaccines (1 of 2) 2024 Influenza Vaccine (#1) 2024 12/23/2007 Social Influencers of Health Screening 02/13/2025 02/14/2024 [...] are composed of fatty and fibroglandular tissue. No suspicious mass, architectural distortion or suspicious calcifications [...] Breast cancer risk category Low (<15%) Paul Carroll CNM IMG XR PROCEDURES Final Result * Cervical Cancer Screening: HPV (12/01/2021) [facility] Cervical Cancer Screening: HPV positive,a bstracted Historical Provider HEALTH MAINTENANCE Final Result * HIV Screening (01/13/2016) [facility] HIV Screening ABSTRACTED Historical Provider HEALTH MAINTENANCE Final Result * Hepatitis C Screening (01/07/2015) [facility] Hepatitis C Screening ABSTRACTED Historical Provider HEALTH MAINTENANCE Final Result from Last 3 Months or Most Recently Relevant to Health Maintenance Insurance MEDICAID - [place] [employer] Care Teams Bilingual Student Tutor Relationship Specialty Start Date End Date Mg Wright DO [address] [address] PCP - General 08/12/03
== END 2024-09-18 13:59 | disposition home or self-care (01) ==
LOC: HO.HMCH 13:05
PROVIDERS: PCP Internal Medicine; Visit Provider Internal Medicine
DX: Z00.00 Encounter for general adult medical examination without abnormal findings (principal); J45.40 Moderate persistent asthma, uncomplicated; E66.01 Morbid (severe) obesity due to excess calories; Z68.42 Body mass index [BMI] 45.0-49.9, adult; R00.2 Palpitations; E78.00 Pure hypercholesterolemia, unspecified; R79.89 Other specified abnormal findings of blood chemistry; E55.9 Vitamin D deficiency, unspecified; K59.00 Constipation, unspecified; F41.9 Anxiety disorder, unspecified; F32.9 Major depressive disorder, single episode, unspecified; F17.200 Nicotine dependence, unspecified, uncomplicated

== ENCOUNTER → 2024-09-18 13:04 | Outpatient (BNVA) | payer OTHER, MEDICAID, SELFPAY | PROVIDERS: PCP Internal Medicine; Visit Provider Internal Medicine | DX: Z00.00 Encounter for general adult medical examination without abnormal findings (principal); J45.40 Moderate persistent asthma, uncomplicated; R00.2 Palpitations; E78.00 Pure hypercholesterolemia, unspecified; R79.89 Other specified abnormal findings of blood chemistry; E55.9 Vitamin D deficiency, unspecified; K59.00 Constipation, unspecified; F41.9 Anxiety disorder, unspecified; F32.9 Major depressive disorder, single episode, unspecified; E66.01 Morbid (severe) obesity due to excess calories; Z68.42 Body mass index [BMI] 45.0-49.9, adult; F17.210 Nicotine dependence, cigarettes, uncomplicated; Z79.899 Other long term (current) drug therapy; Z13.31 Encounter for screening for depression; Z13.39 Encounter for screening examination for other mental health and behavioral disorders | CPT/HCPCS: 96127 ==

== ENCOUNTER 2024-11-19 13:57 | Outpatient (AMB) | payer OTHER, MEDICAID, SELFPAY ==
--- NOTE | 2024-11-19 13:59 | MHC.PC.OV ---
Vital Signs 11/19/24 14:01 Height 5 ft 7.25 in Weight 289 lb 4 oz BMI 45.0 BP 140/90 H Blood Pressure Location Lt brachial Position Sitting Pulse 87 Pulse Oximetry (%) 97 Oxygen Delivery Method Room Air Intake Visit Reasons: painful mole on back and high B/P Fence Supervisor Required: No Accompanied by: Self / Same As Patient Allergies atorvastatin Allergy (Unknown, Verified 11/19/24 14:03) chest pain Medication List - Last Reconciled 11/19/24 by Roman Casarez MD albuterol sulfate 90 mcg/actuation 2 puffs inhalation Q4-6H PRN 30 days albuterol sulfate 2.5 mg (3 mL) continuous nebulization QID PRN 30 days budesonide-formoterol 160-4.5 mcg/actuation (Symbicort) 2 inhalations inhalation BID 30 days bupropion HCl XL 150 mg PO QAM bupropion HCl XL 300 mg PO QAM cholecalciferol (vitamin D3) 50 mcg PO DAILY 90 days clonazepam 1/2 to 1 tablet orally once a day as needed for anxiety; 30 days codeine-guaifenesin 10-100 mg/5 mL 5 mL PO Q6H PRN 5 days diclofenac sodium 1% (Voltaren Arthritis Pain) 2 grams topical QID 2 weeks fluoxetine 20 mg PO QAM 90 days loratadine 10 mg PO DAILY PRN 90 days metoprolol succinate ER 25 mg PO DAILY 90 days omeprazole 40 mg PO DAILY prednisone 10 mg PO DIRECTED 9 days prednisone 6 tablets x 3 days, then 5 tablets x 3 days, then 4 tablets x 3 days, then 3 tablet x 3 days, then 2 tablets x 3 days, then 1 tablet x 3 days 18 days prednisone 4 tablets x 2 days, then 3 tablets x 2 days, then 2 tablets x 2 days, then 1 tablet x 2 days 8 days sennosides-docusate sodium 8.6-50 mg (Senokot-S) 1 tab-cap PO BEDTIME 90 days Tobacco use date assessed: 09/18/24 Dental Screening Dental Screen Date: 11/19/24 Did you have a dental visit in the last 12 months?: No Did you have a dental problem in the last 6 months where you did not have access to dental care?: No Was dental information given to patient?: No HPI HPI Comments History of Present Illness Details The patient is a 49-year-old female presenting with hypertension and palpitations. She reports a history of elevated blood pressure readings during most recent visit to the weight clinic, raising concerns about the need for antihypertensive medication. Her BP was elevated in clinic today. The patient also experiences frequent palpitations, described as a sensation of the heart wanting to come out of the chest, which have been persistent and severe. She has a history of anxiety and has previously been prescribed metoprolol for palpitations, which she took intermittently. The patient has undergone cardiac evaluations, including Holter monitoring, which indicated sinus tachycardia but no other significant findings. The patient reports musculoskeletal pain around a mole on her back, which has been present for a few weeks. The pain is described as soreness and burning, with no visible skin changes or history of shingles. The patient has been advised to apply Voltaren gel as a conservative measure. [facility] Medical History Constipation Hyperlipidemia Hypertension Morbid obesity Elevated LFTs Morbid obesity with BMI of 40.0-44.9, adult Depression Anxiety Morbid obesity with BMI of 45.0-49.9, adult Hypoglycemia Recurrent urinary tract infection Smoker Insomnia Fatigue GERD without esophagitis Vitamin D deficiency Asthma Pure hypercholesterolemia Dizziness Surgical History History of use of contraceptive intrauterine device (IUD) Family History Father Hypertension Mother Diabetes Sister Cervical cancer Social History Housing: House Alcohol intake: current Alcohol intake frequency: holidays/special occasions only Patient Tobacco Use Status: Current everyday Tobacco user Tobacco use type: Cigarette Cigarette Packs Per Day: 0.25 Cigarettes Per Day: 5 e-Cigarette/Vaping Use: Never Used Second Hand Smoke Exposure: Yes service: No Current occupational status: employed Cognitive needs: No Hearing needs: No Vision needs: No Questionnaire Thrive Questionnaire Date Thrive assessed: 09/18/24 I am a: Patient What is your living situation today?: I choose not to answer this question Within the past 12 months, did the food you bought not last and you didn't have the money to get more?: I choose not to answer this question Within the past 12 months, did you worry whether your food would run out before you got money to buy more?: I choose not to answer this question Do you have trouble paying for medicines?: No Do you have trouble getting transportation to medical appointments?: No Do you have trouble paying your heating and electricity bill?: No Do you have trouble taking care of your child, family member or friend?: No Do you have trouble with day-to-day activities such as bathing, preparing meals, shopping, managing finances, etc.?: No Are you currently unemployed and looking for a job?: Yes Are you interested in more education?: No Please select the resources that you would like help with: None Currently or been in a relationship where the following occur: I choose not to answer THRIVE Score: 0 CHARO-7 AMB Questionnaire CHARO-7 Date CHARO - 7 assessed: 09/18/24 Source: Developed by Drs. Froylan Marie, Kathy Hendrix, Jason Harper and colleagues, with an educational mani from [employer]. Review of Systems Const Details: Positives besides what was mentioned in HPI are in BOLD Constitutional: No Weight Change, No Fever, No Chills, No Night Sweats, No Fatigue, No Malaise ENT/Mouth: No Hearing Changes, No Ear Pain, No Nasal Congestion, No Sinus Pain, No Hoarseness, No sore throat, No Rhinorrhea, No Swallowing Difficulty Eyes: No Eye Pain, No Swelling, No Redness, No Foreign Body, No Discharge, No Vision Changes Cardiovascular: No Chest Pain, No SOB, No PND, No Dyspnea on Exertion, No Orthopnea, No Claudication, No Edema, No Palpitations Respiratory: No Cough, No Sputum, No Wheezing, No Smoke Exposure, No Dyspnea Gastrointestinal: No Nausea, No Vomiting, No Diarrhea, No Constipation, No Pain, No Heartburn, No Anorexia, No Dysphagia, No Hematochezia, No Melena, No Flatulence, No Jaundice Genitourinary: No Dysmenorrhea, No DUB, No Dyspareunia, No Dysuria, No Urinary Frequency, No Hematuria, No Urinary Incontinence, No Urgency, No Flank Pain, No Urinary Flow Changes, No Hesitancy Musculoskeletal: No Arthralgias, No Myalgias, No Joint Swelling, No Joint Stiffness, No Back Pain, No Neck Pain, No Injury History Skin: No Skin Lesions, No Pruritis, No Hair Changes, No Breast/Skin Changes, No Nipple Discharge Neuro: No Weakness, No Numbness, No Paresthesias, No Loss of Consciousness, No Syncope, No Dizziness, No Headache, No Coordination Changes, No Recent Falls Psych: No Anxiety/Panic, No Depression, No Insomnia, No Personality Changes, No Delusions, No Rumination, No SI/HI/AH/VH, No Social Issues, No Memory Changes, No Violence/Abuse Hx., No Eating Concerns Heme/Lymph: No Bruising, No Bleeding, No Transfusions History, No Lymphadenopathy Endocrine: No Polyuria, No Polydipsia, No Temperature Intolerance Physical exam (Primary Care) Vital Signs: Last Vital Signs Pulse 87 11/19/24 14:01 BP 140/90 H 11/19/24 14:01 Pulse Ox 97 11/19/24 14:01 Oxygen Delivery Method Room Air 11/19/24 14:01 BMI result Body Mass Index 45.0 Tobacco/Smoking Status: Tobacco use Status Tobacco use date assessed 09/18/24 11/19/24 14:00 Patient Tobacco Use Status Current everyday Tobacco 11/19/24 14:00 Tobacco use type Cigarette 11/19/24 14:00 e-Cigarette/Vaping Use Never Used 11/19/24 14:00 Thrive Assessment: Date of Thrive Assessment Date Thrive assessed 09/18/24 11/19/24 14:00 Currently or been in a relationship where the following occur: I choose not to answer Const Other: Pertinent findings are in BOLD GENERAL APPEARANCE NAD, activity normal for age, well developed/ well nourished, no cyanosis, pallor, or diaphoresis. EYES lids/conjunctiva normal. EARS/NOSE/THROAT Mucous membranes moist, nares normal, lips/teeth normal uvula midline without oral pharyngeal erythema, exudate or swelling TMs normal bilaterally. No lymphangitis/lymphedema. HEAD/NECK normocephalic atraumatic, no facial trauma, neck is supple. RESPIRATORY respiratory effort normal, speaks in full sentences, no tripod position, no accessory muscle use. Lungs clear to auscultation without rhonchi, wheezes, rales CARDIAC Regular rate and rhythm, no edema. ABDOMINAL Soft, ND/NT. No evidence of fluid wave. No pulsatile masses on exam, rebound tenderness, Jensen sign or pain over Mcburney's point. MUSCLES/EXTREMITIES No abnormal range of motion, no swelling. SKIN Warm, pink and dry. No rashes, dermatoses, petechiae or lesions. NEUROLOGICAL Speech is clear and appropriate. Normal level of consciousness. Gait and coordination are normal. 5/5 strength in all extremities. PSYCH Normal mood and affect. Judgement/competence is appropriate Skin: left trunk side mole looks normal. No skin changes in the tender area. Coding Level of Care Code Est Pt Level 4 (48878) Diagnoses Intermittent palpitations R00.2 Primary hypertension I10 Hypertension type: primary hypertension Muscle pain M79.10 Class 3 severe obesity without serious comorbidity with body mass index (BMI) of 45.0 to 49.9 in adult, unspecified obesity type E66.813; Z68.42 Obesity type: unspecified obesity type Obesity classification: adult class 3 (BMI >= 40) Serious obesity comorbidity presence: without serious comorbidity Body mass index: BMI 45.0-49.9 Time Spent (min) 30 Comment Lifestyle modifications. Assessment & Plan Assessment & Plan (1) Intermittent palpitations: Code(s): R00.2 - Palpitations Category: Medical Plan: Restart metoprolol 25 mg Daily. New cardiology referral placed as patient wants a second opinion. (2) HTN (hypertension): Code(s): I10 - Essential (primary) hypertension Category: Medical Qualifiers: Hypertension type: primary hypertension Qualified Code(s): I10 - Essential (primary) hypertension Plan: Started MEtop as BP was high in clinic today and the patient has history of palpitaitons (3) Muscle pain: Code(s): M79.10 - Myalgia, unspecified site Category: Medical Plan: Voltaren gel. (4) Obesity: Code(s): E66.9 - Obesity, unspecified Category: Medical Qualifiers: Obesity type: unspecified obesity type Obesity classification: adult class 3 (BMI >= 40) Serious obesity comorbidity presence: without serious comorbidity Body mass index: BMI 45.0-49.9 Qualified Code(s): E66.813 - Obesity, class 3; Z68.42 - Body mass index [BMI] 45.0-49.9, adult Plan: Advised on cutting out specific types of food especially processed sugar, cheese and red meat. Plan I discussed with the patient the management of her hypertension and palpitations, recommending the use of metoprolol to address both conditions. We also talked about the potential side effects of metoprolol, such as fatigue, and advised taking it at night. The patient was informed about the referral to [facility] for further cardiology evaluation. For musculoskeletal pain, I recommended the use of Voltaren gel and advised follow-up if symptoms persist. Orders: Referrals Cardiology Referral R00.2 - Palpitations Medications: New diclofenac sodium 1% (Voltaren Arthritis Pain) apply to single elbow, wrist or hand; for hand includes palm/fingers/back of hand 2 grams topical QID 50 grams 0RF 2 weeks Refilled metoprolol succinate ER 25 mg PO DAILY 90 tabs 1RF 90 days
[2024-11-19 14:01] VITALS: BP 140/90; PULSE 87; O2SAT 97; BMI 45.0
--- OUTSIDE RECORDS SUMMARY | 2024-11-19 15:58 | XMS_ITS | Clinical Summary ---
Author Organization [place] [address] [facility] Building Address [facility] [place] [address] Phone Care Team Providers Care Rn Urgent Care Name Role Phone Jermaine Waldron MD Primary Care Provider Allergies Active Allergy Reactions Criticality Noted Date Comments Atorvastatin 09/24/2024 Chest pain Medications dicyclomine (BENTYL) 10 mg capsule 2 Active famciclovir (FAMVIR) 250 mg tablet Take 1 tablet (250 mg total) by mouth 2 (two) times a day. 1 Active rosuvastatin (CRESTOR) 5 mg tablet Take 1 tablet (5 mg total) by mouth 1 (one) time each day. 0 Active FLUoxetine (PROzac) 10 mg capsule Take 2 capsules (20 mg total) by mouth 1 (one) time [...] as needed. 2 puffs as needed Active budesonide-for moteroL (SYMBICORT) 160-4.5 mcg/actuation inhaler Inhale 2 puffs by mouth 2 (two) times a day. 5 Active metoprolol succinate (TOPROL-XL) 25 mg 24 hr tablet Take 1 tablet (25 mg total) by mouth 1 (one) time each day. 5 Active albuterol 2.5 mg /3 mL (0.083 %) nebulizer solution Take 3 mL (2.5 mg total) by nebulization 4 (four) times a day. 5 Active buPROPion XL (WELLBUTRIN XL) 150 mg 24 hr tablet Take 1 tablet (150 mg total) by mouth 1 (one) time each day in the morning. 5 Active cholecalcifero l (VITAMIN D-3) 50 mcg (2,000 unit) capsule Take 1 capsule (2,000 Units total) by mouth 1 (one) time each day. 5 Active loratadine (CLARITIN) 10 mg tablet Take 1 tablet (10 mg total) by mouth 1 (one) time each day. Active metroNIDAZOLE (METROGEL) 0.75 % (37.5mg/5 gram) vaginal gel Insert 1 Applicatorful into the vagina at bedtime for 5 days. 75 g 5 025 Active Problems Problem Noted Date Diagnosed Date Anxiety 03/30/2008 Depression 03/30/2008 Encounters Date Type Department Care Team Description 11/13/2024 10:00 AM EDT Office Visit [facility] [address] [facility] [place] [phone] Jennifer Gaviria, TIBURCIO Women's annual routine gynecological examination (Primary Dx); Papanicolaou smear of cervix with low risk human papillomavirus (HPV) DNA test positive; Elevated blood pressure reading in office without diagnosis of hypertension; Family history of cervical cancer; BV (bacterial vaginosis); Encounter for nonprocreative genetic counseling; Screening for genetic disease carrier status 09/23/2024 Telephone Gastroenterology - [place] [address] [place] [address] Eric Ayoub MD 09/21/2024 12:55 PM EDT - 09/21/2024 11:59 PM EDT Hospital Encounter Radiology Department - [address] [phone] Encounter for screening mammogram for breast cancer Discharge Disposition: Home or Self Care from Last 3 Months Immunizations Name Administration Dates Next Due Influenza [...] care for your loved ones. For example, children's tutor or elderly care for an older adult? [...] is your living situation? 1 04/16/2023 Comments No Sex and Gender Information Value Date Recorded Sex Assigned at Not on file Legal Sex Female 9:00 AM EST Gender Identity Not on file Sexual Orientation Not on file Obstetrics History * This document contains information received from the source organization and may not represent a complete record from that organization. Para Term AB IAB SAB Ectopic Multiple Livin g Live Births 9 6 6 6 6 Date Outcome GA Total Labor Labor/2nd/3rd Weight Sex Type Anes PTL Roya A1 A5 Name Clin 1990 Term 41w 0d 15h 00m/ 3544 g (125 oz) F Vag-S pont Local N Livin g Meliss a 1992 Term 40w 0d 3515 g (124 oz) F Vag-S pont None N Livin g Ania l Delivery Location[facility] 1996 Term 40w 0d 3884 g (137 oz) M Vag-S pont None N Livin g Kirill Delivery Location:[facility] 2004 Term 40w 0d 3827 g (135 oz) M Vag-S pont None N Livin g Robert hi Delivery Location:[facility] 2006 2007 2007 2008 Term 40w 4d 9h 12m/ 3856 g (136 oz) M [facility]S [facility] N [facility] Comments:gbs+,inductio n 2011 Term 39w 3d 9h 17m/ 3180 g (112.2 oz) F Vag-S pont Epidur al N Livin g 8 9 Nevea Malnorman ey Delivery Location:[facility] Comments:augmented, nu chal x 1 loose, bilat labial lac with repair Last Filed Vital Signs Vital Sign Reading Time Taken Comments Blood Pressure 141/105 11/13/2024 10:09 AM EDT Pulse 84 11/13/2024 10:09 AM EDT Temperature - - Respiratory Rate - - Oxygen Saturation - - Inhaled Oxygen Concentration - - Weight 132 kg (290 lb) 11/13/2024 10:09 AM EDT Height 170.2 cm (5' 7 ) 12/01/2021 1:34 PM EDT Body Mass Index 45.42 12/01/2021 1:34 PM EDT Plan of Treatment Upcoming Encounters Date Type Department Care Team (Late st Contact Info) Description 12/18/2024 12:30 PM EDT Appointment [facility] [address] [place] [phone] Marty Lizama MD [address] [address] Health Maintenance Due Date Last Done Comments Pneumococcal Vaccine: 50+ Years (2 of 2 - PCV) 05/19/2016 05/20/2015 DTaP,Tdap,and Td Vaccines (2 - Td or Tdap) 01/22/2020 01/21/2010 Cholesterol Screening (Lipid Panel) 02/10/2022 Colorectal Cancer Screening: Colonoscopy 02/10/2022 Zoster Vaccines (1 of 2) 2024 COVID-19 Vaccine (4 - 2025-26 season) 2024 12/21/2020, 05/11/2020, 04/20/2020 Influenza Vaccine (#1) 2024 01/20/2016, 2007 Social Influencers of Health Screening 02/13/2025 02/14/2024 Breast Cancer Screening 09/21/2026 09/22/19, 05/03/2023, 05/03/2023, Additional history exists Cervical Cancer Screening: HPV 11/13/2029 11/13/2024, 12/01/2021 RSV Immunization Adult Patients (1 - 1-dose 75+ series) 2049 Hepatitis C Screening Completed 01/07/2015 HIV Screening Completed 01/13/2016 Hepatitis B Vaccines Completed 11/22/2022, 08/22/2022, 04/03/2022 Depression Screening Completed 11/12/2024 HIB Vaccines Aged Out No longer eligi [...] Procedure Name Priority Date/Time Associated Diagnosis Comments HPV WITH REFLEX GENOTYPE Routine 11/13/2024 10:52 AM EDT Women's annual routine gynecological examination Papanicolaou smear of cervix with low risk human papillomavirus (HPV) DNA test positive POC WET MOUNT Routine 11/13/2024 10:51 AM EDT BV (bacterial vaginosis) MG MAMMO DIGITAL SCREENING W DECALN BILAT Routine 09/21/2024 1:06 PM EDT Encounter for screening mammogram for breast cancer HIV SCREENING Routine 01/13/2016 HEPATITIS C SCREENING Routine 01/07/2015 from Last 3 Months or Most Recently Relevant to Health Maintenance Results * (ABNORMAL) HPV with reflex genotype (11/13/2024 10:52 AM EDT) HPV Positive( A) Negative LAB MICROBIOLOGY METHOD 11/19/2024 2:41 PM EDT [facility] Brushing Cervix uteri structure / Unknown 11/13/2024 10:52 AM EDT 11/16/2024 6:45 AM EDT Jennifer [facility] MOLECULAR DIAGNOSTICS ORD ERABLES Final Result [facility] [address] [place] [address], [place] [phone] * (ABNORMAL) POC Wet Mount (11/13/2024 10:51 AM EDT) Clue Cells, Wet Prep POC Positive(A) Not Applicable, Negative WBC, Wet Prep POC Positive(A) Not Applicable, Negative RBC, Wet Prep POC Negative Not Applicable, Negative Whiff Test, Wet Prep POC Positive(A) Not Done, Negative Vaginal Fluid Vaginal structure / Unknown 11/13/2024 10:51 AM EDT Jennifer Gaviria [facility] POINT OF CARE TEST ENTER/EDIT ORDERABLES Final Result * MG Mammo Digital Screening w Declan bilat (09/21/2024 1:06 PM EDT) Anatomical Region Laterality Modality Breast Bilateral Mammography 09/23/2024 7:42 AM EDT Impressions 09/23/2024 7:43 AM EDT No mammographic evidence of malignancy. BREAST DENSITY: B - There are scattered areas of fibroglandular density. BI-RADS CATEGORY: 1 - NEGATIVE RECOMMENDATION: Screening bilateral mammogram is recommended in 1 year. MAMMO LOCATION: [facility], [address] [place] [address], [id number], . -------- FINAL REPORT -------- Dictated By: Jennifer Garcia Dictated Date: 09/23/2024 07:42 ET Assigned Physician: Jennifer Garcia Reviewed and Electronically Signed By: Jennifer Garcia Signed Date: 09/23/2024 07:43 ET Workstation ID: [id number] Transcribed By: Self Edit Transcribed Date: 09/23/2024 07:42 ET Narrative 09/23/2024 7:43 AM EDT EXAM: Screening Mammogram CLINICAL: 49 years old, Female, routine annual exam. COMPARISON: 05/03/2023 and as far back as 12/23/2019 TECHNIQUE: Bilateral MLO and CC views were obtained digitally with 3-D mammogram (digital breast tomosynthesis). Computer-aided detection was utilized in evaluation of this exam (CAD). FINDINGS: No new suspicious mass, architectural distortion, or suspicious calcifications. Procedure Note Jennifer Garcia MD - 09/23/2024 EXAM: Screening Mammogram CLINICAL: 49 years old, Female, routine annual exam. COMPARISON: 05/03/2023 and as far back as 12/23/2019 TECHNIQUE: Bilateral MLO and CC views were obtained digitally with 3-Dmammogram (digital breast tomosynthesis). Computer-aided detection wasutilized in evaluation of this exam (CAD). FINDINGS: No new suspicious mass, architectural distortion, or suspiciouscalcifications. IMPRESSION: No mammographic evidence of malignancy. BREAST DENSITY: B - There are scattered areas of fibroglandular density. BI-RADS CATEGORY: 1 - NEGATIVE RECOMMENDATION: Screening bilateral mammogram is recommended in 1 year. MAMMO LOCATION: [facility], [address] [place] [address], [id number], . -------- FINAL REPORT -------- Dictated By: Jennifer Garcia Dictated Date: 09/23/2024 07:42 ET Assigned Physician: Jennifer Garcia Reviewed and Electronically Signed By: Jennifer Garcia Signed Date: 09/23/2024 07:43 ET Workstation ID: [id number] Transcribed By: Self Edit Transcribed Date: 09/23/2024 07:42 ET Jennifer Gaviria CNM IMG BI PROCEDURES Final Resul t * HIV Screening (01/13/2016) HIV Screening ABSTRACTED Historical Provider MD HEALTH MAINTENANCE Final Result * Hepatitis C Screening (01/07/2015) Hepatitis C Screening ABSTRACTED Historical Provider HEALTH MAINTENANCE Final Result from Last 3 Months or Most Recently Relevant to Health Maintenance Insurance MEDICAID - [place] Care Teams Rn Urgent Care Relationship Specialty Start Date End Date Jermaine Waldron MD [address] [place] [address] [place] [address] PCP - General Internal Medicine 09/23/24
== END 2024-11-19 14:38 | disposition home or self-care (01) ==
LOC: HO.HMCH 13:57
PROVIDERS: PCP Internal Medicine; Visit Provider Internal Medicine
DX: R00.2 Palpitations (principal); E66.813 Obesity, class 3; Z68.42 Body mass index [BMI] 45.0-49.9, adult; I10 Essential (primary) hypertension; M79.10 Myalgia, unspecified site

== ENCOUNTER 2025-01-18 10:58 | Outpatient (REF) | payer OTHER, MEDICAID, SELFPAY ==
[2025-01-18 13:17] LABS: Appearance Urine Cloudy; Glucose Urine UA Negative (Negative); PH 7.0 (5.0-9.0); Specific Gravity - Urine 1.025 (1.005-1.025); UMIC TRIGGER UACC YES
[2025-01-18 14:02] LABS: UACC Culture Trigger YES
[2025-01-18 14:08] LABS: Alanine Aminotransferase 39 U/L (0-31); Albumin Level 4.6 g/dL (3.5-5.0); Alkaline Phosphatase 80 U/L (39-117); Anion Gap 12 (12-20); Aspartate Amino Transferase 41 U/L (5-31); Blood Urea Nitrogen 17 mg/dL (9-16); Calcium 9.6 mg/dL (8.4-10.2); Carbon Dioxide 27 mmol/L (22-29); Chloride 106 mmol/L (96-108); Cholesterol 243 mg/dL (<200); Estimated Glomerular Filt Rate > 60; HDL Cholesterol 50 mg/dL (>40); Potassium 4.1 mmol/L (3.3-5.1); Sodium 141 mmol/L (135-145); Total Protein 7.4 g/dL (6.5-8.0); Triglycerides 88 mg/dL (<150)
[2025-01-18 14:23] LABS: Folate 9.4 ng/mL (> or = 4.0); Vitamin B12 457 pg/mL (200-900)
== END 2025-01-18 10:59 | disposition home or self-care (01) ==
LOC: HO.HMGCLDS 10:58
PROVIDERS: PCP Internal Medicine; Visit Provider Internal Medicine
DX: E78.00 Pure hypercholesterolemia, unspecified (principal); E55.9 Vitamin D deficiency, unspecified; E53.8 Deficiency of other specified B group vitamins; R73.9 Hyperglycemia, unspecified
CPT/HCPCS: 36415; 80053; 80061; 81001; 81003; 82306; 82607; 82746; 83036; 84443; 87086

== ENCOUNTER 2025-01-22 13:17 | Outpatient (AMB) | payer OTHER, MEDICAID, SELFPAY ==
--- NOTE | 2025-01-22 13:25 | A.OFFPC_ITS ---
Vital Signs 01/22/25 13:26 Height 5 ft 7.5 in BMI Reason not done Patient refused/unable BP 132/80 Blood Pressure Location Lt brachial Position Sitting Pulse 68 Pulse Source Pulse Oximeter Pulse Oximetry (%) 95 Oxygen Delivery Method Room Air Intake Visit Reasons: 4 months Accompanied by: Self / Same As Patient Allergies atorvastatin Allergy (Unknown, Verified 01/22/25 13:47) chest pain Medication List - Last Reconciled 01/22/25 by Jermaine Waldron MD albuterol sulfate 90 mcg/actuation 2 puffs inhalation Q4-6H PRN 30 days albuterol sulfate 2.5 mg (3 mL) continuous nebulization QID PRN 30 days budesonide-formoterol 160-4.5 mcg/actuation (Symbicort) 2 inhalations inhalation BID 30 days bupropion HCl XL 150 mg PO QAM bupropion HCl XL 300 mg PO QAM cholecalciferol (vitamin D3) 50 mcg PO DAILY 90 days clonazepam 1/2 to 1 tablet orally once a day as needed for anxiety; 30 days codeine-guaifenesin 10-100 mg/5 mL 5 mL PO Q6H PRN 5 days diclofenac sodium 1% (Voltaren Arthritis Pain) 2 grams topical QID 2 weeks fluoxetine 20 mg PO QAM 90 days loratadine 10 mg PO DAILY PRN 90 days metoprolol succinate ER 25 mg PO DAILY 90 days omeprazole 40 mg PO DAILY sennosides-docusate sodium 8.6-50 mg (Senokot-S) 1 tab-cap PO BEDTIME 90 days Tobacco use date assessed: 01/22/25 Dental Screening Dental Screen Date: 01/22/25 Did you have a dental visit in the last 12 months?: No Did you have a dental problem in the last 6 months where you did not have access to dental care?: No Was dental information given to patient?: Patient has dentist HPI 4 months HPI Details Patient comes in today for her follow-up visit States that she feels okay She denies any headaches or dizziness Denies any chest pains, no increased shortness of breath Nausea/vomiting, no abdominal pain No change in bowel habits noted She had her follow up labs done a few days ago - to discuss her results She continues to feel frustrated at her inability to lose weight despite her best attempts at dieting and exercising over the past few months [facility] Medical History Constipation Hyperlipidemia Hypertension Morbid obesity Elevated LFTs Morbid obesity with BMI of 40.0-44.9, adult Depression Anxiety Morbid obesity with BMI of 45.0-49.9, adult Hypoglycemia Recurrent urinary tract infection Smoker Insomnia Fatigue GERD without esophagitis Vitamin D deficiency Asthma Pure hypercholesterolemia Dizziness Surgical History History of use of contraceptive intrauterine device (IUD) Family History Father Hypertension Mother Diabetes Sister Cervical cancer Social History Housing: House Alcohol intake: current Alcohol intake frequency: holidays/special occasions only Patient Tobacco Use Status: Current everyday Tobacco user Tobacco use type: Cigarette Cigarette Packs Per Day: 0.25 Cigarettes Per Day: 5 e-Cigarette/Vaping Use: Never Used Second Hand Smoke Exposure: Yes service: No Current occupational status: employed Cognitive needs: No Hearing needs: No Vision needs: No Questionnaire PHQ-9 Over the last 2 weeks, how often have you been bothered by any of the following problems? 1. Little interest or pleasure in doing things: not at all 2. Feeling down, depressed, or hopeless: not at all 3. Trouble falling or staying asleep, or sleeping too much: not at all 4. Feeling tired or having little energy: not at all 5. Poor appetite or overeating: not at all 6. Feeling bad about yourself - or that you are a failure or have let yourself or your family down: not at all 7. Trouble concentrating on things, such as reading the newspaper or watching television: not at all 8. Moving or speaking so slowly that other people could have noticed. Or the opposite - being so fidgety or restless that you have been moving around a lot more than usual: not at all 9. Thoughts that you would be better off or of hurting yourself in some way: not at all Total score: 0 Depression Screening Interpretation: Negative Depression Screening Done: Yes 13323 - PHQ-9 Billing: Yes Source: Developed by Drs. Froylan Marie, Jason Stoll and colleagues, with an educational mani from [employer]. Thrive Questionnaire Date Thrive assessed: 01/22/25 I am a: Patient What is your living situation today?: I choose not to answer this question Within the past 12 months, did the food you bought not last and you didn't have the money to get more?: I choose not to answer this question Within the past 12 months, did you worry whether your food would run out before you got money to buy more?: I choose not to answer this question Do you have trouble paying for medicines?: No Do you have trouble getting transportation to medical appointments?: No Do you have trouble paying your heating and electricity bill?: No Do you have trouble taking care of your child, family member or friend?: No Do you have trouble with day-to-day activities such as bathing, preparing meals, shopping, managing finances, etc.?: No Are you currently unemployed and looking for a job?: Yes Are you interested in more education?: No Please select the resources that you would like help with: None Currently or been in a relationship where the following occur: I choose not to answer THRIVE Score: 0 AUDIT C Alcohol Use Questionnaire (AUDIT-C) 1. How often do you have a drink containing alcohol?: Never 3. How often do you have six or more drinks on one occasion?: Never Total Score: 0 Score Reviewed/Action Taken: Yes CHARO-7 AMB Questionnaire CHARO-7 Date CHARO - 7 assessed: 01/22/25 Feeling nervous, anxious, or on edge: 0 = Not at all Not being able to stop or control worryin = Not at all Worrying too much about different things: 0 = Not at all Trouble relaxin = Not at all Being so restless that it is hard to sit still: 0 = Not at all Becoming easily annoyed or irritable: 0 = Not at all Feeling afraid as if something awful might happen: 0 = Not at all Total CHARO-7 score (0-4 normal; 5-9 mild; 10-14 moderate; 15-21 severe): 0 Source: Developed by Kathy Kaye Kurt Kroenke and colleagues, with an educational mani from [employer]. Review of Systems Const Denies chills, Denies fatigue, Denies fever(s) and Denies headache(s) ENT Denies dysphagia, Denies dizziness, Denies otalgia, Denies headache(s), Denies neck pain, Denies odynophagia and Denies sore throat Card Denies chest pain, Denies rapid heart rate, Denies irregular heart rhythm, Denies palpitations and Denies dyspnea Resp Denies chest congestion, Denies cough, Denies dyspnea and Denies wheezing GI Denies abdominal pain, Denies constipation, Denies dysphagia, Denies heartburn, Denies diarrhea, Denies nausea, Denies odynophagia and Denies vomiting Denies urinary frequency, Denies dysuria and Denies urinary urgency Musc Denies back pain, Denies arthralgias and Denies neck pain Skin/Breast Denies rash Neuro Denies dizziness, Denies headache(s) and Denies paresthesias Psych Denies anxiety and Denies depression Endo Denies fatigue and Denies palpitations Kush/Lymph Denies easy bruising Aller/Immun Denies wheezing Physical exam (Primary Care) Vital Signs: Last Vital Signs Pulse 68 01/22/25 13:26 BP 132/80 01/22/25 13:26 Pulse Ox 95 01/22/25 13:26 Oxygen Delivery Method Room Air 01/22/25 13:26 Tobacco/Smoking Status: Tobacco use Status Tobacco use date assessed 01/22/25 01/22/25 13:35 Patient Tobacco Use Status Current everyday Tobacco 01/22/25 13:35 Tobacco use type Cigarette 01/22/25 13:35 e-Cigarette/Vaping Use Never Used 01/22/25 13:35 PHQ-9: PHQ-9 Score PHQ-9: Total score 0 01/22/25 14:00 Depression Screening Interpretation: Negative Thrive Assessment: Date of Thrive Assessment Date Thrive assessed 01/22/25 01/22/25 13:35 Currently or been in a relationship where the following occur: I choose not to answer Const General: no acute distress and alert HENMT Ears: TM's normal bilaterally and EAC's normal Throat: Yes posterior oropharynx normal and Yes tonsils normal (no TP congestion) Neck Neck: Yes supple and No lymphadenopathy Thyroid: Thyroid normal Resp Auscultation: clear to auscultation bilaterally, no rales and no wheezes Cardio Rate: regular rate Rhythm: regular rhythm Heart sounds: no murmurs GI Palpation (GI): Soft to palpation and nontender Auscultation: normal bowel sounds General: Yes no CVA tenderness Back/Spine/Pelvis Back: no CVA tenderness Thoracic/Lumbar Spine: No lumbar spinal tenderness Skin Rashes: no rashes Extrem General: Yes no clubbing, cyanosis or edema Results Reviewed Results Reviewed: Laboratory Tests 01/18/25 11:17 Sodium 141 Potassium 4.1 Creatinine 0.69 Estimated GFR > 60 Fasting Glucose 92 Hemoglobin A1c % 6.0 Calcium 9.6 AST 41 H ALT 39 H Triglycerides 88 Cholesterol 243 H LDL Cholesterol, Calc 176 H HDL Cholesterol 50 Vitamin B12 457 25-OH Vitamin D Total 24.1 L TSH 1.80 Ur Specific Mallory 1.025 Urine Protein Trace Urine Glucose (UA) Negative Urine Blood Negative Urine Nitrite Negative Ur Leukocyte Esterase Small (1+) H Coding Level of Care Code Est Pt Level 4 (42299) Diagnoses Moderate persistent asthma without complication J45.40 Asthma complication type: uncomplicated Asthma persistence: persistent Asthma severity: moderate Heart palpitations R00.2 Pure hypercholesterolemia E78.00 Elevated LFTs R79.89 Vitamin D deficiency E55.9 Constipation, unspecified constipation type K59.00 Constipation type: unspecified constipation type Anxiety F41.9 Depression, unspecified depression type F32.9 Depression Type: unspecified Smoker F17.200 Morbid obesity with BMI of 45.0-49.9, adult E66.01; Z68.42 Additional Codes PHQ-9 - 16295 - PHQ-9 Billing: Yes ([id number]) Assessment & Plan Assessment & Plan (1) Asthma: Code(s): J45.909 - Unspecified asthma, uncomplicated Category: Medical Qualifiers: Asthma complication type: uncomplicated Asthma persistence: persistent Asthma severity: moderate Qualified Code(s): J45.40 - Moderate persistent asthma, uncomplicated Plan: Better controlled lately Continue Symbicort 160-4.5 mcg 2 inahalations BID and Albuterol HFA 2 inhalations Q 6 hours PRN (2) Heart palpitations: Code(s): R00.2 - Palpitations Category: Medical Plan: Cardiac work ups done in the past, including echocardiogram, 3-day Holter monitor and 7 day Holter monitor, were all normal She was seen by cardiology and was advised to continue on Metoprolol ER 25 mg QD (can take PRN) for symptomatic control/relief Follow up with cardiology as scheduled (3) Pure hypercholesterolemia: Code(s): E78.00 - Pure hypercholesterolemia, unspecified Category: Medical Plan: Results of her labs done a few days ago reviewed and discussed with patient - her cholesterol levels have increased again from previous and her LDL cholesterol is now at 176 mg/dL Reinforced low cholesterol diet She was on Rosuvastatin 5 mg QD but she self-discontinued her Rx last year as she was supposedly worried about the potential side effects associated with the Rx and would like to just continue with diet modification for now; she also had side effects (chest pains) form Atorvastatin in the past Will recheck her labs and fasting lipids in 4 months for follow-up (4) Elevated LFTs: Code(s): R79.89 - Other specified abnormal findings of blood chemistry Category: Medical Plan: Her LFTs were still slightly elevated on her recent labs and are most likely due to her weight Will continue to monitor her LFTs regularly/closely (5) Vitamin D deficiency: Code(s): E55.9 - Vitamin D deficiency, unspecified Category: Medical Plan: Continue Vitamin D3 2000 units QD (6) Constipation: Code(s): K59.00 - Constipation, unspecified Category: Medical Qualifiers: Constipation type: unspecified constipation type Qualified Code(s): K59.00 - Constipation, unspecified Plan: Reinforced increased oral fluids and dietary fiber intake Continue Senokot-S Q HS PRN - states that this seems to be working better for her than any other Rx that she has tried in the past to help with her bowel movements (7) Anxiety: Code(s): F41.9 - Anxiety disorder, unspecified Category: Medical Plan: Continue Clonazepam 0.5 mg 1/2 to 1 tablet once a day as needed and Fluoxetine 20 mg QD She has been referred to psychiatry and also for counseling and therapy (8) Depression: Code(s): F32.9 - Major depressive disorder, single episode, unspecified Category: Medical Qualifiers: Depression Type: unspecified Qualified Code(s): F32.9 - Major depressive disorder, single episode, unspecified Plan: Continue Bupropion ER 450 mg QD and Fluoxetine 20 mg QD She has been referred to psychiatry for further evaluation and management (9) Smoker: Code(s): F17.200 - Nicotine dependence, unspecified, uncomplicated Category: Social Hx Plan: Patient is counseled again on complete smoking cessation (10) Morbid obesity with BMI of 45.0-49.9, adult: Code(s): E66.01 - Morbid (severe) obesity due to excess calories; Z68.42 - Body mass index [BMI] 45.0-49.9, adult Category: Medical Plan: Reinforced diet/exercise as tolerated/lose weight She was previously referred to Weight Management - patient states that she was interested only in the medical weight management aspect but she somehow ended up being seen and considered for bariatric surgery She was recommended to undergo sleeve gastrectomy, which she continues to feel very anxious about and eventually decided that she does not want to have bariatric surgery done and would like to continue with her current attempts to lose weight Her health insurance has denied all previous attempts to start her on a GLP-1 Rx to help her lose weight She previously requested for a referral to weight management at [place] as her current attempts at weight loss do not seem to be producing much results for her at this time - referral was placed but she is still waiting to be seen at weight management Plan Follow up in 4 months Orders: Orders Comprehensive [place]. Panel Fast 4 Months E78.00 - Pure hypercholesterolemia, unspecified TSH reflex Free T4 4 Months E78.00 - Pure hypercholesterolemia, unspecified UA CC w/rflx Micro + Cult 4 Months R30.0 - Dysuria Hemoglobin A1c 4 Months R73.9 - Hyperglycemia, unspecified Complete Blood Count Auto Diff 4 Months D64.9 - Anemia, unspecified Lipid Panel 4 Months E78.00 - Pure hypercholesterolemia, unspecified Vitamin D 25-OH Total 4 Months E55.9 - Vitamin D deficiency, unspecified
[2025-01-22 13:26] VITALS: BP 132/80; PULSE 68; O2SAT 95
--- OUTSIDE RECORDS SUMMARY | 2025-01-22 13:35 | XMS_ITS | Clinical Summary ---
Author Organization [place] [address] [facility] Building Address [facility] [place] [address] Phone Care Team Providers Care Guidance Director Name Role Phone Jermaine Waldron MD Primary Care Provider [phone] Allergies Active Allergy Reactions Criticality Noted Date [...] as needed. 2 puffs as needed Active budesonide-form oteroL (SYMBICORT) 160-4.5 mcg/actuation inhaler Inhale 2 puffs [...] each day in the morning. 5 Active cholecalciferol (VITAMIN D-3) 50 mcg (2,000 unit) capsule Take 1 capsule (2,000 Units total) by mouth 1 (one) time each day. 5 Active loratadine (CLARITIN) 10 mg tablet Take 1 tablet (10 mg total) by mouth 1 (one) time each day. Active bisacodyL (DULCOLAX) 5 mg EC tablet Take 2 tablets by mouth right before beginning bowel prep. See instructions provided by the office 2 tablet Active polyethylene glycol (Golytely) 236-22.74-6.74 -5.86 gram solution Take 4L by mouth once for one dose. May substitue any PEG. Starting at 2PM the day before your procedure drink 1 8oz glasses at your own pace until you complete half of the gallon. Finish 2nd half of the gallon at 8PM. 4000 mL 5 Active Active Problems Problem Noted Date Diagnosed Date Anxiety 03/30/2008 Depression 03/30/2008 Encounters Date Type Department Care Team Description 12/17/2024 Telephone Gastroenterology - [address] [facility] [address] [place] [address] Marty Lizama MD 11/30/2024 Results Follow-Up Obstetrics and Gynecology - [facility] [address] [place], [place] [phone] Jennifer Gaviria CNM 11/13/2024 10:00 AM EDT [facility] [address] [place] [address] Jennifer Gaviria CNM Women's annual routine gynecological examination (Primary Dx); Papanicolaou smear of cervix with low risk human papillomavirus (HPV) DNA test positive; Elevated blood pressure reading in office without diagnosis of hypertension; Family history of cervical cancer; BV (bacterial vaginosis); Encounter for nonprocreative genetic counseling; Screening for genetic disease carrier status from Last 3 Months Immunizations Immunization Administration Dates Next Due Influenza trivalent, 0.5mL, [...] for your loved ones. For example, children's aide or elderly care for an older adult? [...] Date Recorded What is your living situation? Unrecognized valu e 02/14/2024 Comments No Sex and Gender Information Value [...] N Livin g Kirill Delivery Location:[facility] 2004 Term 40w 0d 3827 g (135 oz) M Vag-S pont None N Livin g Robert hi Delivery Location:[facility] 2006 2007 2007 2008 Term 40w 4d 9h 12m/ 3856 g (136 oz) M Vag-S pont N Livin g 9 9 Mumtaz Malon ey CNM Delivery Location:[facility] Comments:gbs+,inductio n 2011 Term 39w 3d 9h 17m/ 3180 g (112.2 oz) F Vag-S pont Epidur al N Livin g 8 9 Neveah Malon ey Delivery Location:[facility] Comments:augmented, nu chal x 1 loose, bilat [...] Care Team (Late st Contact Info) Description 02/18/2025 1:30 PM EST Appointment [facility] [address] [place] [phone] Marty Lizama MD [address] [address] Health Maintenance Due Date Last Done Comments Colorectal Cancer Screening: Colonoscopy 1974 Pneumococcal Vaccine: 50+ Years (2 of 2 - PCV) 05/19/2016 05/20/2015 DTaP,Tdap,and Td Vaccines (2 - Td or Tdap) 01/22/2020 01/21/2010 Cholesterol Screening (Lipid Panel) 02/10/2022 RSV Immunization Adult Patients (1 - Risk 50-74 years 1-dose series) 2024 Zoster Vaccines (1 of 2) 2024 COVID-19 Vaccine (4 - season) 2024 12/21/2020, 05/11/2020, 04/20/2020 Influenza Vaccine (#1) 2024 01/20/2016, 2007 Social Influencers of Health Screening 02/13/2025 02/14/2024 Breast Cancer Screening 09/21/2026 09/22/19, 05/03/2023, 05/03/2023, Additional history exists Cervical Cancer Screening: HPV 11/13/2029 11/13/2024, 11/13/2024, 12/01/2021 Hepatitis C Screening Completed 01/07/2015 HIV [...] on patient's age to complete this topic Goals Goal Patient Goal Type Associated Problems Recent Progress Patient-Stated? Author Autogenerat ed Goal Care Plan Autogenerated Problem No Kirby Grijalva Procedures Procedure Name Priority Date/Time Associated Diagnosis Comments PAP SMEAR Routine 11/13/2024 10:52 AM EDT Women's annual routine gynecological examination Papanicolaou smear of cervix with low risk human papillomavirus (HPV) DNA test positive HPV GENOTYPE Routine 11/13/2024 10:52 AM EDT Women's annual routine gynecological examination Papanicolaou smear of cervix with low risk human papillomavirus (HPV) DNA test positive HPV WITH REFLEX GENOTYPE Routine 11/13/2024 10:52 AM EDT Women's annual routine gynecological examination Papanicolaou smear of cervix with low risk human papillomavirus (HPV) DNA test positive POC WET MOUNT Routine 11/13/2024 10:51 AM EDT BV (bacterial vaginosis) MG MAMMO DIGITAL SCREENING W DECLAN BILAT Routine 09/21/2024 1:06 PM EDT Encounter for screening mammogram for breast cancer HIV SCREENING Routine 01/13/2016 HEPATITIS C SCREENING Routine 01/07/2015 from Last 3 Months or Most Recently Relevant to Health Maintenance Results * HPV genotype (11/13/2024 10:52 AM EDT) HPV Type 16 Negative Negative LAB MICROBIOLOGY METHOD 11/25/2024 9:37 AM EDT [facility] HPV Type 18/45 Negative Negative LAB MICROBIOLOGY METHOD 11/25/2024 9:37 AM EDT [facility] HPV Type 16,18, and others Valid LAB MICROBIOLOGY METHOD 11/25/2024 9:37 AM EDT [facility] Brushing Cervix uteri structure / Unknown 11/13/2024 10:52 AM EDT 11/16/2024 6:45 AM EDT us Jennifer [facility] MOLECULAR DIAGNOSTICS ORD ERABLES Final Result [facility] [address] [place] [address], * (ABNORMAL) HPV with reflex genotype (11/13/2024 10:52 AM EDT) HPV Positive( A) Negative LAB MICROBIOLOGY METHOD 11/19/2024 2:41 PM EDT [facility] Brushing Cervix uteri structure / Unknown 11/13/2024 10:52 AM EDT 11/16/2024 6:45 AM EDT Jennifer Gaviria [facility] MOLECULAR DIAGNOSTICS ORD ERABLES Final Result [facility] [address] [place] [address], * Pap smear (11/13/2024 10:52 AM EDT) Interpretation Negative for intraepithelial lesion or malignancy 11/28/2024 3:57 PM EDT [facility] Clinical Information Pap 2021 neg, hpv pos neg high 16/18/45 11/28/2024 3:57 PM EDT [facility] General Categorization Negative 11/28/2024 3:57 PM EDT [facility] Specimen Adequacy Satisfactory for evaluation, endocervical/zarco sformation zone component absent 11/28/2024 3:57 PM EDT [facility] Pap Methodology Liquid Based Pap Test 11/28/2024 3:57 PM EDT [facility] Disclaimer The Pap test is a screening test which carries an inherent false negative rate. These test results should be correlated with the patient's clinical findings and history. This Pap test was processed using an automated screening system. Technical cytopathology services provided by [facility], at [address] [place] [address] (CLIA # [id number]/Love Mcnair MD, Color Separation Photographer.) 11/28/2024 3:57 PM EDT [facility] Console Pap Interpretation Reported 11/28/2024 3:57 PM EDT [facility] Brushing Cervix uteri structure / Unknown 11/13/2024 10:52 AM EDT 11/13/2024 10:52 AM EDT Comment:Pap 2021 neg, hpv po s neg high 16/18/45 Jennifer [facility] CYTOLOGY ORDERABLES Final Result [facility] [address] [place] [address], * (ABNORMAL) POC Wet Mount (11/13/2024 10:51 AM EDT) Clue Cells, Wet Prep POC Positive(A) Not Applicable, Negative WBC, Wet Prep POC Positive(A) Not Applicable, Negative RBC, Wet Prep POC Negative Not Applicable, Negative Whiff Test, Wet Prep POC Positive(A) Not Done, Negative Vaginal Fluid Vaginal structure / Unknown 11/13/2024 10:51 AM EDT Jennifer Gaviria [facility] POINT OF CARE TEST ENTER/EDIT ORDERABLES Final [...] is recommended in 1 year. MAMMO LOCATION: [facility], [address] [place] [address], [id number], . -------- FINAL REPORT -------- Dictated By: Jennifer Garcia Dictated Date: 09/23/2024 07:42 ET Assigned Physician: Jennifer Garcia Reviewed and Electronically Signed By: Jennifer Garcia Signed Date: 09/23/2024 07:43 ET Workstation ID: [id number] Transcribed By: Self Edit Transcribed Date: 09/23/2024 [...] is recommended in 1 year. MAMMO LOCATION: [facility], [address] [place] [address], [id number], . -------- FINAL REPORT -------- Dictated By: Jennifer Garcia Dictated Date: 09/23/2024 07:42 ET Assigned Physician: Jennifer Garcia Reviewed and Electronically Signed By: Jennifer Garcia Signed Date: 09/23/2024 07:43 ET Workstation ID: [id number] Transcribed By: Self Edit Transcribed Date: 09/23/2024 07:42 ET Barla R Gaviria CNM IMG BI PROCEDURES Final Resul t * HIV Screening (01/13/2016) HIV Screening ABSTRACTED Historical Provider HEALTH MAINTENANCE Final Result * Hepatitis C Screening (01/07/2015) Hepatitis C Screening ABSTRACTED Historical Provider HEALTH MAINTENANCE Final Result from Last 3 Months or Most Recently Relevant to Health Maintenance Additional Health Concerns Active Problems Noted Date Diagnosed Date Autogenerated Problem 12/31/2024 Insurance MEDICAID - [place] [employer] Care Teams Guidance Director Relationship Specialty Start Date End Date Jermaine Waldron MD [address] [place] [address] [address] [place], [place] PCP - General Internal Medicine 09/23/24
== END 2025-01-22 14:00 | disposition home or self-care (01) ==
LOC: HO.HMCH 13:18
PROVIDERS: PCP Internal Medicine; Visit Provider Internal Medicine
DX: J45.40 Moderate persistent asthma, uncomplicated (principal); R00.2 Palpitations; E66.01 Morbid (severe) obesity due to excess calories; Z68.42 Body mass index [BMI] 45.0-49.9, adult; E78.00 Pure hypercholesterolemia, unspecified; R79.89 Other specified abnormal findings of blood chemistry; E55.9 Vitamin D deficiency, unspecified; K59.00 Constipation, unspecified; F41.9 Anxiety disorder, unspecified; F32.9 Major depressive disorder, single episode, unspecified; F17.200 Nicotine dependence, unspecified, uncomplicated

== ENCOUNTER → 2025-01-22 13:17 | Outpatient (BNVA) | payer OTHER, MEDICAID, SELFPAY | PROVIDERS: PCP Internal Medicine; Visit Provider Internal Medicine | DX: J45.40 Moderate persistent asthma, uncomplicated (principal); R00.2 Palpitations; E78.00 Pure hypercholesterolemia, unspecified; R79.89 Other specified abnormal findings of blood chemistry; E55.9 Vitamin D deficiency, unspecified; K59.00 Constipation, unspecified; F41.9 Anxiety disorder, unspecified; F32.9 Major depressive disorder, single episode, unspecified; E66.01 Morbid (severe) obesity due to excess calories; F17.210 Nicotine dependence, cigarettes, uncomplicated; Z68.42 Body mass index [BMI] 45.0-49.9, adult | CPT/HCPCS: 96127 ==